=== PATIENT | female | born 1980 | race Hispanic/Latino ===

== ENCOUNTER 2017-03-06 17:26 | Outpatient (RCR) | payer OTHER ==
[~2017-03-06 17:26] MED LIST: ADDERALL 15 MG15 MG PO; AUGMENTIN875 MG MT; CELEXA20 MG PO; DITROPAN XL5 MG PO; KETOROLAC TROME10 MG PO; LEVAQUIN500 MG PO; LORAZEPAM1 MG PO; MACROBID 100 M100 MG PO; TYLENOL # 31 EA PO; TYLENOL WITH C1 EACH PO; ULTRAM 50MG50 MG PO; WELLBUTRIN100 MG PO; Z.0.MACROBID 100 M10 MT; Z.0.TAMIFLU75 MG MT; ZOFRAN ODT4 MG PO
== END 2017-03-31 ==
LOC: PT 17:26
PROVIDERS: ATTEND Neurological Surgery
DX: M51.17 Intervertebral disc disorders with radiculopathy, lumbosacral region (principal); M53.86 Other specified dorsopathies, lumbar region; M62.81 Muscle weakness (generalized)
CPT/HCPCS: 97139

== ENCOUNTER 2017-03-22 06:02 | Emergency (ER) | payer OTHER ==
[~2017-03-22] VITALS: Ht 160 cm; Wt 87.1 kg
[2017-03-22] MEDS ORDERED: PANTOPRAZOLE 40 MG 10ML VIAL IV STA (06:15)
[2017-03-22] MEDS ORDERED: ONDANSETRON HCL INJ 2 MG/ML VIAL IV STA (06:15)
[2017-03-22] MEDS ORDERED: SODIUM CHLORIDE 0.9% 1000ML 1,000 ML IV STA (06:15)
[2017-03-22] MEDS ORDERED: KETOROLAC TROMETHAMINE 30 MG/ML VIAL IV STA (06:15)
[2017-03-22 06:36] LABS: BASOPHILS % 0.2 % (0.0-1.0); EOSINOPHILS # (AUTO) 0.1 (0.0-0.4); EOSINOPHILS % 1.2 % (0.0-6.0); HEMATOCRIT 43.5 % (34.2-44.1); HEMOGLOBIN 14.7 g/dL (12.0-16.0); LYMPHOCYTES # (AUTO) 3.2 (1.0-3.2); LYMPHOCYTES % 34.3 % (18.0-39.1); MEAN CORPUSCULAR HEMOGLOBIN 29.9 pg (28-32); MEAN CORPUSCULAR HGB CONC 33.8 g/dL (31-35); MEAN CORPUSCULAR VOLUME 88.6 fL (81-99); MONOCYTES # (AUTO) 0.7 (0.2-0.8); NEUTROPHILS # (AUTO) 5.3 (2.1-6.9); NEUTROPHILS % 57.1 % (38.7-80.0); PLATELET COUNT 265 x10e3/uL (140-360); RED BLOOD COUNT 4.91 x10e6/uL (3.6-5.1); RED CELL DISTRIBUTION WIDTH 12.8 % (11.7-14.4)
[2017-03-22 06:40] LABS: BILIRUBIN,URINE NEGATIVE (NEGATIVE); CLARITY,URINE HAZY (CLEAR); COLOR,URINE YELLOW (YELLOW); KETONES,URINE NEGATIVE (NEGATIVE); LEUKOCYTE ESTERASE ,URINE NEGATIVE (NEGATIVE); NITRITE,URINE NEGATIVE (NEGATIVE); PROTEIN,URINE DIPSTICK NEGATIVE (NEGATIVE); URINE UROBILINOGEN 0.2 mg/dL (0.2 - 1)
[2017-03-22 06:50] LABS: ALANINE AMINOTRANSFERASE 19 IU/L (0-55); ALBUMIN 3.6 g/dL (3.5-5.0); ALBUMIN/GLOBULIN RATIO 0.9 (0.8-2.0); ALKALINE PHOSPHATASE 58 IU/L (40-150); ANION GAP 12.6 mmol/L (8-16); BLOOD UREA NITROGEN 11 mg/dL (7-26); BUN/CREATININE RATIO 14 (6-25); CALCIUM 9.1 mg/dL (8.4-10.2); CARBON DIOXIDE 26 mmol/L (22-29); CHLORIDE 105 mmol/L (98-107); CREATININE, SERUM 0.77 mg/dL (0.57-1.11); EST GLOMERULAR FILTRATION RATE > 60 ML/MIN (60-); GLUCOSE 98 mg/dL (74-118); POTASSIUM 3.6 mmol/L (3.5-5.1); SODIUM 140 mmol/L (136-145)
[2017-03-22 07:13] LABS: BACTERIA,URINE RARE /HPF; EPITHELIAL CELLS,URINE MODERATE /LPF; WBC,URINE (MAN) 0-5 /HPF (0-5)
[2017-03-22 08:04] VITALS: BP 137/97
== END 2017-03-22 08:28 | disposition home or self-care (01) ==
LOC: ER 06:02
DX: R10.32 Left lower quadrant pain (principal); R11.0 Nausea; N20.1 Calculus of ureter; F17.210 Nicotine dependence, cigarettes, uncomplicated
CPT/HCPCS: 36415; 80053; 81001; 85025; 87086; 96360; 96374; 99284; J1885; J2405; J7030

== ENCOUNTER 2017-10-20 14:05 | Emergency (ER) | payer OTHER ==
[~2017-10-20] VITALS: Ht 160 cm; Wt 83.9 kg
[2017-10-20] MEDS ORDERED: SODIUM CHLORIDE 0.9% 1000ML 1,000 ML IV STA (14:29)
[2017-10-20] MEDS ORDERED: MORPHINE SULFATE INJ 4 MG/ML INJ IV STA (14:29)
[2017-10-20] MEDS ORDERED: ONDANSETRON HCL INJ 2 MG/ML VIAL IV ONE (14:30)
[2017-10-20] MEDS ORDERED: CEFTRIAXONE SOD 1 GM VIAL IV ONE (14:30)
[2017-10-20] MEDS ORDERED: KETOROLAC TROMETHAMINE 30 MG/ML VIAL IV ONE (14:30)
[2017-10-20 14:59] LABS: BASOPHILS % 0.3 % (0.0-1.0); EOSINOPHILS # (AUTO) 0.1 (0.0-0.4); EOSINOPHILS % 1.1 % (0.0-6.0); HEMATOCRIT 47.4 % (34.2-44.1); HEMOGLOBIN 15.3 g/dL (12.0-16.0); LYMPHOCYTES # (AUTO) 1.8 (1.0-3.2); LYMPHOCYTES % 23.7 % (18.0-39.1); MEAN CORPUSCULAR HEMOGLOBIN 30.4 pg (28-32); MEAN CORPUSCULAR HGB CONC 32.3 g/dL (31-35); MEAN CORPUSCULAR VOLUME 94.2 fL (81-99); MONOCYTES # (AUTO) 0.4 (0.2-0.8); MONOCYTES % 5.7 % (4.4-11.3); NEUTROPHILS # (AUTO) 5.3 (2.1-6.9); NEUTROPHILS % 69.1 % (38.7-80.0); PLATELET COUNT 302 x10e3/uL (140-360); RED BLOOD COUNT 5.03 x10e6/uL (3.6-5.1); RED CELL DISTRIBUTION WIDTH 13.2 % (11.7-14.4)
[2017-10-20] MEDS ORDERED: FAMOTIDINE 20 MG/2 ML VIAL IV ONE (15:00)
[2017-10-20 15:14] LABS: CLARITY,URINE CLEAR (CLEAR); COLOR,URINE YELLOW (YELLOW); LEUKOCYTE ESTERASE ,URINE NEGATIVE (NEGATIVE); NITRITE,URINE NEGATIVE (NEGATIVE); PROTEIN,URINE DIPSTICK NEGATIVE (NEGATIVE)
[2017-10-20 15:15] LABS: ALANINE AMINOTRANSFERASE 18 IU/L (0-55); ALBUMIN 3.7 g/dL (3.5-5.0); ALKALINE PHOSPHATASE 65 IU/L (40-150); ANION GAP 10.5 mmol/L (8-16); BLOOD UREA NITROGEN 12 mg/dL (7-26); BUN/CREATININE RATIO 15 (6-25); CALCIUM 9.4 mg/dL (8.4-10.2); CARBON DIOXIDE 29 mmol/L (22-29); CHLORIDE 105 mmol/L (98-107); CREATININE, SERUM 0.78 mg/dL (0.57-1.11); EST GLOMERULAR FILTRATION RATE > 60 ML/MIN (60-); GLUCOSE 100 mg/dL (74-118); POTASSIUM 3.5 mmol/L (3.5-5.1); SODIUM 141 mmol/L (136-145)
[2017-10-20 15:15] LABS: BILIRUBIN,URINE NEGATIVE (NEGATIVE); KETONES,URINE NEGATIVE (NEGATIVE); URINE UROBILINOGEN 0.2 mg/dL (0.2 - 1)
[2017-10-20 15:23] LABS: BACTERIA,URINE FEW /HPF; CALCIUM OXALATE CRYSTALS,UR FEW (FEW); EPITHELIAL CELLS,URINE FEW /LPF; WBC,URINE (MAN) 0-5 /HPF (0-5)
--- NOTE | 2017-10-20 16:27 | Diagnostic Imaging Report ---
EXAM: CT Abdomen and Pelvis WITHOUT contrast INDICATION: Right-sided flank pain. Kidney stones. COMPARISON: 06/13/2016. TECHNIQUE: Abdomen and pelvis were scanned utilizing a multidetector helical scanner from the lung base to the pubic symphysis without administration of IV contrast. Absence of intravenous contrast decreases sensitivity for detection of focal lesions and vascular pathology. Coronal and sagittal reformations were obtained. Routine protocol was performed. IV CONTRAST: None. ORAL CONTRAST: Water RADIATION DOSE: Total DLP: 580.64 mGy*cm Estimated effective dose: (DLP x 0.015 x size factor) mSv COMPLICATIONS: None FINDINGS: LINES and TUBES: None. LOWER THORAX: Unremarkable HEPATOBILIARY: No focal hepatic lesions. No biliary ductal dilation. GALLBLADDER: No radio-opaque stones or sludge. No wall thickening. SPLEEN: No splenomegaly. PANCREAS: No focal masses or ductal dilatation. ADRENALS: No adrenal nodules. KIDNEYS/URETERS: No hydronephrosis. No cystic or solid mass lesions. Bilateral nonobstructing renal calculi, left more numerous than right, the largest in the upper pole of the left knee measures 5 mm and coronal image 69. GI TRACT: No abnormal distention, wall thickening, or evidence of bowel obstruction. Appendix is normal. PELVIC ORGANS/BLADDER: The uterus is not visualized consistent with hysterectomy. Unchanged pelvic phleboliths. LYMPH NODES: No lymphadenopathy. VESSELS: Unremarkable. PERITONEUM / RETROPERITONEUM: No free air or fluid. BONES: Sclerotic lesions pelvic bones unchanged. No acute osseous abnormality. Degenerative disc disease at L5-S1. Status post left laminectomy at L5. SOFT TISSUES: Unremarkable. IMPRESSION: 1. Bilateral nonobstructing nephrolithiasis, left greater than right. No evidence of obstructive uropathy. Signed by: Dr. Keeley Cooper M.D. on 10/20/2017 4:24 PM
[2017-10-20 17:40] VITALS: BP 128/76
== END 2017-10-20 17:45 | disposition home or self-care (01) ==
LOC: ER 14:05
DX: R10.31 Right lower quadrant pain (principal); F41.9 Anxiety disorder, unspecified; F32.9 Major depressive disorder, single episode, unspecified
CPT/HCPCS: 36415; 74176; 80053; 81001; 84702; 85025; 87086; 87186; 99284; J0696; J1885; J2270; J2405; J7030

== ENCOUNTER 2017-12-17 03:18 | Observation (INO) | payer OTHER ==
[~2017-12-17] VITALS: Ht 160 cm; Wt 83.9 kg
[2017-12-17] VITALS (7 sets, daily range): BP systolic 107–138; BP diastolic 68–82
[2017-12-17] MEDS ORDERED: HYDROMORPHONE 1MG/1ML INJ IV STA (03:42)
[2017-12-17] MEDS ORDERED: ONDANSETRON HCL INJ 2 MG/ML VIAL IV STA (03:42)
[2017-12-17] MEDS ORDERED: SODIUM CHLORIDE 0.9% 1000ML 1,000 ML IV STA (03:42)
[2017-12-17] MEDS ORDERED: KETOROLAC TROMETHAMINE 30 MG/ML VIAL IV STA (03:42)
[2017-12-17 04:03] LABS: BASOPHILS % 0.4 % (0.0-1.0); EOSINOPHILS # (AUTO) 0.1 (0.0-0.4); EOSINOPHILS % 0.6 % (0.0-6.0); HEMATOCRIT 44.3 % (34.2-44.1); HEMOGLOBIN 14.6 g/dL (12.0-16.0); LYMPHOCYTES # (AUTO) 3.9 (1.0-3.2); LYMPHOCYTES % 34.7 % (18.0-39.1); MEAN CORPUSCULAR VOLUME 94.1 fL (81-99); MONOCYTES # (AUTO) 0.6 (0.2-0.8); NEUTROPHILS # (AUTO) 6.6 (2.1-6.9); PLATELET COUNT 284 x10e3/uL (140-360); RED BLOOD COUNT 4.71 x10e6/uL (3.6-5.1); RED CELL DISTRIBUTION WIDTH 12.3 % (11.7-14.4)
[2017-12-17 04:07] LABS: BILIRUBIN,URINE NEGATIVE (NEGATIVE); CLARITY,URINE TURBID (CLEAR); COLOR,URINE AMBER (YELLOW); KETONES,URINE NEGATIVE (NEGATIVE); LEUKOCYTE ESTERASE ,URINE TRACE (NEGATIVE); NITRITE,URINE NEGATIVE (NEGATIVE); PROTEIN,URINE DIPSTICK 2+ (NEGATIVE); URINE UROBILINOGEN 0.2 mg/dL (0.2 - 1)
[2017-12-17 04:08] LABS: BACTERIA,URINE FEW /HPF; EPITHELIAL CELLS,URINE FEW /LPF; MUCUS,URINE FEW (RARE); RBC,URINE >50 /HPF (0-5)
[2017-12-17 04:12] LABS: INR 1.09; PROTHROMBIN TIME 13.3 seconds (11.9-14.5)
[2017-12-17 04:13] LABS: PARTIAL THROMBOPLASTIN TIME 30.1 seconds (23.8-35.5)
[2017-12-17 04:23] LABS: ALANINE AMINOTRANSFERASE 20 IU/L (0-55); ALBUMIN 3.7 g/dL (3.5-5.0); ALKALINE PHOSPHATASE 62 IU/L (40-150); ANION GAP 14.4 mmol/L (8-16); BLOOD UREA NITROGEN 9 mg/dL (7-26); BUN/CREATININE RATIO 12 (6-25); CALCIUM 9.3 mg/dL (8.4-10.2); CARBON DIOXIDE 27 mmol/L (22-29); CHLORIDE 104 mmol/L (98-107); CREATINE KINASE 198 IU/L (29-168); CREATININE, SERUM 0.76 mg/dL (0.57-1.11); EST GLOMERULAR FILTRATION RATE > 60 ML/MIN (60-); GLUCOSE 115 mg/dL (74-118); MAGNESIUM 1.7 MG/DL (1.3-2.1); POTASSIUM 3.4 mmol/L (3.5-5.1); SODIUM 142 mmol/L (136-145)
--- NOTE | 2017-12-17 04:58 | Diagnostic Imaging Report ---
EXAM: CT ABDOMEN AND PELVIS without IV CONTRAST INDICATION: Left flank pain, hematuria COMPARISON: CT of the abdomen and pelvis October 20, 2017 TECHNIQUE: The abdomen and pelvis were scanned using a multidetector helical scanner. Coronal and sagittal reformations were obtained. Dose modulation, iterative reconstruction, and/or weight based adjustment of the mA/kV was utilized to reduce the radiation dose to as low as reasonably achievable. Renal stone protocol performed. IV Contrast: None Oral Contrast: None CTDIvol has been reviewed. It is below the limits set by the Radiation Protocol Committee (RPC). FINDINGS: LOWER THORAX: No consolidations LIVER: No masses BILIARY: Normal gallbladder. No ductal dilation. SPLEEN: No masses PANCREAS: No masses ADRENALS: No nodules RIGHT KIDNEY: Stable punctate stones in the inferior pole calyx. No hydronephrosis. No ureteral stones. LEFT KIDNEY: There is a new 3 x 4 mm stone in the proximal left ureter at the L3 level resulting in mild hydroureteronephrosis. There are multiple stones throughout the left kidney measuring up to 3 mm. GI TRACT: No wall thickening or obstruction. Normal appendix. VESSELS: Incidental duplicated IVC. PERITONEUM/RETROPERITONEUM: No free air or fluid LYMPH NODES: No lymphadenopathy REPRODUCTIVE ORGANS: The uterus and right ovary are not visualized. BLADDER: Decompressed. SOFT TISSUES: Normal BONES: Stable bone island right iliac wing. IMPRESSION: There is a new 3 x 4 mm stone in the proximal left ureter at the L3 level resulting in mild hydroureteronephrosis. Bilateral nephrolithiasis. Signed by: Dr. Le Oconnor M.D. on 12/17/2017 4:54 AM
[2017-12-17] MEDS ORDERED: CEFTRIAXONE SOD 1 GM VIAL IV STA (05:07)
[2017-12-17] MEDS ORDERED: CEFTRIAXONE SOD 1 GM VIAL ONE (05:09)
[2017-12-17] MEDS ORDERED: HYDROMORPHONE 1MG/1ML INJ IV PRN (05:30)
--- NOTE | 2017-12-17 05:46 | Diagnostic Imaging Report ---
EXAM: CHEST SINGLE (PORTABLE), AP 1 view INDICATION: Left flank pain, hematuria COMPARISON: None FINDINGS: LINES/TUBES: None LUNGS: No consolidations or edema. PLEURA: No effusions or pneumothorax. HEART AND MEDIASTINUM: Normal size and contour. BONES AND SOFT TISSUES: No acute findings. IMPRESSION: No acute thoracic abnormality. Signed by: Dr. Le Oconnor M.D. on 12/17/2017 5:41 AM
[2017-12-17] MEDS: SODIUM CHLORIDE 0.9% 1000ML 1,000 ML IV SCH ×2 (06:07→23:20)
[2017-12-17] MEDS: HYDROMORPHONE 2MG/ML 2 MG/ML ML IV PRN ×2 (09:15→20:51)
[2017-12-17] MEDS: ONDANSETRON HCL INJ 2 MG/ML VIAL IV PRN ×2 (09:15→20:50)
[2017-12-17] MEDS ORDERED: POTASSIUM CHLORIDE 20 MEQ TAB CR PO STA (09:38)
[2017-12-17] MEDS ORDERED: HYDRALAZINE HCL 20 MG/ML VIAL IV PRN (10:00)
[2017-12-17] MEDS ORDERED: POTASSIUM CHLORIDE 20MEQ/100ML 100 ML IV ONE (10:00)
[2017-12-17] MEDS ORDERED: ACETAMINOPHEN 325 MG TAB PO PRN (10:00)
[2017-12-17 12:22] LABS: CREATINE KINASE 161 IU/L (29-168)
--- NOTE | 2017-12-17 13:03 | Diagnostic Imaging Report ---
EXAMINATION: ABDOMEN-1VIEW (KUB) INDICATION: Renal stone COMPARISON: CT abdomen/pelvis 12/17/17. FINDINGS: A 4 mm left ureteral stone projects at the L3 level, similar to position on same day CT scan. Punctate bilateral renal stones as noted on CT. Non-obstructive bowel gas pattern. IMPRESSION: Similar position of 4 mm left ureteral stone compared to same day CT. Punctate bilateral renal stones, as noted on prior CT. Signed by: Dr. Wade Brown MD on 12/17/2017 12:59 PM
[2017-12-17] MEDS ORDERED: IOPAMIDOL 300MG/ML 50ML INFUS..BTL IV ONE (14:28)
[2017-12-17] MEDS ORDERED: MIDAZOLAM HCL 2 MG/2 ML VIAL ONE (14:46)
[2017-12-17] MEDS ORDERED: FENTANYL CITRATE/PF 100MCG/2 ML INJ ONE ×2 (14:46→15:48)
[2017-12-17] MEDS ORDERED: ACETAMINOPHEN/CODEINE 300MG - 30MG TAB PO PRN (15:45)
--- NOTE | 2017-12-17 16:58 | Operative Report ---
DATE OF PROCEDURE: December 17, 2017 PREOPERATIVE DIAGNOSES 1. Left hydronephrosis due to stone. 2. Hematuria. 3. Pyuria. OPERATION PERFORMED: 1. Cystourethroscopy with bilateral ureteral catheterization and retrograde ureteropyelography (separate procedure performed for the hematuria and pyuria. 2. Interpretation of retrograde ureteropyelography. 3. Supervision of fluoroscopy. No radiologist present. 4. Cystourethroscopy with insertion of left indwelling ureteral stent (separate procedure performed to relieve the hydronephrosis. 5. Pelvic examination under anesthesia. ANESTHESIA: General. COMPLICATIONS: None. CLINICAL SUMMARY: Please refer to consultation dictation on the same date. OPERATIVE PROCEDURE IN DETAIL: Informed consent was verified. Kena Worthy was properly identified, taken to the operating room, placed on the cystoscopy table in supine position. Anesthesia was uneventfully begun. The patient was then carefully and gently repositioned in dorsal lithotomy position with all pressure points well padded. Her genitalia were prepared and draped, usual sterile fashion. The 22.5-Vietnamese cystoscope sheath with the obturator in place was atraumatically inserted into patient's urethra and the bladder was drained. Panendoscopy of the urinary bladder revealed no suspicious mucosal lesions, no tumors, no stones, and no diverticula. Normally positioned and configured ureteral orifices were identified. An open-ended catheter was used to cannulate the right ureter and retrograde ureteropyelograms were performed. It was then inserted in the left ureter and retrograde ureteral pyelograms were performed. Utilizing a wire, we advanced the open-ended catheter by the proximal ureteral stone. The stone did not budge and did not move, and we were unable to dislodge it with the open-ended catheter. A clear but brisk hydronephrotic drip was obtained; indicated the patient was severely obstructed and with significant pressure inside her intrarenal collecting system. With cystoscopic and fluoroscopic guidance, a left-sided indwelling ureteral stent was then placed. It was coiled in patient's kidney as well as patient's bladder. The retaining suture was cut short. Patient's bladder was drained. The cystoscope was withdrawn. Pelvic examination under anesthesia revealed mild urethral hypermobility. No tumors were identified that could be palpable. There no obvious mucosal lesions. Patient was then uneventfully reversed from anesthesia and taken to recovery room in stable condition. Interpretation of retrograde ureteropyelography: Contrast was instilled in retrograde fashion bilaterally. The right side was unremarkable. There were no tumors, no stones. There were no diverticula. Unobstructed drainage was observed. The left side exhibited a stone that was obstructing the proximal left ureter, with hydroureteronephrosis. The stent was in good position, coiled in patient's kidney as well as patient's bladder at the end the case. Plan will be to discharge the patient home on analgesics, antibiotics, and antispasmodics, once the patient's pain is controlled. Following this, we will bring her as an outpatient electively to remove her stent, perform ureteroscopy with laser lithotripsy. Job#: [id number] [place]
[2017-12-17] MEDS ORDERED: D AMPHET PO SCH (17:00)
[2017-12-17] MEDS ORDERED: AMPHET PO SCH (17:00)
[2017-12-17] MEDS ORDERED: AMPHET ASP PO SCH (17:00)
[2017-12-17] MEDS: AMPHET ASP PO SCH (17:00)
[2017-12-17] MEDS: D AMPHET PO SCH (17:00)
[2017-12-17] MEDS: AMPHET PO SCH (17:00)
[2017-12-17] MEDS ORDERED: LIDOCAINE HCL 2% LOCAL INJ 5 ML SDV VIAL INJ ONE (17:59)
[2017-12-17] MEDS ORDERED: DEXAMETHASONE SOD PHOS INJ 4 MG/ML VIAL ONE (17:59)
[2017-12-17] MEDS ORDERED: SEVOFLURANE INHAL SOLN 250 ML PEN BTL ONE (17:59)
[2017-12-17] MEDS ORDERED: PROPOFOL IV EMULSION 10 MG/ML 20 ML VIAL ONE (17:59)
[2017-12-17] MEDS ORDERED: ONDANSETRON HCL INJ 2 MG/ML VIAL ONE (17:59)
[2017-12-17] MEDS: PHENAZOPYRIDINE HCL 100 MG TAB PO SCH (18:21)
[2017-12-17] MEDS: FAMOTIDINE 20 MG/2 ML VIAL IV SCH (18:21)
--- NOTE | 2017-12-17 18:44 | Consultation ---
DATE OF CONSULTATION: December 17, 2017 UROLOGY CONSULTATION REASON FOR CONSULTATION: Renal colic. HISTORY OF PRESENT ILLNESS: Kena Worthy is a 37-year-old patient of mine who was admitted with severe left-sided flank pain and nausea. The patient was found to have left-sided hydronephrosis due to an obstructing left ureteral stone. Patient also has left-sided kidney stones. She did note gross hematuria but did not have any dysuria. Patient's pain is severe, and she desires the pain improved. She has been requiring intravenous analgesics. PAST MEDICAL HISTORY, PAST SURGICAL HISTORY, SOCIAL HISTORY AND FAMILY HISTORY: Please refer to my office chart. REVIEW OF SYSTEMS: As consistent with above history of present illness and past medical history, is otherwise negative for all other systems. CURRENT MEDICATIONS: Please refer to the MAR. ALLERGIES: NONE KNOWN. PHYSICAL EXAMINATION GENERAL: A healthy-appearing 37-year-old woman lying in bed in no apparent distress. VITAL SIGNS: She is currently afebrile. Her vital signs are currently stable. ABDOMEN: Soft, nondistended. It is tender in the left flank with left-sided costovertebral angle tenderness. Kidneys are not palpable, without hepatosplenomegaly. No obvious evidence of hernia. For the remaining physical examination and systems, please refer to the admission history and physical on the chart and the ERT sheet. LABORATORY STUDIES: CT scan of the abdomen and pelvis revealed a 4 mm obstructing stone in the proximal left ureter with multiple stones in the left kidney up to 3 mm in size. There is left-sided hydroureteronephrosis down to the level of the stone. A urine culture is pending. White blood cell count is elevated at 11,120, hemoglobin 14.6, platelets 284,000. The patient's potassium is slightly low at 3.4. Creatinine is normal at 0.76. PT and INR are negative. The patient's urinalysis showed greater than 50 RBCs, 6-10 WBCs and a few bacteria. ASSESSMENT 1. Left renal colic. 2. Nausea. 3. Left-sided ureteronephrosis due to stone. 4. Left ureterolithiasis. 5. Left nephrolithiasis. 6. Gross hematuria. 7. Leukocytosis. 8. Hypokalemia. 9. Pyuria. 10. Obesity. PLAN: The patient desires this management and does not want to hurt anymore. I offered her stone passage trial with analgesics and hydration versus ureteral stenting. The patient chose to proceed with ureteral stenting in order to relieve her pain. She understands she will have a temporary indwelling ureteral stent that requires followup and removal. Once the patient's stent is in place, she may be discharged home on analgesics, antibiotics and antispasmodics with oral Pyridium as needed and to follow up for outpatient ureteroscopy with stone management. Thank you very much for involving us in the care of your patient. We will be happy to follow her along with you as well as an outpatient. Job#: [id number] EV cc:VIANEY SOTO MD
[2017-12-17] MEDS: OXYBUTYNIN CHLORIDE 5 MG TAB PO SCH (20:50)
[2017-12-17 21:27] LABS: CREATINE KINASE 132 IU/L (29-168)
[2017-12-18] VITALS (8 sets, daily range): BP systolic 114–136; BP diastolic 57–76
[2017-12-18] MEDS: HYDROCODONE/APAP 5MG-325MG TAB PO PRN ×3 (00:11→22:00)
[2017-12-18] MEDS: SODIUM CHLORIDE 0.9% 1000ML 1,000 ML IV SCH ×3 (00:11→23:20)
[2017-12-18] MEDS: ONDANSETRON HCL INJ 2 MG/ML VIAL IV PRN ×4 (01:54→23:20)
[2017-12-18] MEDS: HYDROMORPHONE 2MG/ML 2 MG/ML ML IV PRN ×6 (01:54→23:20)
[2017-12-18 03:53] LABS: BASOPHILS % 0.1 % (0.0-1.0); HEMATOCRIT 41.9 % (34.2-44.1); HEMOGLOBIN 13.6 g/dL (12.0-16.0); LYMPHOCYTES # (AUTO) 1.1 (1.0-3.2); LYMPHOCYTES % 8.4 % (18.0-39.1); MEAN CORPUSCULAR HEMOGLOBIN 31.2 pg (28-32); MEAN CORPUSCULAR HGB CONC 32.5 g/dL (31-35); MEAN CORPUSCULAR VOLUME 96.1 fL (81-99); MONOCYTES # (AUTO) 0.2 (0.2-0.8); MONOCYTES % 1.9 % (4.4-11.3); NEUTROPHILS # (AUTO) 11.5 (2.1-6.9); NEUTROPHILS % 89.3 % (38.7-80.0); PLATELET COUNT 271 x10e3/uL (140-360); RED BLOOD COUNT 4.36 x10e6/uL (3.6-5.1); RED CELL DISTRIBUTION WIDTH 12.5 % (11.7-14.4)
[2017-12-18 04:14] LABS: ANION GAP 11.7 mmol/L (8-16); BLOOD UREA NITROGEN 8 mg/dL (7-26); BUN/CREATININE RATIO 11 (6-25); CALCIUM 8.7 mg/dL (8.4-10.2); CARBON DIOXIDE 24 mmol/L (22-29); CHLORIDE 108 mmol/L (98-107); CREATINE KINASE 90 IU/L (29-168); CREATININE, SERUM 0.73 mg/dL (0.57-1.11); EST GLOMERULAR FILTRATION RATE > 60 ML/MIN (60-); GLUCOSE 134 mg/dL (74-118); MAGNESIUM 1.6 MG/DL (1.3-2.1); POTASSIUM 4.7 mmol/L (3.5-5.1); SODIUM 139 mmol/L (136-145)
[2017-12-18] MEDS: CEFTRIAXONE SOD 1 GM VIAL IV SCH (04:25)
[2017-12-18] MEDS: FAMOTIDINE 20 MG/2 ML VIAL IV SCH ×2 (09:00→17:00)
[2017-12-18] MEDS: OXYBUTYNIN CHLORIDE 5 MG TAB PO SCH ×3 (09:00→21:00)
[2017-12-18] MEDS: PHENAZOPYRIDINE HCL 100 MG TAB PO SCH ×3 (09:00→18:00)
[2017-12-18] MEDS: AMPHET PO SCH ×2 (09:00→17:00)
[2017-12-18] MEDS: AMPHET ASP PO SCH ×2 (09:00→17:00)
[2017-12-18] MEDS: D AMPHET PO SCH ×2 (09:00→17:00)
[2017-12-19] VITALS: BP 129/69
[2017-12-19] MEDS: HYDROMORPHONE 2MG/ML 2 MG/ML ML IV PRN ×2 (00:35→04:40)
[2017-12-19 04:00] VITALS: BP 141/68
[2017-12-19] MEDS: ONDANSETRON HCL INJ 2 MG/ML VIAL IV PRN (04:40)
[2017-12-19] MEDS ORDERED: SODIUM CHLORIDE 0.9% 50ML 50 ML ONE (04:42)
[2017-12-19] MEDS: CEFTRIAXONE SOD 1 GM VIAL IV SCH (04:59)
[2017-12-19 05:19] LABS: BASOPHILS % 0.3 % (0.0-1.0); EOSINOPHILS # (AUTO) 0.1 (0.0-0.4); EOSINOPHILS % 0.6 % (0.0-6.0); HEMATOCRIT 37.8 % (34.2-44.1); HEMOGLOBIN 12.3 g/dL (12.0-16.0); LYMPHOCYTES # (AUTO) 3.4 (1.0-3.2); LYMPHOCYTES % 31.9 % (18.0-39.1); MEAN CORPUSCULAR HEMOGLOBIN 31.4 pg (28-32); MEAN CORPUSCULAR HGB CONC 32.5 g/dL (31-35); MEAN CORPUSCULAR VOLUME 96.4 fL (81-99); MONOCYTES # (AUTO) 0.6 (0.2-0.8); NEUTROPHILS # (AUTO) 6.5 (2.1-6.9); NEUTROPHILS % 60.9 % (38.7-80.0); PLATELET COUNT 233 x10e3/uL (140-360); RED BLOOD COUNT 3.92 x10e6/uL (3.6-5.1); RED CELL DISTRIBUTION WIDTH 12.9 % (11.7-14.4)
[2017-12-19 05:50] LABS: BLOOD UREA NITROGEN 13 mg/dL (7-26); BUN/CREATININE RATIO 18 (6-25); CALCIUM 8.6 mg/dL (8.4-10.2); CARBON DIOXIDE 26 mmol/L (22-29); CHLORIDE 108 mmol/L (98-107); CREATININE, SERUM 0.72 mg/dL (0.57-1.11); EST GLOMERULAR FILTRATION RATE > 60 ML/MIN (60-); GLUCOSE 98 mg/dL (74-118); MAGNESIUM 1.5 MG/DL (1.3-2.1); SODIUM 142 mmol/L (136-145)
[2017-12-19 07:35] VITALS: BP 148/79
[2017-12-19 08:00] VITALS: BP 148/79
[2017-12-19] MEDS: OXYBUTYNIN CHLORIDE 5 MG TAB PO SCH (09:00)
[2017-12-19] MEDS: AMPHET PO SCH (09:00)
[2017-12-19] MEDS ORDERED: TRIMETHOPRIM/SULFAMETHOXAZOLE 160-800 MG TAB PO SCH (09:00)
[2017-12-19] MEDS: PHENAZOPYRIDINE HCL 100 MG TAB PO SCH (09:00)
[2017-12-19] MEDS: FAMOTIDINE 20 MG/2 ML VIAL IV SCH (09:00)
[2017-12-19] MEDS: AMPHET ASP PO SCH (09:00)
[2017-12-19] MEDS: D AMPHET PO SCH (09:00)
[2017-12-19] MEDS ORDERED: OXYBUTYNIN CHLOR5 MG PO (09:25)
[2017-12-19] MEDS ORDERED: BACTRIM DS TAB1 EACH PO (09:25)
[2017-12-19] MEDS ORDERED: ONDANSETRON ODT8 MG PO (09:25)
[2017-12-19] MEDS ORDERED: TYLENOL # 31 EA PO (09:25)
[2017-12-19] MEDS ORDERED: MORPHINE SULFATE 2 MG/ML SYR IV PRN (09:45)
[2017-12-19] MEDS ORDERED: MORPHINE SULFATE INJ 4 MG/ML INJ IV PRN (09:45)
--- NOTE | 2017-12-19 10:43 | Discharge Summary ---
ADMISSION DIAGNOSES 1. Left ureteral stone with mild hydroureteronephrosis. 2. Hypokalemia. 3. Urinary tract infection. 4. Elevated CK and CK-MB. 5. Attention deficit disorder. DISCHARGE DIAGNOSES 1. Left ureteral stone with mild hydroureteronephrosis. 2. Hypokalemia. 3. Urinary tract infection. 4. Elevated CK and CK-MB. 5. Attention deficit disorder. HISTORY: The patient has a history of ADD and nephrolithiasis. Surgical history of L5-S1 laminotomy, facetectomy and diskectomy, , tubal ligation, hemorrhoidectomy. Family history of diabetes with her grandmother and cancer in her grandfather. The patient drinks alcohol occasionally, and denies illicit drugs and tobacco. HOSPITAL COURSE: A 37-year-old female complains of dull abdominal pain that began yesterday evening. At 3 a.m., the pain became sharp and associated with nausea. She denies vomiting, diarrhea, fever, dysuria. She does admit to hematuria. Pain is worse with movement and improved with medicines. On admission, the patient was started on IV fluids, pain control and urology was consulted. Due to the UTI, the patient was started on Rocephin pending a urine culture. Chest x-ray on admission was negative. CT of the abdomen showed 3 x 4 mm stone in the proximal left ureter at the L3 level resulting in mild hydroureteronephrosis, bilateral nephrolithiasis. KUB showed a similar position of a 4 mm left ureter stone. Urine came back positive for Staph epidermidis. The patient was started on Bactrim and Rocephin stopped. On December 17, 2017, the patient had a cystourethroscopy with bilateral ureteral catheterization and retrograde and left indwelling ureteral stent placement. On the day of discharge, vital signs are stable. The patient is afebrile. The patient is feeling better, but still having mild pain to her abdomen. The patient will follow up with Dr. Alexandra in about 3 weeks and primary care in 1-2 weeks. She will be sent home with Bactrim, Ditropan, Zofran, and Tylenol 3 per urology. She will continue her home ADD medications. The patient understands discharge instructions and agrees to plan. DICTATED BY JENNIE CLEMONS NP AMRIT DUNN MD Job#: [id number] [place]
== END 2017-12-19 11:41 | disposition home or self-care (01) ==
LOC: ER 03:18 → ERHOLD 05:51 → MED/SURG3 07:06
PROVIDERS: ADMIT Internal Medicine; ATTEND Internal Medicine
DX: N13.2 Hydronephrosis with renal and ureteral calculous obstruction (principal); N30.01 Acute cystitis with hematuria; R00.1 Bradycardia, unspecified; F98.8 Other specified behavioral and emotional disorders with onset usually occurring in childhood and adolescence; Z83.3 Family history of diabetes mellitus; Z80.9 Family history of malignant neoplasm, unspecified; E87.6 Hypokalemia; E66.9 Obesity, unspecified; D72.829 Elevated white blood cell count, unspecified; R79.89 Other specified abnormal findings of blood chemistry; B95.7 Other staphylococcus as the cause of diseases classified elsewhere; Z68.32 Body mass index [BMI] 32.0-32.9, adult
CPT/HCPCS: 36415 ×3; 52332; 71045; 74018; 74176; 74420; 80048 ×2; 80053; 81001; 82550 ×2; 82553 ×2; 83735 ×3; 83880; 84484 ×2; 85025 ×3; 85610; 85730; 87086; 87186; 93005; 96374; 99284; C1758; C2617; G0378 ×3; J0696 ×3; J1100; J1170 ×4; J1885; J2001; J2250; J2270; J2405 ×3; J3480; J7030 ×2; Q9967

== ENCOUNTER → 2018-01-30 | Outpatient (CLI) | payer OTHER ==
[~2018-01-30] MED LIST changes: +BACTRIM DS TAB1 EACH PO; +ONDANSETRON ODT8 MG PO; +OXYBUTYNIN CHLOR5 MG PO; +ULTRAM50 MG PO
--- NOTE | 2018-01-30 16:04 | Diagnostic Imaging Report ---
Exam: KUB. Clinical History: Calculus of ureter Comparison: 12/17/2017 Findings: Frontal view of the abdomen demonstrates a nonobstructive bowel gas pattern with moderate retained stool. Small stones over the lower left and right kidney.Left ureteral catheter in place. Impression: Small stones over the lower left and right kidney.Left ureteral catheter in place. Signed by: Dr. Art Reyna M.D. on 01/30/2018 4:01 PM
== END ==
LOC: RAD 14:55
PROVIDERS: ATTEND Urology
DX: N20.1 Calculus of ureter (principal)
CPT/HCPCS: 74018

== ENCOUNTER 2018-02-04 13:25 | Inpatient (IN) | payer OTHER ==
[~2018-02-04] VITALS: Ht 160 cm; Wt 81.3 kg
[~2018-02-04 13:25] MED LIST changes: -ULTRAM50 MG PO
--- OUTSIDE RECORDS SUMMARY | 2018-02-04 13:30 | XMS REPORT | Clinical Summary ---
Author Author [facility] Address Unknown Phone Unavailable Care Team Providers Care Ticker Wirer Name Role Phone J Carlos Boland MD PCP Allergies No Known Allergies Current Medications Prescription Sig. Disp. Refills Start End Date Status Date dextroamphetamine-ampheta Take 15 mg by mouth Active mine (ADDERALL) 10 mg daily. tablet traMADol (ULTRAM) 50 mg Take 50 mg by mouth every Active tablet 6 (six) hours as needed for moderate pain. acetaminophen-codeine Take 1-2 tablets by mouth 15 tablet 0 20 03/19/20 Discontin (TYLENOL WITH CODEINE #3) every 6 (six) hours as 17 17 ued 300-30 mg per tablet needed for moderate pain for up to 3 days. ondansetron ODT (ZOFRAN Take 1 tablet (4 mg 15 tablet 0 03/16/20 03/26/20 ODT) 4 MG disintegrating total) by mouth every 8 17 17 tablet (eight) hours as needed for nausea or vomiting for up to 10 days. ciprofloxacin (CIPRO) 500 Take 1 tablet (500 mg 14 tablet 0 03/16/20 03/23/20 MG tablet total) by mouth 2 (two) 17 17 times a day for 7 days. tamsulosin (FLOMAX) 0.4 Take 1 capsule (0.4 mg 7 capsule 0 03/16/20 03/23/20 mg capsule,extended total) by mouth daily for 17 17 release 24hr 7 days. acetaminophen-codeine Take 1-2 tablets by mouth 15 tablet 0 20 03/22/20 (TYLENOL WITH CODEINE #3) every 6 (six) hours as 17 17 300-30 mg per tablet needed for moderate pain for up to 3 days. Active Problems Not on file Encounters Date Type Specialty Care Team Description 03/18/2017 Emergency Emergency Medicine David Brownlee Flank pain (Primary Dx); - MD Basil Renal colic on left side 03/19/2017 03/16/2017 Emergency Emergency Medicine Jimmie Aguilar MD Nephrolithiasis (Primary Dx) after 02/03/2017 Social History Tobacco Use Types Packs/Day Years Used Date Current Every Day Smoker Cigarettes 0.2 1 Smokeless Tobacco: Never Used Tobacco Cessation: Ready to Quit: No; Counseling Given: Yes Alcohol Use Drinks/Week oz/Week Comments Yes Socially Sex Assigned at Date Recorded Not on file Last Filed Vital Signs Vital Sign Reading Time Taken Blood Pressure 152/65 03/19/2017 1:54 AM [facility] Pulse 59 03/19/2017 1:54 AM [facility] Temperature 36.7 C (98.1 F) 03/18/2017 6:22 PM [facility] Respiratory Rate 20 03/18/2017 6:22 PM [facility] Oxygen Saturation 100% 03/19/2017 1:54 AM [facility] Inhaled Oxygen - - Concentration Weight - - Height 160 cm (5' 3") 03/16/2017 11:49 AM [facility] Body Mass Index - - Plan of Treatment Health Maintenance Due Date Last Done Comments CERVICAL CANCER SCREENING 06/29/2000 INFLUENZA VACCINE 10/30/2017 Procedures Procedure Name Priority Date/Time Associated Diagnosis Comments HCG QUALITATIVE, URINE Routine 03/19/2017 Results for this SCREEN 12:27 AM [facility] procedure are in the results section. URINALYSIS SCREEN AND Routine 03/19/2017 Results for this MICROSCOPY, WITH REFLEX 12:27 AM [facility] procedure are in the TO CULTURE results section. URINE CULTURE Routine 03/19/2017 Results for this 12:27 AM [facility] procedure are in the results section. GRAM STAIN Routine 03/19/2017 Results for this 12:27 AM [facility] procedure are in the results section. ZZESTIMATED GFR STAT 03/18/2017 Results for this 10:50 PM [facility] procedure are in the results section. COMPREHENSIVE METABOLIC STAT 03/18/2017 Results for this PANEL 10:50 PM [facility] procedure are in the results section. HC COMPLETE BLD COUNT STAT 03/18/2017 Results for this W/AUTO DIFF 10:50 PM [facility] procedure are in the results section. CT RENAL STONE PROTOCOL STAT 03/16/2017 Results for this 1:21 PM [facility] procedure are in the results section. ZZESTIMATED GFR STAT 03/16/2017 Results for this 12:25 PM [facility] procedure are in the results section. COMPREHENSIVE METABOLIC STAT 03/16/2017 Results for this PANEL 12:25 PM [facility] procedure are in the results section. HC COMPLETE BLD COUNT STAT 03/16/2017 Results for this W/AUTO DIFF 12:25 PM [facility] procedure are in the results section. HCG QUALITATIVE, URINE Routine 03/16/2017 Results for this SCREEN 12:25 PM [facility] procedure are in the results section. URINALYSIS SCREEN AND Routine 03/16/2017 Results for this MICROSCOPY, WITH REFLEX 12:25 PM [facility] procedure are in the TO CULTURE results section. GRAM STAIN Routine 03/16/2017 Results for this 12:25 PM [facility] procedure are in the results section. URINE CULTURE Routine 03/16/2017 Results for this 12:25 PM [facility] procedure are in the results section. after 02/03/2017 Results * Urinalysis screen and microscopy, with reflex to culture (03/19/2017 12:27 AM) Only the most recent of 2 results within the time period is included. Specimen site Clean catch [facility] DEPARTMENT OF PATHOLOGY AND GENOMIC MEDICINE Color, UA Yellow [facility] DEPARTMENT OF PATHOLOGY AND GENOMIC MEDICINE Appearance, UA Slightly-Cloudy [facility] DEPARTMENT OF PATHOLOGY AND GENOMIC MEDICINE Specific gravity, UA 1.016 1.001 - 1.035 [facility] DEPARTMENT OF PATHOLOGY AND GENOMIC MEDICINE pH, UA 5.0 5.0 - 8.5 [facility] DEPARTMENT OF PATHOLOGY AND GENOMIC MEDICINE Protein, UA Negative Negative [facility] DEPARTMENT OF PATHOLOGY AND GENOMIC MEDICINE Glucose, UA Negative Negative [facility] DEPARTMENT OF PATHOLOGY AND GENOMIC MEDICINE Ketones, UA Negative Negative [facility] DEPARTMENT OF PATHOLOGY AND GENOMIC MEDICINE Bilirubin, UA Negative Negative [facility] DEPARTMENT OF PATHOLOGY AND GENOMIC MEDICINE Blood, UA Large (A) Negative [facility] DEPARTMENT OF PATHOLOGY AND GENOMIC MEDICINE Nitrite, UA Negative Negative [facility] DEPARTMENT OF PATHOLOGY AND GENOMIC MEDICINE Urobilinogen, UA Negative <2.0 [facility] DEPARTMENT OF PATHOLOGY AND GENOMIC MEDICINE Leukocyte esterase, UA Negative Negative [facility] DEPARTMENT OF PATHOLOGY AND GENOMIC MEDICINE Epithelial cells, UA Moderate /HPF [facility] DEPARTMENT OF PATHOLOGY AND GENOMIC MEDICINE WBC, UA 21-40 (H) 0 - 4 /HPF [facility] DEPARTMENT OF PATHOLOGY AND GENOMIC MEDICINE RBC, UA 61-80 (H) 0 - 2 /HPF [facility] DEPARTMENT OF PATHOLOGY AND GENOMIC MEDICINE Bacteria, UA None seen None seen [facility] DEPARTMENT OF PATHOLOGY AND GENOMIC MEDICINE Yeast, UA None seen [facility] DEPARTMENT OF PATHOLOGY AND GENOMIC MEDICINE Yeast with pseudohyphae, None seen [facility] DEPARTMENT OF UA PATHOLOGY AND GENOMIC MEDICINE Specimen Urine Performing Organization Address City/[facility]/Zipcode Phone Number [address] [place] [address] PATHOLOGY AND GENOMIC MEDICINE * hCG qualitative, urine screen (03/19/2017 12:27 AM) Only the most recent of 2 results within the time period is included. hCG qualitative, urine Negative Negative [facility] DEPARTMENT OF Comment: PATHOLOGY AND The manufacturers stated GENOMIC MEDICINE sensitivity of HcG test for serum is >/=10 mIU/ml and urine is >/=20mIU/ml. Specimen Urine Performing Organization Address City/[facility]/Zipcode Phone Number [address] [place] [address] PATHOLOGY AND GENOMIC MEDICINE * Gram stain (03/19/2017 12:27 AM) Only the most recent of 2 results within the time period is included. Gram stain result No WBC's or organisms seen. [facility] DEPARTMENT OF Comment: PATHOLOGY AND Specimen Information GENOMIC MEDICINE Specimen Source: Urine Specimen Site: See UA Specimen Urine Performing Organization Address City/[facility]/Zipcode Phone Number [facility] DEPARTMENT OF [address] [place] [phone] PATHOLOGY AND GENOMIC MEDICINE * Urine culture (03/19/2017 12:27 AM) Only the most recent of 2 results within the time period is included. Urine culture isolate Gram negative rods [facility] DEPARTMENT OF 10-1 cfu/ml PATHOLOGY AND (A) GENOMIC MEDICINE Comment: Specimen Information Specimen Source: Urine Specimen Site: See UA Urine culture isolate Gram positive villa [facility] DEPARTMENT OF <10-1 cfu/ml PATHOLOGY AND (A) GENOMIC MEDICINE Specimen Urine Performing Organization Address City/State/Zipcode Phone Number [facility] DEPARTMENT OF [address] [place] [phone] PATHOLOGY AND GENOMIC MEDICINE * Estimated GFR (03/18/2017 10:50 PM) Only the most recent of 2 results within the time period is included. GFR Non Af Amer 80 mL/min/1.73 m2 [facility] DEPARTMENT OF PATHOLOGY AND GENOMIC MEDICINE GFR Af Amer >90 mL/min/1.73 m2 [facility] DEPARTMENT OF Comment: PATHOLOGY AND Chronic kidney disease: <60 GENOMIC MEDICINE mL/min/1.73m2 Kidney failure: <15 mL/min/1.73m2 The estimated GFR is calculated from the IDMS-traceable Modification of Diet in Renal Disease Equation. The accuracy of the calculation is poor when the creatinine is normal. Calculated values >90 mL/min/1.73m2 are not reported. This equation has not been validated in children (<18 years), women, the elderly (>70 years), or ethnic groups other than Caucasians and Americans. Specimen Plasma specimen Performing Organization Address City/State/Zipcode Phone Number [facility] [place] [address] [place] [address] PATHOLOGY AND [employer] MEDICINE * CBC with platelet and differential (03/18/2017 10:50 PM) Only the most recent of 2 results within the time period is included. WBC 7.59 4.50 - 11.00 k/uL [facility] DEPARTMENT OF PATHOLOGY AND GENOMIC MEDICINE RBC 4.73 4.20 - 5.50 m/uL [facility] PATHOLOGY AND GENOMIC MEDICINE HGB 13.9 12.0 - 16.0 g/dL [facility] DEPARTMENT PATHOLOGY AND GENOMIC MEDICINE HCT 42.5 37.0 - 47.0 % [facility] DEPARTMENT OF PATHOLOGY AND GENOMIC MEDICINE MCV 89.9 82.0 - 100.0 fL [facility] DEPARTMENT OF PATHOLOGY AND GENOMIC MEDICINE MCH 29.4 27.0 - 34.0 pg [facility] DEPARTMENT OF PATHOLOGY AND GENOMIC MEDICINE MCHC 32.7 31.0 - 37.0 g/dL [facility] DEPARTMENT OF PATHOLOGY AND GENOMIC MEDICINE RDW - SD 41.1 37.0 - 55.0 fL [facility] DEPARTMENT OF PATHOLOGY AND GENOMIC MEDICINE MPV 10.2 8.8 - 13.2 fL [facility] DEPARTMENT OF PATHOLOGY AND GENOMIC MEDICINE Platelet count 249 150 - 400 k/uL [facility] DEPARTMENT OF PATHOLOGY AND GENOMIC MEDICINE Nucleated RBC 0.00 /100 WBC [facility] DEPARTMENT OF PATHOLOGY AND GENOMIC MEDICINE Neutrophils 54.3 39.0 - 69.0 % [facility] DEPARTMENT OF PATHOLOGY AND GENOMIC MEDICINE Lymphocytes 37.0 25.0 - 45.0 % [facility] DEPARTMENT OF PATHOLOGY AND GENOMIC MEDICINE Monocytes 5.8 0.0 - 10.0 % [facility] DEPARTMENT OF PATHOLOGY AND GENOMIC MEDICINE Eosinophils 2.4 0.0 - 5.0 % [facility] DEPARTMENT OF PATHOLOGY AND GENOMIC MEDICINE Basophils 0.4 0.0 - 1.0 % [facility] DEPARTMENT OF PATHOLOGY AND GENOMIC MEDICINE Immature granulocytes 0.1Comment: "Immature 0.0 - 1.0 % [facility] DEPARTMENT OF granulocytes" (promyelocytes, PATHOLOGY AND myelocytes, metamyelocytes) [facility] Specimen Blood Performing Organization Address City/State/Zipcode Phone Number [facility] [place] [address] [place] [address] PATHOLOGY AND GENOMIC MEDICINE * Comprehensive metabolic panel (03/18/2017 10:50 PM) Only the most recent of 2 results within the time period is included. Sodium 140 135 - 148 mEq/L [facility] DEPARTMENT OF PATHOLOGY AND GENOMIC MEDICINE Potassium 4.3 3.5 - 5.0 mEq/L [facility] DEPARTMENT OF PATHOLOGY AND GENOMIC MEDICINE Chloride 99 98 - 112 mEq/L [facility] DEPARTMENT OF PATHOLOGY AND GENOMIC MEDICINE CO2 31 24 - 31 mEq/L [facility] DEPARTMENT OF PATHOLOGY AND GENOMIC MEDICINE Anion gap 10 7 - 15 mEq/L [facility] DEPARTMENT OF Comment: PATHOLOGY AND Starting from June [facility] , anion gap calculation no longer incorporates potassium. Please note the change. BUN 13 6 - 20 mg/dL [facility] DEPARTMENT OF PATHOLOGY AND GENOMIC MEDICINE Creatinine 0.8 0.5 - 0.9 mg/dL [facility] DEPARTMENT OF PATHOLOGY AND GENOMIC MEDICINE Glucose 116 (H) 65 - 99 mg/dL [facility] DEPARTMENT OF PATHOLOGY AND GENOMIC MEDICINE Calcium 9.3 8.3 - 10.2 mg/dL [facility] DEPARTMENT OF PATHOLOGY AND GENOMIC MEDICINE Protein 7.2 6.3 - 8.3 g/dL [facility] DEPARTMENT OF Comment: PATHOLOGY AND [facility] MEDICINE 4.6-7.0 g/dL 1 week 4.4-7.6 g/dL 7 months-1year 5.1-7.3 g/dL 1-2 years5.6-7 .5 g/dL >3 years6.0-8 .0 g/dL 18-150 6.3-8.3 g/dL Albumin 4.0 3.5 - 5.0 g/dL [facility] DEPARTMENT OF PATHOLOGY AND GENOMIC MEDICINE A/G ratio 1.2 0.7 - 3.8 [facility] DEPARTMENT OF PATHOLOGY AND GENOMIC MEDICINE Alkaline phosphatase 59 35 - 104 U/L [facility] DEPARTMENT OF PATHOLOGY AND GENOMIC MEDICINE AST 19 10 - 35 U/L [facility] DEPARTMENT OF PATHOLOGY AND GENOMIC MEDICINE ALT 15 5 - 50 U/L [facility] DEPARTMENT OF PATHOLOGY AND GENOMIC MEDICINE Total bilirubin 0.2 0.0 - 1.2 mg/dL [facility] OF PATHOLOGY AND GENOMIC MEDICINE Specimen Plasma specimen Performing Organization Address City/State/Zipcode Phone Number [facility] [address] [place] [address] PATHOLOGY AND GENOMIC MEDICINE * CT Renal Stone Protocol (03/16/2017 1:21 PM) Narrative Performed At EXAMINATION:CT RENAL STONE PROTOCOL RADIANT CLINICAL HISTORY:Flank Pain TECHNIQUE: Multiple axial images of the abdomen and pelvis were obtained without intravenous administration of iodinated contrast. Sagittal and coronal computerized reformatted images were also obtained. The lack of intravenous contrast reduces the sensitivity of detecting solid organ disease. CT scans are performed using radiation dose reduction techniques. Technical factors are evaluated and adjusted to ensure appropriate moderation of exposure. Automated dose management technology is applied to adjust radiation exposure while achieving a diagnostic quality image. COMPARISON:02/28/2010 FINDINGS: There is a 3-4 mm calculus in the distal left ureter just above the ureterovesicular junction. There is no significant hydroureter or hydronephrosis. Multiple calculi are present throughout the left kidney, the largest in the lower pole measuring 3-4 mm. In the right kidney, there is a single punctate calculus in the mid to lower pole. The unenhanced spleen, adrenal glands, pancreas, gallbladder, and liver are normal. Abdominal aorta is normal in caliber. 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 The appendix is normal. There are no inflammatory changes around the large or small bowel. There is no pelvic mass or pelvic lymphadenopathy. The patient has undergone hysterectomy. There is some volume loss in the lung bases. Osseous structures are intact. Bone islands are present in the right ilium. IMPRESSION: A 3-4 mm calculus in the distal left ureter, just proximal to the ureterovesicular junction is present. No significant hydroureter or hydronephrosis is seen. [id number] Procedure Note Interface, Radiology Results Incoming - 03/16/2017 1:32 PM [employer] EXAMINATION: CT RENAL STONE PROTOCOL CLINICAL HISTORY: Flank Pain TECHNIQUE: Multiple axial images of the abdomen and pelvis were obtained without intravenous administration of iodinated contrast. Sagittal and coronal computerized reformatted images were also obtained. The lack of intravenous contrast reduces the sensitivity of detecting solid organ disease. CT scans are performed using radiation dose reduction techniques. Technical factors are evaluated and adjusted to ensure appropriate moderation of exposure. Automated dose management technology is applied to adjust radiation exposure while achieving a diagnostic quality image. COMPARISON: 02/28/2010 FINDINGS: There is a 3-4 mm calculus in the distal left ureter just above the ureterovesicular junction. There is no significant hydroureter or hydronephrosis. Multiple calculi are present throughout the left kidney, the largest in the lower pole measuring 3-4 mm. In the right kidney, there is a single punctate calculus in the mid to lower pole. The unenhanced spleen, adrenal glands, pancreas, gallbladder, and liver are normal. Abdominal aorta is normal in caliber. 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 The appendix is normal. There are no inflammatory changes around the large or small bowel. There is no pelvic mass or pelvic lymphadenopathy. The patient has undergone hysterectomy. There is some volume loss in the lung bases. Osseous structures are intact. Bone islands are present in the right ilium. IMPRESSION: A 3-4 mm calculus in the distal left ureter, just proximal to the ureterovesicular junction is present. No significant hydroureter or hydronephrosis is seen. [id number] Performing Organization Address City/State/Zipcode Phone Number [facility] [address] [place] [address] after 02/03/2017 Insurance Payer Benefit Subscriber ID Type Phone Address Plan / Group [employer] C[employer] OPEN xxxxxxxxx O ACCESS/NET WORK Home:
[2018-02-04] MEDS ORDERED: KETOROLAC TROMETHAMINE 30 MG/ML VIAL IV STA (13:48)
[2018-02-04] MEDS ORDERED: MORPHINE SULFATE 5 MG/ML VIAL IV ONE (14:00)
[2018-02-04] MEDS ORDERED: SODIUM CHLORIDE 0.9% 1000ML 1,000 ML IV ONE (14:00)
[2018-02-04] MEDS ORDERED: HYOSCYAMINE SULFATE 0.5 MG/ML INJ IV ONE (14:00)
[2018-02-04 14:10] LABS: CLARITY,URINE SL CLOUDY (CLEAR); COLOR,URINE YELLOW (YELLOW)
[2018-02-04 14:11] LABS: BILIRUBIN,URINE NEGATIVE (NEGATIVE); KETONES,URINE NEGATIVE (NEGATIVE); LEUKOCYTE ESTERASE ,URINE NEGATIVE (NEGATIVE); NITRITE,URINE NEGATIVE (NEGATIVE); PROTEIN,URINE DIPSTICK NEGATIVE (NEGATIVE); URINE UROBILINOGEN 0.2 mg/dL (0.2 - 1)
[2018-02-04] MEDS ORDERED: MORPHINE SULFATE INJ 4 MG/ML INJ IV NR (14:15)
[2018-02-04 14:24] LABS: EPITHELIAL CELLS,URINE FEW /LPF
[2018-02-04] MEDS ORDERED: KETOROLAC TROMETHAMINE 30 MG/ML VIAL IV PRN (14:45)
[2018-02-04] MEDS ORDERED: HYDROMORPHONE 1MG/1ML INJ SC PRN (14:45)
[2018-02-04] MEDS ORDERED: SODIUM CHLORIDE FLUSH 10 ML SYR INJ PRN (14:45)
[2018-02-04] MEDS ORDERED: MORPHINE SULFATE 5 MG/ML VIAL IV PRN (14:45)
[2018-02-04] MEDS ORDERED: HYOSCYAMINE SULFATE 0.5 MG/ML INJ IV PRN (14:45)
[2018-02-04] MEDS ORDERED: HYDROMORPHONE 2MG/ML 2 MG/ML ML IV PRN (15:15)
[2018-02-04 15:30] LABS: BASOPHILS % 0.1 % (0.0-1.0); HEMATOCRIT 41.9 % (34.2-44.1); LYMPHOCYTES # (AUTO) 0.4 (1.0-3.2); LYMPHOCYTES % 2.2 % (18.0-39.1); MEAN CORPUSCULAR HEMOGLOBIN 31.2 pg (28-32); MEAN CORPUSCULAR HGB CONC 33.4 g/dL (31-35); MEAN CORPUSCULAR VOLUME 93.3 fL (81-99); MONOCYTES # (AUTO) 0.6 (0.2-0.8); MONOCYTES % 3.5 % (4.4-11.3); NEUTROPHILS # (AUTO) 16.3 (2.1-6.9); NEUTROPHILS % 93.7 % (38.7-80.0); PLATELET COUNT 269 x10e3/uL (140-360); RED BLOOD COUNT 4.49 x10e6/uL (3.6-5.1); RED CELL DISTRIBUTION WIDTH 12.6 % (11.7-14.4)
[2018-02-04 15:48] LABS: ALANINE AMINOTRANSFERASE 21 IU/L (0-55); ALBUMIN 3.6 g/dL (3.5-5.0); ALKALINE PHOSPHATASE 57 IU/L (40-150); ANION GAP 13.9 mmol/L (8-16); BLOOD UREA NITROGEN 12 mg/dL (7-26); BUN/CREATININE RATIO 14 (6-25); CALCIUM 9.5 mg/dL (8.4-10.2); CARBON DIOXIDE 25 mmol/L (22-29); CHLORIDE 101 mmol/L (98-107); CREATININE, SERUM 0.86 mg/dL (0.57-1.11); EST GLOMERULAR FILTRATION RATE > 60 ML/MIN (60-); GLUCOSE 158 mg/dL (74-118); POTASSIUM 3.9 mmol/L (3.5-5.1); SODIUM 136 mmol/L (136-145)
--- OUTSIDE RECORDS SUMMARY | 2018-02-04 16:22 | XMS REPORT | Clinical Summary ---
Author Author [facility] Organization [facility] Address Unknown Phone Unavailable Care Team Providers Care Hoist Operator Name Role Phone J Carlos Boland MD [...] Taken Blood Pressure 152/65 03/19/2017 1:54 AM ASSISTANT LIBRARIAN Pulse 59 03/19/2017 1:54 AM ASSISTANT LIBRARIAN Temperature 36.7 C (98.1 F) 03/18/2017 6:22 PM ASSISTANT LIBRARIAN Respiratory Rate 20 03/18/2017 6:22 PM ASSISTANT LIBRARIAN Oxygen Saturation 100% 03/19/2017 1:54 AM ASSISTANT LIBRARIAN Inhaled Oxygen - - Concentration Weight - - Height 160 cm (5' 3") 03/16/2017 11:49 AM ASSISTANT LIBRARIAN Body Mass Index - - Plan of Treatment Health Maintenance Due Date Last Done Comments CERVICAL CANCER SCREENING 06/29/2000 INFLUENZA VACCINE 10/30/2017 Procedures Procedure Name Priority Date/Time Associated Diagnosis Comments HCG QUALITATIVE, URINE Routine 03/19/2017 Results for this SCREEN 12:27 AM ASSISTANT LIBRARIAN procedure are in the results section. URINALYSIS SCREEN AND Routine 03/19/2017 Results for this MICROSCOPY, WITH REFLEX 12:27 AM ASSISTANT LIBRARIAN procedure are in the TO CULTURE results section. URINE CULTURE Routine 03/19/2017 Results for this 12:27 AM ASSISTANT LIBRARIAN procedure are in the results section. GRAM STAIN Routine 03/19/2017 Results for this 12:27 AM ASSISTANT LIBRARIAN procedure are in the results section. ZZESTIMATED GFR STAT 03/18/2017 Results for this 10:50 PM ASSISTANT LIBRARIAN procedure are in the results section. COMPREHENSIVE METABOLIC STAT 03/18/2017 Results for this PANEL 10:50 PM ASSISTANT LIBRARIAN procedure are in the results section. HC COMPLETE BLD COUNT STAT 03/18/2017 Results for this W/AUTO DIFF 10:50 PM ASSISTANT LIBRARIAN procedure are in the results section. CT RENAL STONE PROTOCOL STAT 03/16/2017 Results for this 1:21 PM ASSISTANT LIBRARIAN procedure are in the results section. ZZESTIMATED GFR STAT 03/16/2017 Results for this 12:25 PM ASSISTANT LIBRARIAN procedure are in the results section. COMPREHENSIVE METABOLIC STAT 03/16/2017 Results for this PANEL 12:25 PM ASSISTANT LIBRARIAN procedure are in the results section. HC COMPLETE BLD COUNT STAT 03/16/2017 Results for this W/AUTO DIFF 12:25 PM ASSISTANT LIBRARIAN procedure are in the results section. HCG QUALITATIVE, URINE Routine 03/16/2017 Results for this SCREEN 12:25 PM ASSISTANT LIBRARIAN procedure are in the results section. URINALYSIS SCREEN AND Routine 03/16/2017 Results for this MICROSCOPY, WITH REFLEX 12:25 PM ASSISTANT LIBRARIAN procedure are in the TO CULTURE results section. GRAM STAIN Routine 03/16/2017 Results for this 12:25 PM ASSISTANT LIBRARIAN procedure are in the results section. URINE CULTURE Routine 03/16/2017 Results for this 12:25 PM ASSISTANT LIBRARIAN procedure are in the results section. after 02/03/2017 Results * Urinalysis screen and microscopy, with reflex to culture (03/19/2017 12:27 AM) Only the most recent of 2 results within the time period is included. Specimen site Clean catch [facility] DEPARTMENT OF PATHOLOGY AND GENOMIC MEDICINE Color, UA Yellow [facility] DEPARTMENT OF PATHOLOGY AND GENOMIC MEDICINE Appearance, UA Slightly-Cloudy [facility] DEPARTMENT OF PATHOLOGY AND GENOMIC MEDICINE Specific gravity, UA 1.016 1.001 - 1.035 [facility] DEPARTMENT OF PATHOLOGY AND GENOMIC MEDICINE pH, UA 5.0 5.0 - 8.5 [facility] DEPARTMENT OF PATHOLOGY AND GENOMIC MEDICINE Protein, UA Negative Negative [facility] DEPARTMENT OF PATHOLOGY AND GENOMIC MEDICINE Glucose, UA Negative Negative [facility] DEPARTMENT OF PATHOLOGY AND GENOMIC MEDICINE Ketones, UA Negative Negative [facility] DEPARTMENT OF PATHOLOGY AND GENOMIC MEDICINE Bilirubin, UA Negative Negative [facility] DEPARTMENT OF PATHOLOGY AND GENOMIC MEDICINE Blood, UA Large (A) Negative [facility] DEPARTMENT OF PATHOLOGY AND GENOMIC MEDICINE Nitrite, UA Negative Negative [facility] DEPARTMENT OF PATHOLOGY AND GENOMIC MEDICINE Urobilinogen, UA Negative <2.0 [facility] DEPARTMENT OF PATHOLOGY AND GENOMIC MEDICINE Leukocyte esterase, UA Negative Negative [facility] DEPARTMENT OF PATHOLOGY AND GENOMIC MEDICINE Epithelial cells, UA Moderate /HPF [facility] DEPARTMENT OF PATHOLOGY AND GENOMIC MEDICINE WBC, UA 21-40 (H) 0 - 4 /HPF [facility] DEPARTMENT OF PATHOLOGY AND GENOMIC MEDICINE RBC, UA 61-80 (H) 0 - 2 /HPF [facility] DEPARTMENT OF PATHOLOGY AND GENOMIC MEDICINE Bacteria, UA None seen None seen [facility] DEPARTMENT OF PATHOLOGY AND GENOMIC MEDICINE Yeast, UA None seen [facility] DEPARTMENT OF PATHOLOGY AND GENOMIC MEDICINE Yeast with pseudohyphae, None seen [facility] DEPARTMENT OF UA PATHOLOGY AND GENOMIC MEDICINE Specimen Urine Performing Organization Address City/[facility]/Zipcode Phone Number [address] [place] [address] PATHOLOGY AND GENOMIC MEDICINE * hCG qualitative, urine screen (03/19/2017 12:27 AM) Only the most recent of 2 results within the time period is included. hCG qualitative, urine Negative Negative [facility] DEPARTMENT OF Comment: PATHOLOGY AND The manufacturers stated GENOMIC MEDICINE sensitivity of HcG test for serum is >/=10 mIU/ml and urine is >/=20mIU/ml. Specimen Urine Performing Organization Address City/[facility]/Zipcode Phone Number [address] [place] [address] PATHOLOGY AND GENOMIC MEDICINE * Gram stain (03/19/2017 12:27 AM) Only the most recent of 2 results within the time period is included. Gram stain result No WBC's or organisms seen. [facility] DEPARTMENT OF Comment: PATHOLOGY AND Specimen Information GENOMIC MEDICINE Specimen Source: Urine Specimen Site: See UA Specimen Urine Performing Organization Address City/[facility]/Zipcode Phone Number [facility] DEPARTMENT OF [address] [place] [phone] PATHOLOGY AND GENOMIC MEDICINE * Urine culture (03/19/2017 12:27 AM) Only the most recent of 2 results within the time period is included. Urine culture isolate Gram negative rods [facility] DEPARTMENT OF 10-1 cfu/ml PATHOLOGY AND (A) GENOMIC MEDICINE Comment: Specimen Information Specimen Source: Urine Specimen Site: See UA Urine culture isolate Gram positive villa [facility] DEPARTMENT OF <10-1 cfu/ml PATHOLOGY AND (A) GENOMIC MEDICINE Specimen Urine Performing Organization Address City/State/Zipcode Phone Number [facility] DEPARTMENT OF [address] [place] [id number] PATHOLOGY AND GENOMIC MEDICINE * Estimated GFR (03/18/2017 10:50 PM) Only the most recent of 2 results within the time period is included. GFR Non Af Amer 80 mL/min/1.73 m2 [facility] DEPARTMENT OF PATHOLOGY AND GENOMIC MEDICINE GFR Af Amer >90 mL/min/1.73 m2 [facility] DEPARTMENT OF Comment: PATHOLOGY AND [...] specimen Performing Organization Address City/State/Zipcode Phone Number [facility] [place] [address] [place] [address] PATHOLOGY AND [facility] MEDICINE * CBC with platelet and differential (03/18/2017 10:50 PM) Only the most recent of 2 results within the time period is included. WBC 7.59 4.50 - 11.00 k/uL [facility] DEPARTMENT OF PATHOLOGY AND GENOMIC MEDICINE RBC 4.73 4.20 - 5.50 m/uL [facility] PATHOLOGY AND GENOMIC MEDICINE HGB 13.9 12.0 - 16.0 g/dL [facility] DEPARTMENT PATHOLOGY AND GENOMIC MEDICINE HCT 42.5 37.0 - 47.0 % [facility] DEPARTMENT OF PATHOLOGY AND GENOMIC MEDICINE MCV 89.9 82.0 - 100.0 fL [facility] DEPARTMENT OF PATHOLOGY AND GENOMIC MEDICINE MCH 29.4 27.0 - 34.0 pg [facility] DEPARTMENT OF PATHOLOGY AND GENOMIC MEDICINE MCHC 32.7 31.0 - 37.0 g/dL [facility] DEPARTMENT OF PATHOLOGY AND GENOMIC MEDICINE RDW - SD 41.1 37.0 - 55.0 fL [facility] DEPARTMENT OF PATHOLOGY AND GENOMIC MEDICINE MPV 10.2 8.8 - 13.2 fL [facility] DEPARTMENT OF PATHOLOGY AND GENOMIC MEDICINE Platelet count 249 150 - 400 k/uL [facility] DEPARTMENT OF PATHOLOGY AND GENOMIC MEDICINE Nucleated RBC 0.00 /100 WBC [facility] DEPARTMENT OF PATHOLOGY AND GENOMIC MEDICINE Neutrophils 54.3 39.0 - 69.0 % [facility] DEPARTMENT OF PATHOLOGY AND GENOMIC MEDICINE Lymphocytes 37.0 25.0 - 45.0 % [facility] DEPARTMENT OF PATHOLOGY AND GENOMIC MEDICINE Monocytes 5.8 0.0 - 10.0 % [facility] DEPARTMENT OF PATHOLOGY AND GENOMIC MEDICINE Eosinophils 2.4 0.0 - 5.0 % [facility] DEPARTMENT OF PATHOLOGY AND GENOMIC MEDICINE Basophils 0.4 0.0 - 1.0 % [facility] DEPARTMENT OF PATHOLOGY AND GENOMIC MEDICINE Immature granulocytes 0.1Comment: "Immature 0.0 - 1.0 % [facility] DEPARTMENT OF granulocytes" (promyelocytes, PATHOLOGY AND myelocytes, metamyelocytes) [facility] Specimen Blood Performing Organization Address City/State/Zipcode Phone Number [facility] [place] [address] [place] [address] PATHOLOGY AND GENOMIC MEDICINE * Comprehensive metabolic panel (03/18/2017 10:50 PM) Only the most recent of 2 results within the time period is included. Sodium 140 135 - 148 mEq/L [facility] DEPARTMENT OF PATHOLOGY AND GENOMIC MEDICINE Potassium 4.3 3.5 - 5.0 mEq/L [facility] DEPARTMENT OF PATHOLOGY AND GENOMIC MEDICINE Chloride 99 98 - 112 mEq/L [facility] DEPARTMENT OF PATHOLOGY AND GENOMIC MEDICINE CO2 31 24 - 31 mEq/L [facility] DEPARTMENT OF PATHOLOGY AND GENOMIC MEDICINE Anion gap 10 7 - 15 mEq/L [facility] DEPARTMENT OF Comment: PATHOLOGY AND Starting from June [facility] , anion gap calculation no longer incorporates potassium. Please note the change. BUN 13 6 - 20 mg/dL [facility] DEPARTMENT OF PATHOLOGY AND GENOMIC MEDICINE Creatinine 0.8 0.5 - 0.9 mg/dL [facility] DEPARTMENT OF PATHOLOGY AND GENOMIC MEDICINE Glucose 116 (H) 65 - 99 mg/dL [facility] DEPARTMENT OF PATHOLOGY AND GENOMIC MEDICINE Calcium 9.3 8.3 - 10.2 mg/dL [facility] DEPARTMENT OF PATHOLOGY AND GENOMIC MEDICINE Protein 7.2 6.3 - 8.3 g/dL [facility] DEPARTMENT OF Comment: PATHOLOGY AND [place] [facility] MEDICINE 4.6-7.0 g/dL 1 week 4.4-7.6 g/dL 7 months-1year 5.1-7.3 g/dL 1-2 years5.6-7 .5 g/dL >3 years6.0-8 .0 g/dL 18-150 6.3-8.3 g/dL Albumin 4.0 3.5 - 5.0 g/dL [facility] DEPARTMENT OF PATHOLOGY AND GENOMIC MEDICINE A/G ratio 1.2 0.7 - 3.8 [facility] DEPARTMENT OF PATHOLOGY AND GENOMIC MEDICINE Alkaline phosphatase 59 35 - 104 U/L [facility] DEPARTMENT OF PATHOLOGY AND GENOMIC MEDICINE AST 19 10 - 35 U/L [facility] DEPARTMENT OF PATHOLOGY AND GENOMIC MEDICINE ALT 15 5 - 50 U/L [facility] DEPARTMENT OF PATHOLOGY AND GENOMIC MEDICINE Total bilirubin 0.2 0.0 - 1.2 mg/dL [facility] OF PATHOLOGY AND GENOMIC MEDICINE Specimen Plasma specimen Performing Organization Address City/State/Zipcode Phone Number [facility] [address] [place] [address] PATHOLOGY AND GENOMIC MEDICINE * CT Renal [...] No significant hydroureter or hydronephrosis is seen. [id number] Procedure Note Interface, Radiology Results Incoming - 03/16/2017 1:32 PM ASSISTANT LIBRARIAN EXAMINATION: CT RENAL STONE PROTOCOL CLINICAL HISTORY: [...] No significant hydroureter or hydronephrosis is seen. [id number] Performing Organization Address City/State/Zipcode Phone Number [facility] [address] [place] [address] after 02/03/2017 Insurance Payer Benefit Subscriber ID Type Phone Address Plan / Group [employer] CIGNA OPEN xxxxxxxxx O ACCESS/NET WORK Home:
[2018-02-04 16:44] VITALS: BP 144/67
[2018-02-04] MEDS: SODIUM CHLORIDE 0.9% 1000ML 1,000 ML IV SCH (17:12)
[2018-02-04] MEDS ORDERED: ULTRAM50 MG PO (17:15)
[2018-02-04 18:19] VITALS: BP 144/67
[2018-02-04 18:24] VITALS: BP 144/67
[2018-02-04 20:00] VITALS: BP 115/62
[2018-02-04] MEDS: HYDROMORPHONE 2MG/ML 2 MG/ML ML IV PRN (23:00)
[2018-02-05] VITALS (9 sets, daily range): BP systolic 109–125; BP diastolic 55–76
[2018-02-05] MEDS: SODIUM CHLORIDE 0.9% 1000ML 1,000 ML IV SCH ×2 (03:08→13:24)
[2018-02-05 05:42] LABS: BASOPHILS % 0.1 % (0.0-1.0); HEMATOCRIT 36.8 % (34.2-44.1); LYMPHOCYTES # (AUTO) 0.6 (1.0-3.2); LYMPHOCYTES % 4.2 % (18.0-39.1); MEAN CORPUSCULAR HEMOGLOBIN 30.1 pg (28-32); MEAN CORPUSCULAR HGB CONC 32.1 g/dL (31-35); MEAN CORPUSCULAR VOLUME 93.9 fL (81-99); MONOCYTES # (AUTO) 0.5 (0.2-0.8); MONOCYTES % 3.3 % (4.4-11.3); NEUTROPHILS # (AUTO) 12.9 (2.1-6.9); PLATELET COUNT 219 x10e3/uL (140-360); RED BLOOD COUNT 3.92 x10e6/uL (3.6-5.1); RED CELL DISTRIBUTION WIDTH 12.7 % (11.7-14.4)
[2018-02-05 05:49] LABS: HEMOGLOBIN 11.8 g/dL (12.0-16.0)
[2018-02-05] MEDS: HYDROMORPHONE 2MG/ML 2 MG/ML ML IV PRN ×3 (05:53→19:12)
[2018-02-05 06:18] LABS: ANION GAP 10.8 mmol/L (8-16); BLOOD UREA NITROGEN 13 mg/dL (7-26); BUN/CREATININE RATIO 16 (6-25); CALCIUM 8.7 mg/dL (8.4-10.2); CARBON DIOXIDE 24 mmol/L (22-29); CHLORIDE 103 mmol/L (98-107); EST GLOMERULAR FILTRATION RATE > 60 ML/MIN (60-); GLUCOSE 128 mg/dL (74-118); POTASSIUM 3.8 mmol/L (3.5-5.1); SODIUM 134 mmol/L (136-145)
[2018-02-05] MEDS ORDERED: ACETAMINOPHEN/CODEINE 300MG - 30MG TAB PO PRN (09:45)
[2018-02-05] MEDS ORDERED: OXYBUTYNIN CHLORIDE 5 MG TAB PO PRN (09:45)
[2018-02-05] MEDS ORDERED: CEFTRIAXONE SOD 1 GM/NS 50 ML 50 ML IV SCH (09:45)
[2018-02-05] MEDS: CEFTRIAXONE SOD 1 GM VIAL IV SCH (11:35)
[2018-02-05] MEDS: TRAMADOL HCL 50 MG TAB PO SCH ×2 (13:23→18:09)
[2018-02-05] MEDS: AMPHET ASP PO SCH (17:00)
[2018-02-05] MEDS: D AMPHET PO SCH (17:00)
[2018-02-05] MEDS: AMPHET PO SCH (17:00)
[2018-02-06] VITALS (7 sets, daily range): BP systolic 111–146; BP diastolic 62–81
[2018-02-06] MEDS: TRAMADOL HCL 50 MG TAB PO SCH ×5 (00:02→23:20)
[2018-02-06] MEDS: HYDROMORPHONE 2MG/ML 2 MG/ML ML IV PRN ×3 (03:58→18:15)
[2018-02-06] MEDS: SODIUM CHLORIDE 0.9% 1000ML 1,000 ML IV SCH ×3 (04:28→20:37)
[2018-02-06] MEDS: AMPHET PO SCH ×2 (08:45→17:00)
[2018-02-06] MEDS: AMPHET ASP PO SCH ×2 (08:45→17:00)
[2018-02-06] MEDS: D AMPHET PO SCH ×2 (08:45→17:00)
[2018-02-06] MEDS: CEFTRIAXONE SOD 1 GM VIAL IV SCH (10:06)
[2018-02-07] VITALS (8 sets, daily range): BP systolic 120–140; BP diastolic 59–83
[2018-02-07] MEDS: HYDROMORPHONE 2MG/ML 2 MG/ML ML IV PRN ×3 (04:12→22:30)
[2018-02-07 05:23] LABS: BASOPHILS % 0.2 % (0.0-1.0); EOSINOPHILS # (AUTO) 0.2 (0.0-0.4); HEMOGLOBIN 10.9 g/dL (12.0-16.0); LYMPHOCYTES # (AUTO) 2.1 (1.0-3.2); LYMPHOCYTES % 32.7 % (18.0-39.1); MEAN CORPUSCULAR HEMOGLOBIN 30.6 pg (28-32); MEAN CORPUSCULAR HGB CONC 32.1 g/dL (31-35); MEAN CORPUSCULAR VOLUME 95.5 fL (81-99); MONOCYTES # (AUTO) 0.5 (0.2-0.8); MONOCYTES % 7.8 % (4.4-11.3); NEUTROPHILS # (AUTO) 3.5 (2.1-6.9); NEUTROPHILS % 56.3 % (38.7-80.0); PLATELET COUNT 201 x10e3/uL (140-360); RED BLOOD COUNT 3.56 x10e6/uL (3.6-5.1); RED CELL DISTRIBUTION WIDTH 12.6 % (11.7-14.4)
[2018-02-07 05:47] LABS: ANION GAP 14.9 mmol/L (8-16); BLOOD UREA NITROGEN 7 mg/dL (7-26); BUN/CREATININE RATIO 12 (6-25); CALCIUM 8.7 mg/dL (8.4-10.2); CARBON DIOXIDE 26 mmol/L (22-29); CHLORIDE 104 mmol/L (98-107); EST GLOMERULAR FILTRATION RATE > 60 ML/MIN (60-); GLUCOSE 101 mg/dL (74-118); POTASSIUM 3.9 mmol/L (3.5-5.1); SODIUM 141 mmol/L (136-145)
[2018-02-07] MEDS: TRAMADOL HCL 50 MG TAB PO SCH ×3 (06:29→18:00)
[2018-02-07] MEDS: AMPHET ASP PO SCH ×2 (09:00→17:00)
[2018-02-07] MEDS: D AMPHET PO SCH ×2 (09:00→17:00)
[2018-02-07] MEDS: AMPHET PO SCH ×2 (09:00→17:00)
[2018-02-07] MEDS ORDERED: BISACODYL 5 MG TAB EC PO NR (11:00)
[2018-02-07] MEDS ORDERED: BISACODYL 10 MG SUPP PR NR (11:00)
[2018-02-07] MEDS ORDERED: CITRATE OF MAGNESIA 300ML BOTTLE PO NR (11:00)
[2018-02-07] MEDS: SODIUM CHLORIDE 0.9% 1000ML 1,000 ML IV SCH (11:24)
[2018-02-07] MEDS: CEFTRIAXONE SOD 1 GM VIAL IV SCH (11:25)
[2018-02-07] MEDS: ONDANSETRON HCL 4 MG ORAL DISINTEGRATING TAB PO PRN ×2 (12:05→20:08)
[2018-02-07] MEDS ORDERED: IOPAMIDOL 300MG/ML 100 ML INFUS..BTL IV ONE (17:32)
--- NOTE | 2018-02-07 19:51 | Diagnostic Imaging Report ---
EXAM: INTRAVENOUS PYELOGRAM (IVP) INDICATION: Renal stone/pain on the left COMPARISON: CT of the abdomen and pelvis without IV contrast December 17, 2017 TECHNIQUE: A dermatology procedural physician radiograph of the abdomen was obtained. 100cc of Isovue 300 were administered intravenously and multiple sequential images of the abdomen were obtained. FINDINGS: Residential Door Unit Installer abdominal radiograph: Nonobstructive bowel gas pattern. There is a cluster of small stones measuring up to 6 mm projected over the left renal shadow. Sclerotic densities in the right hip and left femur are most likely bone islands. KIDNEYS: Prompt symmetric enhancement of the renal parenchyma. Mild delayed excretion of contrast from the left kidney compared to the right. The left kidney is enlarged compared to the right. There is mild left hydroureteronephrosis. The left ureter is opacified through its entire course. There is a cluster of small stones measuring up to 6 mm projected over the left renal shadow. Normal appearance of the right kidney. URETERS: Mild left hydroureter. No filling defects identified. Normal right ureter. BLADDER: Normal bladder contour. Mild post void residual. IMPRESSION: There is mild left hydroureteronephrosis. A ureteral stone is not identified. There is a small cluster of stones projected over the left kidney on dermatology procedural physician view. The left renal shadow is enlarged compared to the right and after the administration of contrast there is mild delayed excretion of contrast and a thin curvilinear contrast collection along the medial aspect of the kidney, which could represent subcapsular urine/contrast. These findings could be better evaluated by CT. Signed by: Dr. Le Oconnor M.D. on 02/07/2018 7:48 PM
[2018-02-08] VITALS (7 sets, daily range): BP systolic 95–147; BP diastolic 56–79
[2018-02-08] MEDS: TRAMADOL HCL 50 MG TAB PO SCH ×4 (00:21→17:59)
[2018-02-08] MEDS: SODIUM CHLORIDE 0.9% 1000ML 1,000 ML IV SCH (03:38)
[2018-02-08] MEDS: HYDROMORPHONE 2MG/ML 2 MG/ML ML IV PRN ×3 (05:34→22:49)
[2018-02-08] MEDS: D AMPHET PO SCH ×2 (09:00→17:00)
[2018-02-08] MEDS: AMPHET PO SCH ×2 (09:00→17:00)
[2018-02-08] MEDS: AMPHET ASP PO SCH ×2 (09:00→17:00)
[2018-02-08] MEDS: CEFTRIAXONE SOD 1 GM VIAL IV SCH (11:43)
[2018-02-09] VITALS (8 sets, daily range): BP systolic 115–141; BP diastolic 61–94
[2018-02-09] MEDS: TRAMADOL HCL 50 MG TAB PO SCH ×5 (00:29→23:40)
[2018-02-09] MEDS: SODIUM CHLORIDE 0.9% 1000ML 1,000 ML IV SCH ×2 (05:15→18:25)
[2018-02-09] MEDS: AMPHET PO SCH ×2 (09:00→16:39)
[2018-02-09] MEDS: AMPHET ASP PO SCH ×2 (09:00→16:39)
[2018-02-09] MEDS: D AMPHET PO SCH ×2 (09:00→16:39)
[2018-02-09] MEDS: HYDROMORPHONE 2MG/ML 2 MG/ML ML IV PRN ×3 (10:43→20:58)
[2018-02-09] MEDS: CEFTRIAXONE SOD 1 GM VIAL IV SCH (12:05)
[2018-02-09] MEDS ORDERED: MAGNESIUM HYDROXIDE 30 ML UDC PO PRN (13:00)
[2018-02-09] MEDS ORDERED: KETOROLAC TROMETHAMINE 30 MG/ML VIAL IV PRN (13:00)
[2018-02-09] MEDS ORDERED: HYDROMORPHONE 2MG/ML 2 MG/ML ML IV PRN (13:00)
[2018-02-09] MEDS: SENNOSIDES 8.6 MG TAB PO SCH ×2 (13:00→17:40)
[2018-02-10] VITALS: BP 119/62
[2018-02-10] MEDS: HYDROMORPHONE 2MG/ML 2 MG/ML ML IV PRN ×5 (01:30→22:25)
[2018-02-10 04:00] VITALS: BP 129/74
[2018-02-10 05:15] LABS: BASOPHILS % 0.4 % (0.0-1.0); EOSINOPHILS # (AUTO) 0.3 (0.0-0.4); EOSINOPHILS % 4.2 % (0.0-6.0); HEMOGLOBIN 12.7 g/dL (12.0-16.0); LYMPHOCYTES # (AUTO) 2.8 (1.0-3.2); LYMPHOCYTES % 35.6 % (18.0-39.1); MEAN CORPUSCULAR HEMOGLOBIN 30.2 pg (28-32); MEAN CORPUSCULAR HGB CONC 32.6 g/dL (31-35); MEAN CORPUSCULAR VOLUME 92.6 fL (81-99); MONOCYTES # (AUTO) 0.5 (0.2-0.8); MONOCYTES % 6.5 % (4.4-11.3); NEUTROPHILS # (AUTO) 4.2 (2.1-6.9); PLATELET COUNT 293 x10e3/uL (140-360); RED BLOOD COUNT 4.21 x10e6/uL (3.6-5.1)
[2018-02-10] MEDS: SODIUM CHLORIDE 0.9% 1000ML 1,000 ML IV SCH ×2 (05:17→17:53)
[2018-02-10] MEDS: TRAMADOL HCL 50 MG TAB PO SCH ×3 (05:18→17:53)
[2018-02-10 05:40] LABS: ANION GAP 11.3 mmol/L (8-16); BLOOD UREA NITROGEN 9 mg/dL (7-26); BUN/CREATININE RATIO 13 (6-25); CALCIUM 9.3 mg/dL (8.4-10.2); CARBON DIOXIDE 30 mmol/L (22-29); CHLORIDE 100 mmol/L (98-107); CREATININE, SERUM 0.71 mg/dL (0.57-1.11); EST GLOMERULAR FILTRATION RATE > 60 ML/MIN (60-); GLUCOSE 97 mg/dL (74-118); POTASSIUM 4.3 mmol/L (3.5-5.1); SODIUM 137 mmol/L (136-145)
[2018-02-10 07:45] VITALS: BP 123/64
[2018-02-10] MEDS: AMPHET PO SCH ×2 (09:00→16:37)
[2018-02-10] MEDS: D AMPHET PO SCH ×2 (09:00→16:37)
[2018-02-10] MEDS: AMPHET ASP PO SCH ×2 (09:00→16:37)
[2018-02-10 09:18] VITALS: BP 123/64
[2018-02-10] MEDS: SENNOSIDES 8.6 MG TAB PO SCH ×2 (09:34→17:53)
[2018-02-10] MEDS ORDERED: FENTANYL 25 MCG/HR PATCH TOP SCH (10:00)
[2018-02-10] MEDS: CEFTRIAXONE SOD 1 GM VIAL IV SCH (10:06)
[2018-02-10 13:17] VITALS: BP 119/61
[2018-02-10] MEDS: HYDROCODONE/APAP 10MG-325MG TAB PO PRN (19:50)
[2018-02-10 20:31] VITALS: BP 138/65
[2018-02-11] MEDS: TRAMADOL HCL 50 MG TAB PO SCH ×5 (00:27→23:51)
[2018-02-11 00:51] VITALS: BP 118/57
[2018-02-11] MEDS: HYDROCODONE/APAP 10MG-325MG TAB PO PRN (04:56)
[2018-02-11 06:40] VITALS: BP 142/71
[2018-02-11] MEDS: HYDROMORPHONE 2MG/ML 2 MG/ML ML IV PRN ×2 (07:13→17:07)
[2018-02-11] MEDS: D AMPHET PO SCH ×2 (08:18→17:00)
[2018-02-11] MEDS: SENNOSIDES 8.6 MG TAB PO SCH ×2 (08:18→17:07)
[2018-02-11] MEDS: SODIUM CHLORIDE 0.9% 1000ML 1,000 ML IV SCH (08:18)
[2018-02-11] MEDS: AMPHET ASP PO SCH ×2 (08:18→17:00)
[2018-02-11] MEDS: AMPHET PO SCH ×2 (08:18→17:00)
[2018-02-11] MEDS: ONDANSETRON HCL 4 MG ORAL DISINTEGRATING TAB PO PRN ×2 (09:21→14:20)
[2018-02-11 11:49] VITALS: BP 121/73
[2018-02-11] MEDS: CEFTRIAXONE SOD 1 GM VIAL IV SCH (12:26)
[2018-02-11 16:39] VITALS: BP 152/73
[2018-02-11 20:17] VITALS: BP 139/74
[2018-02-12 00:34] VITALS: BP 109/56
[2018-02-12] MEDS: TRAMADOL HCL 50 MG TAB PO SCH (05:30)
[2018-02-12 05:58] VITALS: BP 129/66
[2018-02-12 08:00] VITALS: BP 114/65
[2018-02-12] MEDS: AMPHET PO SCH (08:10)
[2018-02-12] MEDS: AMPHET ASP PO SCH (08:10)
[2018-02-12] MEDS: D AMPHET PO SCH (08:10)
[2018-02-12 08:49] VITALS: BP 114/65
[2018-02-12] MEDS: SENNOSIDES 8.6 MG TAB PO SCH (08:49)
[2018-02-12 11:40] VITALS: BP 132/71
[2018-02-12 12:00] VITALS: BP 132/71
--- NOTE | 2018-02-12 15:48 | Discharge Summary ---
PRIMARY CARE PHYSICIAN: Dr. J Carlos III. CONSULTANTS: Dr. Daniels and Dr. Pablo Alexandra. FINAL DIAGNOSES: 1. Status post left ureteral stent removal associated with intractable pain. Postoperative care. 2. Left ureter narrowing, inflammation but no gross obstruction. 3. Hematuria and urinary tract infection, resolved. SUMMARY: A 37-year-old female who came in complaining of pain, nausea vomiting post left ureteral stent removal. Patient with intractable pain apparent with her blood pressure elevation and heart rate and nausea and vomiting. Patient did have increasing WBC as well on admission. Her WBC was 14,000. The patient was placed on antibiotics. Urine culture is reliable because the patient was started on antibiotics prior to her procedures. Patient was admitted to the hospital for treatment. She continued with Rocephin IV along with IV pain medication, Dilaudid, and oral medication along with nausea vomiting. The IVP showed mild left hydroureteronephrosis with a post left ureteral stent removal. Multiple options were given to the patient regarding the left hydroureteronephrosis by her urologist, Dr. Pablo Alexandra who removed the left urethral stent. Patient would like to wait. At this time, she is stable. Pain control with Dr. Daniels on the case to help manage her pain. Instructions for the patient to follow with Dr. Daniels as an outpatient. She will follow with Dr. Pablo Alexandra per his instructions within 1 week. Patient is stable for discharge home today. Resume home medications and pain control as an outpatient. Job#: [id number]
--- NOTE | 2018-03-31 13:11 | Consultation ---
DATE OF CONSULTATION: February 05, 2018 PAIN MANAGEMENT CONSULTATION REASON FOR CONSULTATION: Pain management. HISTORY OF PRESENT ILLNESS: This patient with multiple issues, ongoing pain, abdominal pain, cramps, back pain, and left flank pain. Started having pain after she underwent a procedure by Dr. Alexandra, and having pain getting worse, which has been constant pain. Pain is moderate, colicky, constant abdominal pain, ongoing pain not responding to pain medication. Pain mostly on the left side of the abdomen and the lower quadrant. She also has low back pain in the past. She has left-sided lower back pain as well. No pelvic problem. No abdominal pain. No urinary frequency. No urgency. She has some hematuria. Not sexually active, and does not have any control. Does not have any . Received care in the past. Pain is 2-10/10 on the scale with 10 being worse. Pain is constant, dull, sharp, and burning pain. REVIEW OF SYSTEMS: The patient has some nausea, vomiting and diarrhea. No black stool, headache or fever. No fever or chills. No nausea. HEART: S1 and S2. HEENT: No sore throat, cough. No difficulty breathing, chest pain. ABDOMEN: No abdominal pain. No joint pains. All systems reviewed are negative. PAST MEDICAL HISTORY: Kidney stones, ureteral stones, ureteral infection, morbid obesity, non-treatable left flank pain. MEDICATIONS: See MAR. Reviewed. ALLERGIES: THERE ARE NO KNOWN DRUG ALLERGIES. SOCIAL HISTORY: Nothing contributory. PHYSICAL EXAMINATION GENERAL: Pain but not in acute distress. VITAL SIGNS: Within normal limits. HEENT: Normocephalic. NECK: Supple. LUNGS: Air entry bilaterally. HEART: Regular rate and rhythm. ABDOMEN: Obese, soft. Some tenderness in the left flank area. EXTREMITIES: No edema. LABORATORY DATA: Noted. ASSESSMENT AND PLAN: The patient with multiple issues, ongoing pain, chronic pain syndrome, chronic back pain, colicky pain. Will continue supportive care while she is inpatient. Job#: [id number] MD
== END 2018-02-12 12:00 | disposition home or self-care (01) | DRG 948 ==
LOC: ER 13:25 → ERHOLD 14:36 → IMCU 16:26 → OBSVTOIN 02-05 12:49 → MED/SURG2 02-05 18:37
PROVIDERS: ADMIT Internal Medicine; ATTEND Internal Medicine
DX: G89.18 Other acute postprocedural pain (principal); N39.0 Urinary tract infection, site not specified; N13.30 Unspecified hydronephrosis; E87.1 Hypo-osmolality and hyponatremia; N23 Unspecified renal colic; D64.9 Anemia, unspecified; R31.29 Other microscopic hematuria
CPT/HCPCS: 36415; 74400; 80048; 80053; 81001; 85025; 87086; 99284; G0378; J0696; J1885; J1980; J2270; J7030; Q9967

== ENCOUNTER → 2018-02-24 | Outpatient (CLI) | payer OTHER ==
[~2018-02-24] MED LIST changes: +FUROSEMIDE INJ 10 MG/ML 4 ML VIAL ONE; +ULTRAM50 MG PO
--- NOTE | 2018-02-24 21:21 | Diagnostic Imaging Report ---
Renal Scan with Lasix [place] Clinical information: 37 F with renal calculi bilaterally. Stent placed 11/2017-01/2018 but removed because caused ureteral swelling Technique: Following intravenous administration of 11 mCi of Tc-99m MAG3, dynamic images of the kidneys in the posterior projection were obtained through 32 minutes. Lasix 40 mg was administered intravenously at 12 minutes post injection of the tracer. Report: Left kidney: Perfusion of the left kidney is prompt. The kidney has a normal reniform shape. Extraction of tracer from the blood pool is normal. Clearance of tracer from the renal parenchyma is prompt. The pelvicalyceal system is very mildly dilated. Increased pooling of tracer within the pelvicalyceal system is seen. Drainage of tracer from the pelvicalyceal system is prompt and adequate prior to administration of Lasix. No significant stasis of tracer is seen within the left ureter. Right kidney: Perfusion of the right kidney is prompt. The kidney has a normal reniform shape. Extraction of tracer from the blood pool is normal. Clearance of tracer from the renal parenchyma is prompt. The pelvicalyceal system is very mildly dilated. Increased pooling of tracer within the pelvicalyceal system is seen. Drainage of tracer from the pelvicalyceal system is prompt and adequate prior to administration of Lasix. No significant stasis of tracer is seen within the right ureter. Differential renal function: The left kidney contributes 53% of total renal function and the right kidney contributes 47% (normal 43-57%). Impression: 1. The function of the left kidney is generally normal. No hydronephrosis is present. No physiologically significant obstruction of the renal collecting system is present. 2. The function of the right kidney is generally normal. No hydronephrosis is present. No physiologically significant obstruction of the renal collecting system is present. 3. The differential renal function is preserved. Signed by: Dr. Eva Mann M.D. on 02/24/2018 9:18 PM
== END ==
LOC: NM 08:08
PROVIDERS: ATTEND Urology
DX: N20.1 Calculus of ureter (principal); T19.1XXA Foreign body in bladder, initial encounter
CPT/HCPCS: 78708; A9562; J1940

== ENCOUNTER 2020-01-30 17:37 | Inpatient (IN) | payer OTHER ==
--- NOTE | 2019-01-29 20:10 | NUR ---
CALLED DR COHEN TO GET THE ORDERS .PT HAS COME [facility] WITH OUT ORDER .DR COHEN HAS GIVEN THE ORDERS .PT C/O PAIN AND GIVEN ORDERED DILAUDID.PT RESTING CONTINUE TO MONITOR
[~2020-01-30] VITALS: Ht 160 cm; Wt 86.2 kg
[~2020-01-30 17:37] MED LIST changes: -FUROSEMIDE INJ 10 MG/ML 4 ML VIAL ONE
[2020-01-30 18:38] VITALS: BP 140/76
--- NOTE | 2020-01-30 19:24 | NUR ---
RECEIVED PT IN BED AOX3 ,BEDSIDE REPORT IS GIVEN BY ON GOING NURSE RESPIRATIONS ARE EVEN AND UNLABORED ,SKIN WARM AND DARBY TO TOUCH ,FAMILY AT THE BEDSIDE ,ASSESSMENT DONE .ORIENTED THE PT TO THE ENVIRONMENT.CALL LIGHT WITH IN REACH AND CONTINUE TO MONITOR
[2020-01-30 20:00] VITALS: BP 125/79
[2020-01-30] MEDS: SODIUM CHLORIDE 0.9% 1000ML 1,000 ML IV SCH (20:15)
[2020-01-30] MEDS ORDERED: DOCUSATE SODIUM 100 MG CAP PO PRN (20:15)
[2020-01-30] MEDS ORDERED: ADDERALL 15 MG15 MG PO (20:32)
[2020-01-30] MEDS: HYDROMORPHONE 1MG/1ML INJ IV PRN (22:00)
[2020-01-31] VITALS (10 sets, daily range): BP systolic 111–125; BP diastolic 66–80
[2020-01-31] MEDS: HYDROMORPHONE 1MG/1ML INJ IV PRN ×6 (02:52→22:18)
--- NOTE | 2020-01-31 06:29 | NUR ---
PT C/O PAIN AND GIVEN ORDERED PAIN MEDICATION .CALL LIGHT WITH IN REACH .CONTINUE TO MONITOR
[2020-01-31 06:41] LABS: BASOPHILS % 0.2 % (0.0-1.0); EOSINOPHILS # (AUTO) 0.1 (0.0-0.4); EOSINOPHILS % 1.7 % (0.0-6.0); HEMATOCRIT 37.3 % (34.2-44.1); HEMOGLOBIN 12.2 g/dL (12.0-16.0); LYMPHOCYTES # (AUTO) 2.7 (1.0-3.2); MEAN CORPUSCULAR HEMOGLOBIN 30.4 pg (28-32); MEAN CORPUSCULAR HGB CONC 32.7 g/dL (31-35); MONOCYTES # (AUTO) 0.6 (0.2-0.8); MONOCYTES % 7.5 % (4.4-11.3); NEUTROPHILS # (AUTO) 4.5 (2.1-6.9); NEUTROPHILS % 56.1 % (38.7-80.0); PLATELET COUNT 270 x10e3/uL (140-360); RED BLOOD COUNT 4.01 x10e6/uL (3.6-5.1); RED CELL DISTRIBUTION WIDTH 12.9 % (11.7-14.4)
[2020-01-31 06:54] LABS: ANION GAP 9.5 mmol/L (8-16); BLOOD UREA NITROGEN 19 mg/dL (7-26); BUN/CREATININE RATIO 27 (6-25); CALCIUM 8.4 mg/dL (8.4-10.2); CARBON DIOXIDE 30 mmol/L (22-29); CHLORIDE 104 mmol/L (98-107); EST GLOMERULAR FILTRATION RATE > 60 ML/MIN (60-); GLUCOSE 96 mg/dL (74-118); POTASSIUM 4.5 mmol/L (3.5-5.1); SODIUM 139 mmol/L (136-145)
--- NOTE | 2020-01-31 06:58 | NUR ---
H&P cc: flank pain HPI: 39yoF, PCP , Urologist , developed left abd pain with nausea, went to [facility] ER, found to have left hydroureteronephrosis and 4x8mm ureteral stone, transferred to hospital for mgmt. PAST MEDICAL HISTORY: 1. Right-sided urolithiasis status post stent placement. 2. Intractable pain secondary to urolithiasis. 3. Asymptomatic bradycardia. 4. Right hydronephrosis secondary to right-sided urolithiasis. 5. Mild normocytic anemia. 6. Obesity with a body mass index of 38.1. 7. DM2 8. 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 9. Mild normocytic anemia. 10.Nephrolithiasis 11.Left ureteral stent 12.Left Hydronephrosis 13.UTI 14.Hematuria PAST SURGICAL HISTORY: Kidney stone surgery, lithotripsy, , tubal ligation, left ureteral stent ALLERGIES: NO KNOWN DRUG ALLERGIES. FAMILY HISTORY: Diabetes mellitus in her grandparent. SOCIAL HISTORY: Patient is single. She has 3 children. Denies any illicits or cigarettes. She drinks alcohol occasionally. She works in [employer]. MEDICATIONS: Per the electronic medical records. ROS:no f/c/s/V/D/[place]/cp/sob/skin rash/confusion/dizziness/leg pain/ v/s revd PHYSICAL EXAMINATION tired appearing anicteric ns1s2 mod bs soft nd; LEFT ABDOMEN TENDER; no flank tenderness no leg edema skin dry n. affect a&ox3; gamez labs/meds revd A/P: 39yoF Left Ureterolithiasis 4x8mm; IVF; - IVF; flomax; urology consult; UA still not obtained; check STAT. Start empiric abx. Left hydroureteronephrosis- monitor; DM2- check hab1c/lipids Obesity- 1/2 portion sizes; BMI 33- as above HLD- check lipids Prop: scd Dispo; MINDY COHEN MD, PHD.
--- NOTE | 2020-01-31 07:00 | NUR ---
ASSUMED CARE. AAOX3. ACYANOTIC. RESTING IN BED. NO DISTRESS NOTED. CALL LIGHT IN REACH. SIDE RAILS UP X2. BED LOW AND LOCKED.
--- NOTE | 2020-01-31 07:39 | NUR ---
BEDSIDE REPORT GIVEN TO THE ONCOMING NURSE
[2020-01-31] MEDS: CEFTRIAXONE SOD 1 GM/NS 50 ML 50 ML IV SCH (07:51)
[2020-01-31 08:28] LABS: CHOL/HDL RATIO 3.7 (3.0-3.6)
[2020-01-31 08:52] LABS: CLARITY,URINE CLEAR (CLEAR); COLOR,URINE YELLOW (YELLOW)
[2020-01-31 08:53] LABS: BILIRUBIN,URINE NEGATIVE (NEGATIVE); KETONES,URINE NEGATIVE (NEGATIVE); LEUKOCYTE ESTERASE ,URINE NEGATIVE (NEGATIVE); NITRITE,URINE NEGATIVE (NEGATIVE); PROTEIN,URINE DIPSTICK NEGATIVE (NEGATIVE); URINE UROBILINOGEN 0.2 mg/dL (0.2 - 1)
[2020-01-31 08:57] LABS: BACTERIA,URINE RARE /HPF
[2020-01-31 08:58] LABS: EPITHELIAL CELLS,URINE FEW /LPF
[2020-01-31] MEDS: AMPHET PO SCH (09:00)
[2020-01-31] MEDS: D AMPHET PO SCH (09:00)
[2020-01-31] MEDS: AMPHET ASP PO SCH (09:00)
[2020-01-31] MEDS: FAMOTIDINE 20 MG/2 ML VIAL IV SCH ×2 (09:29→16:39)
[2020-01-31] MEDS: DOCUSATE SODIUM 100 MG CAP PO SCH ×2 (09:29→16:39)
[2020-01-31] MEDS: TAMSULOSIN HCL 0.4 MG CAP PO SCH (09:29)
[2020-01-31] MEDS: SENNOSIDES 8.6 MG TAB PO SCH ×2 (09:30→20:04)
--- NOTE | 2020-01-31 10:15 | Consultation ---
DATE OF CONSULTATION: 01/31/2020 Urology Consultation. Consultation is called by neighbors in the emergency room. CHIEF COMPLAINT/REASON FOR CONSULTATION: Kidney stones. HISTORY OF PRESENT ILLNESS: Ms. Worthy is a very pleasant 39-year-old female, patient of Dr. Pablo Alexandra. She presents with acute onset of flank pain, found to have a 4 x 8 mm left distal ureteral calculus, proximal hydronephrosis, also noted to have two up to 10 mm right lower pole kidney stones. Denied dysuria. Denied gross hematuria. Denied fevers. No chills. PAST MEDICAL/SURGICAL HISTORY: As above with tonsillectomy, adenoidectomy, back surgery, , hemorrhoidectomy, hysterectomy, multiple lithotripsies, stent placements, and hypertension. MEDICATIONS: Please see MAR. ALLERGIES: NKDA. SOCIAL HISTORY: No smoking or drinking. FAMILY HISTORY: Denied urologic stones or malignancies. REVIEW OF SYSTEMS: Noncontributory other than problems mentioned above for 12-organ systems. PHYSICAL EXAMINATION: GENERAL: Middle-aged female, in no distress. VITAL SIGNS: Currently, temperature 97.7, pulse 49, respirations 16, blood pressure of 123/76, BMI 33.65. HEENT: Sclerae anicteric. NECK: Supple. BACK: Without costovertebral angle tenderness. ABDOMEN: Soft, nontender, nondistended. No palpable mass. No palpable hernias. No palpable adenopathy. : Normal female external genitalia. EXTREMITIES: No edema. NEURO: Moves all 4 extremities. PSYCH: Alert, mood appropriate. SKIN: Intact. Normal color. PERTINENT LABORATORY DATA: CT scan revealing a right lower pole stone x2, up to 10 mm. Left hydronephrosis secondary to a 4 x 8 mm distal ureteral calculus. Urinalysis 5-10 reds, 5-10 whites. Sodium 139, potassium 4.5, chloride 104, bicarb 30, BUN 19, creatinine 0.7, glucose 96. Hemoglobin 12, hematocrit 37, platelet count 270,000. White cell count 8000. IMPRESSION: 1. Ureteral calculus. 2. Renal calculus. 3. Hydronephrosis. 4. Question urinary tract infection. 5. Microscopic hematuria. PLAN: We will employ a brief trial of passage. Should this fail, the patient will likely need stenting. For now, she has been placed on broad-spectrum antibiotics, we will agree with this. Thank you for allowing me to participate in the care of your patient. We will be happy to follow along with you. MD MATTI Nieto/MIGUELL /[id number]
--- NOTE | 2020-01-31 10:20 | NUR ---
PATIENT CURRENTLY OFF UNIT FOR SCHEDULED KUB. PATIENT'S DAUGHTER PRESENT AT THE BEDSIDE.
--- NOTE | 2020-01-31 11:47 | Diagnostic Imaging Report ---
EXAM: Abdomen Radiograph 1 View(s) INDICATION: Abdominal pain suspicious for kidney stone. COMPARISON: Abdominal radiograph on . Abdomen and pelvic CT on 12/17/2017. FINDINGS: Nonobstructive bowel gas pattern. Moderate stool burden in the colon. Punctate calcifications projecting over the left kidney represents known nephrolithiasis. Obstructive left ureteral stone seen on comparison CT is not well appreciated by plain radiograph. The bones are normal. Soft tissues are normal. IMPRESSION: Left nonobstructive nephrolithiasis. No ureteral stone identified. Signed by: Marquez Norton MD on 01/31/2020 11:43 AM
[2020-01-31] MEDS: SODIUM CHLORIDE 0.9% 1000ML 1,000 ML IV SCH ×2 (12:42→22:22)
[2020-01-31] MEDS: ACETAMINOPHEN 325 MG TAB PO PRN (19:45)
[2020-01-31] MEDS: ONDANSETRON HCL INJ 2MG/ML 2ML 2 MG/ML VIAL IV PRN (22:18)
[2020-02-01] VITALS (7 sets, daily range): BP systolic 115–146; BP diastolic 69–76
[2020-02-01] MEDS: CEFTRIAXONE SOD 1 GM/NS 50 ML 50 ML IV SCH (06:21)
[2020-02-01] MEDS: SODIUM CHLORIDE 0.9% 1000ML 1,000 ML IV SCH ×3 (06:21→20:23)
--- NOTE | 2020-02-01 06:53 | NUR ---
IM- progress note O/N see below ROS:no f/c/s/V/D/STANTON/cp/sob/skin rash/confusion/dizziness/leg pain/ v/s revd PHYSICAL EXAMINATION tired appearing anicteric ns1s2 mod bs soft nd; LEFT ABDOMEN TENDER; no flank tenderness no leg edema skin dry n. affect a&ox3; gamez labs/meds revd A/P: 39yoF Left Ureterolithiasis 4x8mm; IVF; - IVF; flomax; urology consult; UA still not obtained; check STAT. Start empiric abx. Left hydroureteronephrosis- monitor; DM2- check hab1c/lipids Obesity- 1/2 portion sizes; BMI 33- as above HLD- check lipids Prop: scd Dispo; 11-2 possible stent; cont fluids; check hab1c/lipids MINDY COHEN MD, PHD.
--- NOTE | 2020-02-01 07:11 | NUR ---
Bedside report and walking rounds completed with oncoming nurse. Patient in bed with call light within reach. No issues or concerns noted
[2020-02-01] MEDS: FAMOTIDINE 20 MG/2 ML VIAL IV SCH ×2 (08:52→17:56)
[2020-02-01] MEDS: TAMSULOSIN HCL 0.4 MG CAP PO SCH (08:52)
[2020-02-01] MEDS: DOCUSATE SODIUM 100 MG CAP PO SCH ×2 (08:52→17:56)
[2020-02-01] MEDS: SENNOSIDES 8.6 MG TAB PO SCH ×2 (08:52→20:22)
[2020-02-01] MEDS: ACETAMINOPHEN 325 MG TAB PO PRN (08:56)
[2020-02-01] MEDS: AMPHET PO SCH (09:00)
[2020-02-01] MEDS: D AMPHET PO SCH (09:00)
[2020-02-01] MEDS: AMPHET ASP PO SCH (09:00)
[2020-02-01] MEDS: HYDROMORPHONE 1MG/1ML INJ IV PRN ×5 (09:20→22:09)
--- NOTE | 2020-02-01 09:27 | Diagnostic Imaging Report ---
EXAM: Abdomen Radiograph 1 View(s) INDICATION: Follow-up of left distal ureteral stone. Kidney stones. Abdominal pain suspicious for kidney stone. COMPARISON: January 31, 2020. Abdominal radiograph on . Abdomen and pelvic CT on 12/17/2017. FINDINGS: Nonobstructive bowel gas pattern. Moderate stool burden in the colon. Punctate calcifications projecting over the left kidney represents known nephrolithiasis. Obstructive left ureteral stone seen on comparison CT is not well appreciated by plain radiograph. The bones are normal. Soft tissues are normal. IMPRESSION: Left nonobstructive nephrolithiasis. No ureteral stone identified. Signed by: Dr. Art Reyna M.D. on 02/01/2020 9:23 AM
[2020-02-01] MEDS: ONDANSETRON HCL INJ 2MG/ML 2ML 2 MG/ML VIAL IV PRN ×2 (13:13→22:09)
[2020-02-01] MEDS: ZOLPIDEM TARTRATE 5 MG TAB PO PRN (20:22)
[2020-02-02] VITALS (8 sets, daily range): BP systolic 123–137; BP diastolic 71–83
[2020-02-02] MEDS: HYDROMORPHONE 1MG/1ML INJ IV PRN ×6 (01:04→20:00)
[2020-02-02] MEDS: SODIUM CHLORIDE 0.9% 1000ML 1,000 ML IV SCH ×2 (01:46→13:13)
[2020-02-02] MEDS: CEFTRIAXONE SOD 1 GM/NS 50 ML 50 ML IV SCH (06:01)
--- NOTE | 2020-02-02 06:17 | NUR ---
IM- progress note O/N see below ROS:no f/c/s/V/D/STANTON/cp/sob/skin rash/confusion/dizziness/leg pain/ v/s revd PHYSICAL EXAMINATION tired appearing anicteric ns1s2 mod bs soft nd; LEFT ABDOMEN TENDER; no flank tenderness no leg edema skin dry n. affect a&ox3; gamez labs/meds revd A/P: 39yoF Left Ureterolithiasis 4x8mm; IVF; - IVF; flomax; urology consult; UA still not obtained; check STAT. Start empiric abx. Left hydroureteronephrosis- monitor; DM2- check hab1c/lipids Obesity- 1/2 portion sizes; BMI 33- as above HLD- check lipids Prop: scd Dispo; 11-2 possible stent; cont fluids; check hab1c/lipids 11-3 check labs; no surgery today. Stone no longer obstructive? continue protocol for stone. f/u urology MINDY COHEN MD, PHD.
--- NOTE | 2020-02-02 07:00 | NUR ---
BEDSIDE SHIFT REPORT RECEIVED FROM THE MERCHANDISE DISPLAYER RN. EDUCATED PT ABOUT FALL PRECAUTIONS. PT VERBALIZED UNDERSTANDING. CALL LIGHT WITH IN EASY REACH. INSTRUCTED PT TO USE CALL LIGHT FOR ALL THE NEEDS. BED IS LOW AND LOCKED. SIDE RAILS X2. BED ALARM IS ON. PT DENIES NEEDS AT THIS TIME.
[2020-02-02 07:22] LABS: ANION GAP 10.1 mmol/L (8-16); BLOOD UREA NITROGEN 11 mg/dL (7-26); BUN/CREATININE RATIO 15 (6-25); CALCIUM 8.2 mg/dL (8.4-10.2); CARBON DIOXIDE 28 mmol/L (22-29); CHLORIDE 106 mmol/L (98-107); CREATININE, SERUM 0.71 mg/dL (0.57-1.11); EST GLOMERULAR FILTRATION RATE > 60 ML/MIN (60-); GLUCOSE 97 mg/dL (74-118); POTASSIUM 4.1 mmol/L (3.5-5.1); SODIUM 140 mmol/L (136-145)
[2020-02-02] MEDS: FAMOTIDINE 20 MG/2 ML VIAL IV SCH ×2 (08:12→16:12)
[2020-02-02] MEDS: SENNOSIDES 8.6 MG TAB PO SCH ×2 (08:17→20:49)
[2020-02-02] MEDS: TAMSULOSIN HCL 0.4 MG CAP PO SCH (08:17)
[2020-02-02] MEDS: DOCUSATE SODIUM 100 MG CAP PO SCH ×2 (08:17→16:12)
[2020-02-02] MEDS: ONDANSETRON HCL INJ 2MG/ML 2ML 2 MG/ML VIAL IV PRN ×3 (08:22→20:00)
[2020-02-02] MEDS: AMPHET PO SCH (09:00)
[2020-02-02] MEDS: D AMPHET PO SCH (09:00)
[2020-02-02] MEDS: AMPHET ASP PO SCH (09:00)
--- NOTE | 2020-02-02 16:00 | NUR ---
PT INFORMED PT WILL KEEP HER HOME MED ADDERALL WITH HER. PER PT, SHE IS NOT TAKING ANY HOME MEDS. EDUCATED PT ABOUT HOSPITAL POLICY ON MEDS AND PT VERBALIZED UNDERSTANDING.
[2020-02-02] MEDS ORDERED: CITRATE OF MAGNESIA 300ML BOTTLE PO ONE (18:00)
--- NOTE | 2020-02-02 19:15 | NUR ---
BEDSIDE SHIFT REPORT GIVEN TO THE COAL SAMPLE TESTER RN. PT DENIED FURTHER NEEDS.
[2020-02-02] MEDS ORDERED: BISACODYL 5 MG TAB EC PO ONE (20:00)
[2020-02-03] VITALS (9 sets, daily range): BP systolic 115–139; BP diastolic 65–83
[2020-02-03] MEDS: ONDANSETRON HCL INJ 2MG/ML 2ML 2 MG/ML VIAL IV PRN ×5 (00:17→21:05)
[2020-02-03] MEDS: HYDROMORPHONE 1MG/1ML INJ IV PRN ×6 (00:17→21:05)
[2020-02-03] MEDS: ZOLPIDEM TARTRATE 5 MG TAB PO PRN ×2 (00:19→21:05)
[2020-02-03] MEDS ORDERED: BISACODYL 10 MG SUPP PR ONE (06:00)
[2020-02-03] MEDS: CEFTRIAXONE SOD 1 GM/NS 50 ML 50 ML IV SCH (06:20)
--- NOTE | 2020-02-03 07:00 | NUR ---
BEDSIDE SHIFT REPORT RECEIVED FROM THE MOLD SPRAYER RN. EDUCATED PT ABOUT FALL PRECAUTIONS. PT VERBALIZED UNDERSTANDING. BED IS LOW AND LOCKED. SIDE RAILS X2. CALL LIGHT WITH IN EASY REACH. ALL SAFETY MEASURES IN PLACE. PT DENIES NEEDS AT THIS TIME.
[2020-02-03] MEDS ORDERED: IOPAMIDOL 300MG/ML 100 ML INFUS..BTL IV ONE (08:51)
--- NOTE | 2020-02-03 08:55 | NUR ---
PT OFF TO RADIOLOGY IN SAFE CONDITION.
[2020-02-03] MEDS: DOCUSATE SODIUM 100 MG CAP PO SCH ×2 (09:00→17:00)
[2020-02-03] MEDS: AMPHET PO SCH (09:00)
[2020-02-03] MEDS: D AMPHET PO SCH (09:00)
[2020-02-03] MEDS: SENNOSIDES 8.6 MG TAB PO SCH ×2 (09:00→21:00)
[2020-02-03] MEDS: AMPHET ASP PO SCH (09:00)
--- NOTE | 2020-02-03 09:15 | NUR ---
IM- progress note O/N see below ROS:no f/c/s/V/D/STANTON/cp/sob/skin rash/confusion/dizziness/leg pain/ v/s revd PHYSICAL EXAMINATION tired appearing anicteric ns1s2 mod bs soft nd; LEFT ABDOMEN TENDER; no flank tenderness no leg edema skin dry n. affect a&ox3; gamez labs/meds revd A/P: 39yoF Left Ureterolithiasis 4x8mm; IVF; - IVF; flomax; urology consult; UA still not obtained; check STAT. Start empiric abx. Left hydroureteronephrosis- monitor; DM2- check hab1c/lipids Obesity- 1/2 portion sizes; BMI 33- as above HLD- check lipids Prop: scd Dispo; 11-2 possible stent; cont fluids; check hab1c/lipids 11-3 check labs; no surgery today. Stone no longer obstructive? continue protocol for stone. f/u urology 11-4 IV pyelogram today; plans per urology. pt still c/o pain. MINDY COHEN MD, PHD.
--- NOTE | 2020-02-03 10:05 | NUR ---
Pt unavailable at this time. Will follow up as able. TIMBO ROBLEDO Merchandise Adjustment Clerk Spiritual Care Department O: [phone]
--- NOTE | 2020-02-03 10:15 | NUR ---
PT IS BACK TO THE UNIT AFTER PROCEDURE. PT DENIES NEEDS AT THIS TIME.
--- NOTE | 2020-02-03 10:30 | NUR ---
Received call from SALAS RAYO with insurance - [employer] Britt [phone] ext [phone]. States if pt needs HH or DME [facility].
[2020-02-03] MEDS: FAMOTIDINE 20 MG/2 ML VIAL IV SCH ×2 (10:35→17:23)
[2020-02-03] MEDS: TAMSULOSIN HCL 0.4 MG CAP PO SCH (10:35)
[2020-02-03] MEDS: SODIUM CHLORIDE 0.9% 1000ML 1,000 ML IV SCH ×2 (12:06→21:04)
--- NOTE | 2020-02-03 17:11 | Diagnostic Imaging Report ---
EXAM: Intravenous Pyelogram INDICATION: Ureteral calculus, hydronephrosis COMPARISON: KUB 02/01/2020 FINDINGS: MODELING AGENT: Left lower pole stones measure up to 3mm. Right lower pole stones measure up to 4mm. No ureteral calculi. Pelvic phleboliths Intravenous pyelogram: Contrast fills the collecting system and both ureters with complete opacification. No hydronephrosis or hydroureter. Bladder fills normally with contrast. IMPRESSION: Bilateral lower pole renal calculi as above. Otherwise, normal intravenous pyelogram. Signed by: Cheryl Hearn MD on 02/03/2020 5:07 PM
--- NOTE | 2020-02-03 18:55 | NUR ---
BEDSIDE SHIFT REPORT GIVEN TO THE ENTERPRISE SOLUTIONS ARCHITECT RN. PT DENIED FURTHER NEEDS.
[2020-02-04] VITALS (8 sets, daily range): BP systolic 115–135; BP diastolic 73–85
[2020-02-04] MEDS: ONDANSETRON HCL INJ 2MG/ML 2ML 2 MG/ML VIAL IV PRN ×4 (03:20→20:34)
[2020-02-04] MEDS: HYDROMORPHONE 1MG/1ML INJ IV PRN ×2 (03:20→06:59)
[2020-02-04] MEDS: CEFTRIAXONE SOD 1 GM/NS 50 ML 50 ML IV SCH (06:27)
[2020-02-04] MEDS: SODIUM CHLORIDE 0.9% 1000ML 1,000 ML IV SCH ×2 (06:27→17:27)
--- NOTE | 2020-02-04 06:36 | NUR ---
IM- progress note O/N see below ROS:no f/c/s/V/D/STANTON/cp/sob/skin rash/confusion/dizziness/leg pain/ v/s revd PHYSICAL EXAMINATION tired appearing anicteric ns1s2 mod bs soft nd; LEFT ABDOMEN TENDER; no flank tenderness no leg edema skin dry n. affect a&ox3; gamez labs/meds revd A/P: 39yoF Left Ureterolithiasis 4x8mm; IVF; - IVF; flomax; urology consult; UA still not obtained; check STAT. Start empiric abx. Left hydroureteronephrosis- monitor; DM2- check hab1c/lipids Obesity- 1/2 portion sizes; BMI 33- as above HLD- check lipids Prop: scd Dispo; 11-2 possible stent; cont fluids; check hab1c/lipids 11-3 check labs; no surgery today. Stone no longer obstructive? continue protocol for stone. f/u urology 11-4 IV pyelogram today; plans per urology. pt still c/o pain. 11-5 persistent symptoms; CT planned MINDY COHEN MD, PHD.
--- NOTE | 2020-02-04 07:00 | NUR ---
BEDSIDE SHIFT REPORT RECEIVED FROM THE DIRECTOR DESIGN RN. EDUCATED PT ABOUT FALL PRECAUTIONS. PT VERBALIZED UNDERSTANDING. CALL LIGHT WITH IN EASY REACH. INSTRUCTED PT TO USE CALL LIGHT FOR ALL THE NEEDS. BED IS LOW AND LOCKED. SIDE RAILS X2. PT DENIES NEEDS AT THIS TIME.
[2020-02-04] MEDS: DOCUSATE SODIUM 100 MG CAP PO SCH ×2 (08:27→16:00)
[2020-02-04] MEDS: SENNOSIDES 8.6 MG TAB PO SCH ×2 (08:27→20:34)
[2020-02-04] MEDS: TAMSULOSIN HCL 0.4 MG CAP PO SCH (08:27)
[2020-02-04] MEDS: AMPHET PO SCH (08:28)
[2020-02-04] MEDS: AMPHET ASP PO SCH (08:28)
[2020-02-04] MEDS: FAMOTIDINE 20 MG/2 ML VIAL IV SCH ×2 (08:28→16:00)
[2020-02-04] MEDS: D AMPHET PO SCH (08:28)
--- NOTE | 2020-02-04 09:23 | Diagnostic Imaging Report ---
EXAM: CT Abdomen and Pelvis WITHOUT intravenous contrast INDICATION: ^KIDNEY STONE - STONE PROTOCOL PER DR. RIVAS ^[id number] ^[id number] ^Y. COMPARISON: Intravenous pyelogram dated 02/03/[address] dated 12/17/2017 TECHNIQUE: Abdomen and pelvis were scanned utilizing a multidetector helical scanner from the lung base to the pubic symphysis without administration of IV contrast. Coronal and sagittal reformations were obtained. Routine technique was performed. IV CONTRAST: None ORAL CONTRAST: None COMPLICATIONS: None RADIATION DOSE: Total DLP: 790 mGy*cm Dose modulation, iterative reconstruction, and/or weight based adjustment of the mA/kV was utilized to reduce the radiation dose to as low as reasonably achievable. FINDINGS: LOWER THORAX: Normal. HEPATOBILIARY: No focal hepatic lesions. No biliary ductal dilatation. The gallbladder appears unremarkable. SPLEEN: No splenomegaly. PANCREAS: No focal masses or ductal dilatation. ADRENALS: No adrenal nodules. KIDNEYS/URETERS: There are multiple bilateral lower pole renal calculus. The left interpolar region there is a 2 mm calculus. In the right lower pole there are 2 adjacent calculi measuring 4 and 3 mm. Within the distal left ureter there is a 4 mm calculus with mild proximal dilatation of the ureter and mild left hydronephrosis. Intermittent prominence of the right ureter and right renal pelvis is noted, nonspecific. PELVIC ORGANS/BLADDER: Bladder is unremarkable. Uterus is surgically absent. Left ovarian hypodense cyst is noted. PERITONEUM / RETROPERITONEUM: No free air or fluid. LYMPH NODES: No lymphadenopathy. VESSELS: Unremarkable. GI TRACT: Limited evaluation. Stomach is moderately distended and unremarkable. Moderate colonic stool burden is noted. Normal appendix is noted. Negative for bowel obstruction or surrounding inflammatory changes. BONES AND SOFT TISSUES: No acute osseous abnormality. Moderate focal degenerative changes noted at L5-S1. No suspicious lytic or blastic lesion is identified. IMPRESSION: 1. 4 mm left distal ureteral stone. Mild left hydroureteronephrosis is noted. No surrounding inflammatory changes are noted. Given the intravenous pyelogram demonstrating antegrade passage of contrast distal to the stone there is likely partial or intermittent obstruction of the ureter. 2. Nonobstructing bilateral lower pole renal calculi. Signed by: Jonathan Hughes MD on 02/04/2020 9:19 AM
[2020-02-04] MEDS: MORPHINE SULFATE 2 MG/ML SYR 1ML IV PRN ×3 (11:25→20:34)
--- OUTSIDE RECORDS SUMMARY | 2020-02-04 18:21 | XMS REPORT | Continuity of Care Document ---
Author Author Joaquim Matisharon Barrow JENNA Francis Organization [employer] Address Unknown Phone Unavailable Care Team Providers Care Quill Cleaner Name Role Phone [employer] Information [employer] Unavailable Un available Problems Problem Status Onset Date Classification Date Reported Comments Source Encounter for screening mammogram for ma lignant neoplasm of breast 02/15/2018 09/03/2018 [facility] [place] Z12.31 - ENCNTR SCREEN MAMMOGRAM FOR MA Active 10/13/2015 [facility] Medications No Data Provided for This Section Allergies, Adverse Reactions, Alerts No Known Medication Allergies Immunizations No Data Provided for This Section Results No Data Provided for This Section Pathology Reports No Data Provided for This Section Diagnostic Reports Report Value Date Source Breast Mammo Scrn ADILSON incl CAD MA BILATERAL DIGITAL SCREENING MAMMOGRAM WITH CAD: 02/13/2018 CLINICAL: Routine/Z12.31. Current study was evaluated with a Computer Aided Detection (CAD) system. COMPARISON:Comparison is made to exam dated: 10/21/2015 mammogram - [facility]. TECHNIQUE: Mammographic views were obtained using digital acquisition. Current study was also evaluated with a Computer Aided Detection (CAD) system. FINDINGS: The tissue of both breasts is heterogeneously dense, which could obscure detection of small masses. No significant masses, calcifications, or other findings are seen in either breast. There has been no significant interval change. IMPRESSION: NEGATIVE RECOMMENDATION:There is no mammographic evidence of malignancy. A 2 year screening mammogram is recommended.(02/14/2020) This exam was interpreted at [id number] for [facility]. Professional services are provided by the [facility]. Blayne keane/vidya:02/13/2018 13:49:00 Armature Winder(s): RT Karen(R)(M[facility] [place] [facility] sent: BI-RADS 1/2 Dense Mammogram BI-RADS: 1 Negative 02/13/2018 [facility] Digital Mammo Screening [place] MA - DIGITAL MAMMO SCREENING [place] MA BILATERAL [place] DIGITAL SCREENING MAMMOGRAM WITH CAD: 10/21/2015 CLINICAL: Routine. Family history of breast cancer includes: 2 Maternal great aunts at unknown age. Current study was evaluated with a Computer Aided Detection (CAD) system. No prior exams were available for comparison. The tissue of both breasts is heterogeneously dense, which could obscure detection of small masses. No significant masses, calcifications, or other findings are seen in either breast. IMPRESSION: NEGATIVE There is no mammographic evidence of malignancy. A 4 year screening mammogram is recommended. Eddie madden/penrad:10/24/2015 14:47:36 Armature Winder: [facility] ACKERMAN[facility] This exam was dictated and interpreted by [id number] for [facility]. letter sent: Normal exam Mammogram BI-RADS: 1 Negative 10/21/2015 [facility] Consultation Notes No Data Provided for This Section Discharge Summaries No Data Provided for This Section History and Physicals No Data Provided for This Section Vital Signs No Data Provided for This Section Encounters Location Location Details Encounter Type Encounter Number Reason For Visit Attending Provider ADM Date DC Date Status Source [facility] [id number] 00 Elliot Maciel 10/21/2015 10/22/2015 [facility] [place] [facility] [id number] Elliot Maciel 02/13/2018 02/14/2018 [facility] Procedures No Data Provided for This Section Assessment and Plan No Data Provided for This Section Plan of Care No Data Provided for This Section Social History Social History Date Source No data available for this section 02/14/2018 [facility] No data available for this section 10/22/2015 [facility] Family History No Data Provided for This Section Advance Directives No Data Provided for This Section Functional Status No Data Provided for This Section
--- OUTSIDE RECORDS SUMMARY | 2020-02-04 18:21 | XMS REPORT | Clinical Summary ---
Author Author [facility] Organization [facility] Address Unknown Phone Unavailable Care Team Providers Care Special Agent In Charge Name Role Phone J Carlos Boland MD PCP Allergies No Known Active Allergies Medications End Date Status Medication Sig Dispensed Refills Start Date Active dextroamphetamine-ampheta Take 15 mg by 0 mine (ADDERALL) 10 mg mouth daily. tablet Active traMADol (ULTRAM) 50 mg Take 50 mg by 0 tablet mouth every 6 (six) hours as needed for moderate pain. 02/18/2019 meloxicam (MOBIC) 15 mg Take 1 tablet 20 tablet 0 tablet (15 mg total) 9 by mouth daily as needed for mild pain or moderate pain for up to 30 days. 02/18/2019 ondansetron ODT (ZOFRAN Take 1 tablet 10 tablet 0 ODT) 4 MG disintegrating (4 mg total) 9 tablet by mouth every 8 (eight) hours as needed for nausea or vomiting for up to 30 days. Active Problems Not on file Surgical History Surgery Date Site/Laterality Comments BACK SURGERY LAMINECTOMY SECTION HYSTERECTOMY TUBAL LIGATION Medical History Medical History Date Comments Kidney calculi Social History Date Tobacco Use Types Packs/Day Years Used Current Every Day Smoker Cigarettes 0.2 1 Smokeless Tobacco: Never Used Tobacco Cessation: Ready to Quit: No; Co unseling Given: Yes Drinks/Week oz/Week Comments Alcohol Use Socially Yes Sex Assigned at Date Recorded Not on file Last Filed Vital Signs Not on file Plan of Treatment Health Maintenance Due Date Last Done Comments CERVICAL CANCER SCREENING 06/29/2000 INFLUENZA VACCINE 10/31/2019 Results Not on fileafter 01/29/2019 Insurance Type Payer Benefit Subscriber ID Effective Phone Address Plan / Dates Group HMO CIGPAULA CIGPAULA OPEN [id number] ACCESS/NET resent WORK Advance Directives For more information, please contact: [phone] Patient Order Processing Manager Explanation Type Date Recorded Advance Directives, 03/16/2017 12:00 PM Living Will and Medical Power of Label [employer]
--- OUTSIDE RECORDS SUMMARY | 2020-02-04 18:22 | XMS REPORT | Continuity of Care Document ---
Author Author [facility] t Organization [facility] Address [address] [place] [address] Phone Unavailable Care Team Providers Care Hand Weaver Name Role Phone Promise SOTO III PCP MINDY COHEN Attphys Unavailable HAMPEL, YUMIKO Attphys Unavailable Charanjit Maciel Attphys VICKI MONREAL Attphys Unavailable AMRIT DUNN Attphys Unavailable Aki FIELDS Attphys Unavailable VIKTORIYA ZARATE Attphys Unavailable NAYAN WYATT Attphys Unavailable MINDY COHEN Admphys Unavailable VICKI MONREAL Admphys Unavailable KILLRICHARD RUBIOALD Admphys Unavailable Payers Payer Name Policy Type Policy Number Effective Date Expiration Date Perlita Cleary [facility] [id number] 2017 00:00:00 ZANA nolan [facility] Problems Condition Name Condition Details Condition Category Status Onset Date Resolution Date Last Treatment Date Treating Clinician Comments Source Z12.31 - ENCNTR SCREEN MAMMOGRAM FOR MA Z12.31 - ENCNTR SCREEN MAMMOGRAM FOR MA Active 10/13/2015 Joaquim Thorne Diagnosis Active 2015-10-13 00:01:00 2015-10-21 12:06:00 Shelly Thorne Hydronephrosis with urinary obstruction due to uretera l calculus Ureteral stone with hydronephrosis Problem Active 2015-08-12 00:00:00 ZAAN Suh [facility] Calculus of right ureter Right ureteral calculus Problem Activ e 2014-04-16 00:00:00 [facility] Urinary tract infection UTI (urinary tract infection) Problem Active [facility] Encounter for screening mammogram for malignant neopla sm of breast Encounter for screening mammogram for malignant neoplasm of breast 02/15/2018 09/03/2018 ABBI Ybarra Problem 2018-02-15 06:10:13 2018-09-03 11:23:18 2018-09-03 11:23:18 [facility] Allergies, Adverse Reactions, Alerts Allergy Name Allergy Type Status Severity Reaction(s) Onset Date Inacti ve Date Treating Clinician Comments Source No Known Allergies DA Active U 2013-02-28 00:00:00 [facility] Social History Social Habit Start Date Stop Date Quantity Comments Source History of tobacco use Cigarette Smoker Fermin Tejeda Sex Assigned At Vince Tejeda Cigarettes smoked current (pack per day) - Reported 00:00:00 2017-03-19 00:00:00 Fermin Tejeda Cigarette pack-years 2017-03-19 00:00:00 2017-03-19 00:00:00 Fermin Tejeda Tobacco use and exposure 2017-03-19 00:00:00 2017-03-19 00:00:00 Rubae r used Fermin Tejeda Alcohol intake 2017-03-19 00:00:00 2017-03-19 00:00:00 Current drinker of alcohol (finding) Fermin Tejeda Alcohol Comment 2017-03-16 00:00:00 2017-03-16 00:00:00 Socially Fermin Tejeda Social History 2015-10-22 04:59:00 2015-10-22 04:59:00 [facility] Smoking Status Start Date Stop Date Source Current every day smoker 2017-03-19 00:00:00 Vince Tejeda Medications Ordered Medication Name Filled Medication Name Start Date Stop Da te Current Medication? Ordering Clinician Indication Dosage Frequency Signature (SIG) Comments Components Source meloxicam (MOBIC) 15 mg tablet 2019-01-19 00:00:00 2019-02-18 23 :59:00 No 15mg Q24H Take 1 tablet (15 mg total) by mouth daily as needed for mild pain or moderate pain for up to 30 days. Fermin Tejeda ondansetron ODT (ZOFRAN ODT) 4 MG disintegrating tablet 2019-01-19 00:00:00 2019-02-18 23:59:00 No 4mg Q8H Take 1 tablet (4 mg total) by mouth every 8 (eight) hours as needed for nausea or vomiting for up to 30 days. Fermin Tejeda Acetaminophen/Codeine Phosphate (Tylenol # 3*) 1 Ea Ta b Acetaminophen/Codeine Phosphate (Tylenol # 3*) 1 Ea Tab 2017-12-19 00:00:00 Yes Waleska M [place] [employer] 1 Every 6 Hours as needed for Mild Pain (1-3) [facility] Ondansetron (Ondansetron Odt) 8 Mg Tab.[facility] Ondanset richard (Ondansetron Odt) 8 Mg Tab.rapdis 2017-12-19 00:00:00 Yes Waleska M [place] [employer] 4 Every 6 Hours as needed for Nausea [facility] Oxybutynin Chloride 5 Mg Tablet Oxybutynin Chloride 5 Mg Tab let 2017-12-19 00:00:00 Yes Waleska M [place] [employer] 5 Th ree Times A Day as needed for Overactive Bladder [facility] Sulfamethoxazole/Trimethoprim (Bactrim Ds Tablet) 1 Ea Tablet Sulfamethoxazole/Trimethoprim (Bactrim Ds Tablet) 1 Each Tablet 2017-12-19 00:00:00 Yes Waleska M [place] [employer] 1 Twice A Day [facility] dextroamphetamine-amphetamine (ADDERALL) 10 mg tablet 2017-03-16 12:18:44 Yes 15mg QD Take 15 mg by mouth daily. Fermin Tejeda traMADol (ULTRAM) 50 mg tablet 2017-03-16 12:18:44 Yes 50mg Q6H Take 50 mg by mouth every 6 (six) hours as needed for moderate pain. Fermin Tejeda Amphet Asp/Amphet/D-Amphet (Adderall 15 Mg Tablet) 15 Mg Tablet Amphet Asp/Amphet/D-Amphet (Adderall 15 Mg Tablet) 15 Mg Tablet Yes 20 Twice A Day [facility] Acetaminophen With Codeine (Tylenol With Codeine #3 Tablet) 1 Each Tablet, 300 Mg Oral Acetaminophen With Codeine (Tylenol With Codeine #3 Tablet) 1 Each Tablet, 300 Mg Oral 2016-07-24 00:00:00 No 300 Q4-6 as needed for Pain [facility] Acetaminophen/Codeine Phosphate (Tylenol # 3*) 1 Ea Ta b, 1-2 Tab Oral Acetaminophen/Codeine Phosphate (Tylenol # 3*) 1 Ea Tab, 1-2 Tab Oral 2016-07-24 00:00:00 No 1 Every 6 Hours for Pa in [facility] Bupropion Hcl (Wellbutrin) 100 Mg Tablet, 300 Mg Oral Bupropion Hcl (Wellbutrin) 100 Mg Tablet, 300 Mg Oral 2016-07-24 00:00:00 No 3 00 Daily as needed for Anxiety [facility] Ketorolac Tromethamine (Toradol) 10 Mg Tablet, 10 Mg O ral Ketorolac Tromethamine (Toradol) 10 Mg Tablet, 10 Mg Oral 2016-07-24 00:00:00 No 10 Every 8 Hours as needed for Pain [facility] Levofloxacin (Levaquin) 500 Mg Tablet, 500 Mg Oral Lev ofloxacin (Levaquin) 500 Mg Tablet, 500 Mg Oral 2016-07-24 00:00:00 No 500 D aily [facility] Lorazepam 1 Mg Tablet, 1 Mg Oral Lorazepam 1 Mg Tablet, 1 Mg Ora l 2016-07-24 00:00:00 No 1 Every 6 Hours for Anxiety [facility] Nitrofurantoin Monohyd/M-Cryst (Macrobid 100 Mg Capsule) 100 Mg Capsule, 100 Mg Oral Nitrofurantoin Monohyd/M-Cryst (Macrobid 100 Mg Capsule) 100 Mg Capsule, 100 Mg Oral 2016-07-24 00:00:00 No 100 Daily [facility] Ondansetron (Zofran Odt) 4 Mg Tab.rapdis, 4 Mg Oral On dansetron (Zofran Odt) 4 Mg Tab.rapdis, 4 Mg Oral 2016-07-24 00:00:00 No 4 Every 6 Hours as needed for Nausea [facility] Oxybutynin Chloride (Ditropan Xl) 5 Mg Tab.er.24, 5 Mg Oral Oxybutynin Chloride (Ditropan Xl) 5 Mg Tab.er.24, 5 Mg Oral 2016-07-24 00:00:00 No 5 Three Times A Day as needed for Overactive Bladder [facility] Oxybutynin Chloride (Ditropan Xl) 5 Mg Tab.er.24, 5 Mg Oral Oxybutynin Chloride (Ditropan Xl) 5 Mg Tab.er.24, 5 Mg Oral 2016-07-24 00:00:00 No 5 Three Times A Day for Bladder Spasms [facility] Tramadol Hcl (Ultram 50MG*) 50 Mg Tab, 50 Mg Oral Tram adol Hcl (Ultram 50MG*) 50 Mg Tab, 50 Mg Oral 2016-07-24 00:00:00 No 50 Q4-6 as needed for Pain [facility] Citalopram Hydrobromide (Celexa) 20 Mg Tablet, 20 Mg O ral Citalopram Hydrobromide (Celexa) 20 Mg Tablet, 20 Mg Oral 2014-03-10 00:00:00 No 20 Rt Daily [facility] Amoxicillin/Clavulanate K (Augmentin) 875 Mg Tab, 1 M outh/Throat Amoxicillin/Clavulanate K (Augmentin) 875 Mg Tab, 1 Mouth/Throat 2011-12-04 00:00:00 No 1 Twice A Day [facility] Nitrofurantoin/Nitrofuran Mac (Macrobid 100 Mg Capsule) 100 Mg Capsule, 1 Mouth/Throat Nitrofurantoin/Nitrofuran Mac (Macrobid 100 Mg Capsule) 100 Mg Capsule, 1 Mouth/Throat 2011-12-04 00:00:00 No 1 Twice A Day [facility] Oseltamivir Phosphate (Tamiflu) 75 Mg Capsule, 1 Mout h/Throat Oseltamivir Phosphate (Tamiflu) 75 Mg Capsule, 1 Mouth/Throat 2011-12-04 00:00:0 0 No 1 Twice A Day [facility] Procedures Procedure Date / Time Performed Performing Clinician Sour e Cystoscopy with retrograde pyelography 2017-12-17 00:00:00 YUMIKO JACQUES [facility] CT of abdomen and pelvis without contrast 2017-12-17 00:00:00 RONALDO ENRIQUE [facility] CT of abdomen and pelvis without contrast 2017-10-20 00:00:00 LISSETTE WOODARD [facility] Plan of Care Planned Activity Planned Date Details Comments Source Future Scheduled Test 2019-10-31 00:00:00 INFLUENZA VACCINE [code = INFLUENZA VACCINE] Fermin Tejeda Future Scheduled Test 2000-06-29 00:00:00 Screening for harley gnant neoplasm of cervix (procedure) [code = 309388664] Fermin Torres Encounters Start Date/Time End Date/Time Encounter Type Admission Type Attendi RUST Care Department Encounter ID Source 2018-02-13 11:47:00 2018-02-13 23:59:00 Outpatient Elliot Maciel [id number] 2017-12-17 05:51:00 2017-12-19 11:41:00 Discharged Inpatient (obs) 1 AMRIT DUNN [facility] [id number] [facility] 2017-10-20 14:05:00 2017-10-20 17:45:00 Departed Emergency Room 1 VERONIKA FIELDS [facility] [id number] [facility] 2017-03-06 17:26:00 2017-03-31 23:59:00 Discharged Recurring [facility] [id number] [facility] 2017-03-22 06:02:00 2017-03-22 08:28:00 Departed Emergency Room [facility] [id number] [facility] 2017-01-31 07:23:00 2017-02-28 23:59:00 Discharged Recurring [facility] [id number] [facility] 2017-01-17 15:58:00 2017-01-29 23:59:00 Discharged Recurring [facility] [id number] [facility] 2016-12-27 13:48:00 2016-12-28 13:04:00 Discharged Inpatient (obs) VIKTORIYA AGUILAR [facility] [id number] [facility] 2015-10-21 11:57:00 2015-10-21 23:59:00 Outpatient Elliot Maciel [id number] Results Test Description Test Time Test Comments Results Result Comments Source CT ABDOMEN/PELVIS WO 2020-02-04 09:06:00 [facility] 1980 Sex: F [place] [address] Patient Name: JENNA WORTHY MR #: [id number] : 1980 Age/Sex: 39/F Req #: [id number] [facility] Physician: MINDY COHEN MD Ordered by: ADORE RIVAS MD Report #: [id number] Location: MED/SURG2 Room/Bed: [facility] Procedure: [id number] CT/CT ABDOMEN/PELVIS WO Exam Date: 02/04/20 Exam Time: 1845 REPORT STATUS: Signed EXAM: CT Abdomen and Pelvis WITHOUT intravenous contrast INDICATION: KIDNEY STONE - STONE PROTOCOL PER DR. RIVAS [id number] 1845 Y. COMPARISON: Intravenous pyelogram dated 02/03/[address] dated 12/17/2017 TECHNIQUE: Abdomen and pelvis were scanned utilizing a multidetector helical scanner from the lung base to the pubic symphysis without administration of IV contrast. Coronal and sagittal reformations were obtained. Routine technique was performed. IV CONTRAST: None ORAL CONTRAST: None COMPLICATIONS: None RADIATION DOSE: Total DLP: 790 mGy*cm Dose modulation, iterative recons truction, and/or weight based adjustment of the mA/kV was utilized to reduce the radiation dose to as low as reasonably achievable. FINDINGS: LOWER THORAX: Normal. HEPATOBILIARY: No focal hepatic lesions. No biliary ductal dilatation. The gallbladder appears unremarkable. SPLEEN: No splenomegaly. PANCREAS: No focal masses or ductal dilatation. ADRENALS: No adrenal nodules. KIDNEYS/URETERS: There are multiple bilateral lower pole renal calculus. The left interpolar region there is a 2 mm calculus. In the right lower pole there are 2 adjacent calculi measuring 4 and 3 mm. Within the distal left ureter there is a 4 mm calculus with mild proximal dilatation of the ureter and mild left hydronephrosis. Intermittent prominence of the right ureter and right renal pelvis is noted, nonspecific. PELVIC ORGANS/BLADDER: Bladder is unremarkable. Uterus is surgically absent. Left ovarian hypodense cyst is noted. PERITONEUM / RETROPERITONEUM: No free air or fluid. LYMPH NODES: No lymphadenopathy. VESSELS: Unremarkable. GI TRACT: Limited evaluation. Stomach is moderately distended and unremarkable. Moderate colonic stool burden is noted. Normal appendix is noted. Negative for bowel obstruction or surrounding inflammatory changes. BONES AND SOFT TISSUES: No acute osseous abnormality. Moderate focal degenerative changes noted at L5-S1. No suspicious lytic or blastic lesion is identified. IMPRESSION: 1. 4 mm left distal ureteral stone. Mild left hydroureteronephrosis is noted. No surrounding inflammatory changes are noted. Given the intravenous pyelogram demonstrating antegrade passage of contrast distal to the stone there is likely partial or intermittent obstruction of the ureter. 2. Nonobstructing bilateral lower pole renal calculi. Signed by: Jonathan Hughes MD on 02/04/2020 9:19 AM Dictated By: JONATHAN HUGHES MD 8 Transcribed By: LISA MONREAL on 02/04/20918 COPY TO: ADORE RIVAS MD INTRAVENOUS PYELOGRAM (IVP) 2020-02-03 17:05:00 [facility] : 1980 Sex: F [place] [address] Patient Name: JENNA WORTHY MR #: [id number] : 1980 Age/Sex: 39/F Req #: [id number] [facility] Physician: MINDY COHEN MD Ordered by: YUMIKO RIVAS MD Report #: [id number] Location: [facility] Room/Bed: [facility] Procedure: [id number] DX/INTRAVENOUS PYELOGRAM (IVP) Exam Date: 02/03/20 Exam Time: 0900 REPORT STATUS: Signed EXAM: Intravenous Pyelogram INDICATION: Ureteral calculus, hydronephrosis COMPARISON: KUB 02/01/2020 FINDINGS: PROCESS SAFETY MANAGER: Left lower pole stones measure up to 3mm. Right lower pole stones measure up to 4mm. No ureteral calculi. Pelvic phleboliths Intravenous pyelogram: Contrast fills the collecting system and both ureters with complete opacification. No hydronephrosis or hydroureter. Bladder fills normally with contrast. IMPRESSION: Bilateral lower pole renal calculi as above. Otherwise, normal intravenous pyelogram. Signed by: Joana Mcwilliams MD on 02/03/2020 5:07 PM Dictated By: JOANA MCWILLIAMS MD Electron ically Signed By: JOANA MCWILLIAMS MD on 02/03/201706 Transcribed By: KHUSHBOO on 02/03/201706 COPY TO: YUMIKO RIVAS MD ABDOMEN-1VIEW ([facility]) 2020-02-01 09:20:00 [facility] : 1980 Sex: F [place] [address] Patient Name: JENNA WORTHY MR #: [id number] : 1980 Age/Sex: 39/F Req #: [id number] Adm Physician: MINDY COHEN MD Ordered by: YUMIKO RIVAS MD Report #: [id number] Location: MED/SURG Room/Bed: [facility] Procedure: [id number] DX/ABDOMEN-1VIEW ([facility]) Exam Date: 02/01/20 Exam Time: 0859 REPORT STATUS: Signed EXAM: Abdomen Radiograph 1 View(s) INDICATION: Follow-up of left distal ureteral stone. Kidney stones. Abdominal pain suspicious for kidney stone. COMPARISON: January 31, 2020. Abdominal radiograph on . Abdomen and pelvic CT on 12/17/2017. FINDINGS: Nonobstructive bowel gas pattern. Moderate stool burden in the colon. Punctate calcifications projecting over the left kidney represents known nephrolithiasis. Obstructive left ureteral stone seen on comparison CT is not well appreciated by plain radiograph. The bones are normal. Soft tissues are normal. IMPRESSION: Left nonobstructive nephrolithiasis. No ureteral stone identified. Signed by: Dr. Yuriy Reyna M.D. on 02/01/2020 9:23 AM Dictated By: YURIY REYNA MD, MD 2 Transcribed By: KHUSHBOO on 02/01/20922 COPY TO: YUMIKO RIVAS MD ABDOMEN-1VIEW ([facility]) 2020-01-31 11:22:00 [facility] : 1980 Sex: F [facility] [address] [place] [address] Patient Name: JENNA WORTHY MR #: [id number] : 1980 Age/Sex: 39/F Req #: [id number] Adm Physician: MINDY COHEN MD Ordered by: JAKE RIVERA MD Report #: [id number] Location: MED/SURG Room/Bed: [facility] Procedure: [id number] DX/ABDOMEN-1VIEW ([facility]) Exam Date: 01/31/20 Exam Time: 1020 REPORT STATUS: Signed EXAM: Abdomen Radiograph 1 View(s) INDICATION: Abdominal pain suspicious for kidney stone. COMPARISON: Abdominal radiograph on . Abdomen and pelvic CT on 12/17/2017. FINDINGS: Nonobstructive bowel gas pattern. Moderate stool burden in the colon. Punctate calcifications projecting over the left kidney represents known nephrolithiasis. Obstructive left ureteral stone seen on comparison CT is not well appreciated by plain radiograph. The bones are normal. Soft tissues are normal. IMPRESSION: Left nonobstructive nephrolithiasis. No ureteral stone identified. Signed by: Marquez Espana MD on 01/31/2020 11:43 AM Dictated By: MARQUEZ ESPANA MD 1143 Transcribed By: KHUSHBOO on 01/31/20 1143 COPY TO: JAKE RIVERA MD - CT ABD PELVIS W/O CONT 2019-09-22 22:15:00 N jimmy: JENNA WORTHY [facility] : 1980 Age/S: 39 / F [address] Unit #: [id number] Loc: [place] [address] Phys: Joon Barlow MD Acct: [id number] Dis Date: Status: PRE ER PHONE #: [phone] Exam Date: 09/22/2019 2203 FAX #: [phone] Reason: bilateral flank pain EXAMS: CPT CODE: [id number] CT ABD PELVIS W/O CONT 52157 AFTER HOURS SERVICE ON: 09/22/2019 10:[address] Scan of the Abdomen and Pelvis Without Contrast Location Code M12 History: bilateral flank pain Technique: Axial and reconstructed coronal scans were performed on a helical scanner pre oral and IV contrast. Study is limited secondary to lack of oral and IV contrast. One or more of the following dose reduction techniques were used: Automated exposure control, adjustment of the mA and/or kV according to patient size, and/or utilization of iterative reconstruction technique. Findings: LIVER: No significant findings. GALLBLADDER/BILIARY: No significant findings. PANCREAS: No significant findings. SPLEEN: No significant findings. ADRENALS: No significant findings. KIDNEYS: There is mild bilateral hydronephrosis. On the right, there are two distal ureteral calculi measuring 2 mm each at the level of the sacroiliac joint. Similarly, on the left, there are three distal ureteral calculi at the level of the sacroiliac joint measuring 2 to 4 mm. There are several bilateral nonobstructing renal calculi. Two nonobstructing calculi are seen in the right kidney and five and the left kidney measuring up to 3 mm. BLADDER: No significant findings. GASTROINTESTINAL: No significant findings. The appendix is unremarkable. OTHER: Uterus is absent.. IMPRESSION: Mild bilateral hydronephrosis due to several distal ureteral calculi measuring up to 4 mm. Several bilateral nonobstructing intrarenal calculi. PAGE 1 Signed Report (CONTINUED) Name: JENNA WORTHY [facility] : 1980 Age/S: 39 / F [address] Unit #: [id number] Loc: [place] [address] Phys: Joon Barlow MD Acct: [id number] Dis Date: Status: PRE ER PHONE #: [phone] Exam Date: 09/22/20192202 FAX #: [phone] Reason: bilateral flank pain EXAMS: CPT CODE: [id number] CT ABD PELVIS W/O CONT 25293 <Continued> at 2215 Reported and signed by: Charla Lawson M.D. CC: Joon Barlow MD; J Carlos Soto III, MD Technologist:YOKASTA EUGENE RT(R),CT CTDI: DLP: Trnscb Date/Time: 09/22/2019 (2214) [email or web address] Orig Print D/T: S: 09/22/2019 (8682) PAGE 2 Signed Report COMPREHENSIVE METABOLIC PANEL 2019-09-22 22:10:00 Test Item SODIUM (test code = NA) 141 mmol/L 136-145 N POTASSIUM (test code = K) 3.8 mmol/L 3.5-5.1 N CHLORIDE (test code = CL) 105 mmol/L 101-109 N CARBON DIOXIDE (test code = CO2) 34.7 mmol/L 21-32 H ANION GAP (test code = GAP) 5 mmol/L 10-20 L GLUCOSE (test code = GLU) 100 mg/dL 74-106 N BLOOD UREA NITROGEN (test code = BUN) 13 mg/dL 3-21 N CREATININE (test code = CREAT) 1.08 mg/dL 0.55-1.3 N BUN/CREATININE RATIO (test code = BUN/CREA) 12.0 10-20 N TOTAL PROTEIN (test code = PROT) 6.7 g/dL 6.5-8.4 N ALBUMIN (test code = ALB) 3.2 g/dL 3.4-4.8 L GLOBULIN (test code = GLOB) 3.5 G/DL 1-10 N ALBUMIN/GLOBULIN RATIO (test code = A/G) 0.91 RATIO 0.75-1.50 N CALCIUM (test code = CA) 8.5 mg/dL 8.4-10.2 N BILIRUBIN TOTAL (test code = BILT) 0.30 mg/dL 0.0-1.0 N SGOT/AST (test code = AST) 14 U/L 6-32 N SGPT/ALT (test code = ALT) 21 U/L 12-78 N N ote: Change in REFERENCE RANGE due to new reagent method. ALKALINE PHOSPHATASE TOTAL (test code = ALKP) 60 U/L 38-126 N COMPREHENSIVE METABOLIC [id number] 22:06:00* Test Item Value Reference Range Interpretation Comments SODIUM (test code = NA) 141 mmol/L 136-145 N POTASSIUM (test code = K) 3.8 mmol/L 3.5-5.1 N CHLORIDE (test code = CL) 105 mmol/L 101-109 N CARBON DIOXIDE (test code = CO2) 34.7 mmol/L 21-32 H ANION GAP (test code = GAP) 5 mmol/L 10-20 L GLUCOSE (test code = GLU) 100 mg/dL 74-106 N BLOOD UREA NITROGEN (test code = BUN) 13 mg/dL 3-21 N CREATININE (test code = CREAT) 1.08 mg/dL 0.55-1.3 N BUN/CREATININE RATIO (test code = BUN/CREA) 12.0 10-20 N TOTAL PROTEIN (test code = PROT) gram/dL 6.4-8.2 ALBUMIN (test code = ALB) g/dL 3.4-5.0 GLOBULIN (test code = GLOB) g/dL 2.7-4.2 ALBUMIN/GLOBULIN RATIO (test code = A/G) 0.75-1.50 CALCIUM (test code = CA) 8.5 mg/dL 8.4-10.2 N BILIRUBIN TOTAL (test code = BILT) mg/dL 0.2-1.2 SGOT/AST (test code = AST) IUnit/L 15-37 SGPT/ALT (test code = ALT) U/L 10-69 ALKALINE PHOSPHATASE TOTAL (test code = ALKP) IUnit/L 45-117 CBC W/AUTO [id number] 21:57:00* Test Item Value Reference Range Interpretation Comments WHITE BLOOD CELL (test code = WBC) 6.8 K/mm3 4.5-12.5 N RED BLOOD CELL (test code = RBC) 4.45 mill/mm3 3.7-5.2 N HEMOGLOBIN (test code = HGB) 13.5 gram/dL 11.5-15.5 N HEMATOCRIT (test code = HCT) 40.2 % 36.0-46.0 N MEAN CELL VOLUME (test code = MCV) 90.3 fL 80-98 N MEAN CELL HGB (test code = MCH) 30.3 picogram 27.0-33.0 N MEAN CELL HGB CONCETRATION (test code = MCHC) 33.6 gram/dL 33.0-36. 0 N RED CELL DISTRIBUTION WIDTH (test code = RDW) 12.0 % 11.6-16. 2 N RED CELL DISTRIBUTION WIDTH SD (test code = RDW-SD) 39.9 fL 37 .0-51.0 N PLATELET COUNT (test code = PLT) 229 K/mm3 150-450 N MEAN PLATELET VOLUME (test code = MPV) 10.1 fL 6.7-11.0 N NEUTROPHIL % (test code = NT%) 58.7 % 39.0-69.0 N LYMPHOCYTE % (test code = LY%) 32.4 % 25.0-55.0 N MONOCYTE % (test code = MO%) 7.2 % 0.0-10.0 N EOSINOPHIL % (test code = EO%) 1.6 % 0.0-5.0 N BASOPHIL % (test code = BA%) 0.1 % 0.0-1.0 N NEUTROPHIL # (test code = NT#) 3.96 K/mm3 1.8-7.7 N LYMPHOCYTE # (test code = LY#) 2.19 K/mm3 1.0-5.0 N MONOCYTE # (test code = MO#) 0.49 K/mm3 0-0.8 N EOSINOPHIL # (test code = EO#) 0.11 K/mm3 0.0-0.5 N BASOPHIL # (test code = BA#) 0.01 K/mm3 0.0-0.2 N MANUAL DIFF REQUIRED (test code = MDIFF) NO URINALYSIS [id number] 21:08:00* Test Item Value Reference Range Interpretation Comments UA COLOR (test code = COLU) YELLOW YELLOW UA APPEARANCE (test code = APPU) HAZY CLEAR A UA GLUCOSE DIPSTICK (test code = DGLUU) norm mg/dL NEGATIVE UA BILIRUBIN DIPSTICK (test code = BILU) NEGATIVE mg/dL NEGATIVE UA KETONE DIPSTICK (test code = KETU) neg mg/dL NEGATIVE UA SPECIFIC GRAVITY (test code = SGU) 1.010 1.001-1.035 UA BLOOD DIPSTICK (test code = MARTY) 250 (4+) Vicente/uL NEGATIVE A UA PH DIPSTICK (test code = DONNY) 7.0 5.0-8.0 UA PROTEIN DIPSTICK (test code = PROU) 30 (1+) mg/dL Neg-15 A UA UROBILINIOGEN DIPSTICK (test code = URO) norm mg/dL 0.0-0.2 UA NITRITE DIPSTICK (test code = CARLOS) NEGATIVE NEGATIVE UA LEUKOCYTE ESTERASE DIPSTICK (test code = LEUU) 25 Tato/uL (Tra ce) uL NEGATIVE A UA WBC (test code = WBCU) 0-5 per HPF 0-5 UA RBC (test code = RBCU) >20 per HPF 0-5 UA EPITHELIAL CELLS (test code = EPIU) Few (2-5/hpf) per HPF Few UA BACTERIA (test code = BACU) TRACE per HPF NONE Urine Source? Clean CatchUR HCG [id number] 21:08:00* Test Item Value Reference Range Interpretation Comments UR HCG QUAL (test code = HCGQLU) NEGATIVE This HCGQL test is NOT applicable for MALE patients.Check with nurse about probable order error.If Tumor Marker Test needed, nurse should order test "HCGTU"(Test #[id number]) Urine Source? Clean CatchURINALYSIS [id number] 21:05:00* Test Item Value Reference Range Interpretation Comments UA COLOR (test code = COLU) YELLOW YELLOW UA APPEARANCE (test code = APPU) HAZY CLEAR A UA GLUCOSE DIPSTICK (test code = DGLUU) norm mg/dL NEGATIVE UA BILIRUBIN DIPSTICK (test code = BILU) NEGATIVE mg/dL NEGATIVE UA KETONE DIPSTICK (test code = KETU) neg mg/dL NEGATIVE UA SPECIFIC GRAVITY (test code = SGU) 1.010 1.001-1.035 UA BLOOD DIPSTICK (test code = MARTY) 250 (4+) Vicente/uL NEGATIVE A UA PH DIPSTICK (test code = DONNY) 7.0 5.0-8.0 UA PROTEIN DIPSTICK (test code = PROU) 30 (1+) mg/dL Neg-15 A UA UROBILINIOGEN DIPSTICK (test code = URO) norm mg/dL 0.0-0.2 UA NITRITE DIPSTICK (test code = CARLOS) NEGATIVE NEGATIVE UA LEUKOCYTE ESTERASE DIPSTICK (test code = LEUU) 25 Tato/uL (Tra ce) uL NEGATIVE A UA WBC (test code = WBCU) per HPF 0-5 UA RBC (test code = RBCU) per HPF 0-5 UA EPITHELIAL CELLS (test code = EPIU) per HPF Few UA BACTERIA (test code = BACU) per HPF NONE Urine Source? Clean CatchUR HCG [id number] 21:05:00* Test Item Value Reference Range Interpretation Comments UR HCG QUAL (test code = HCGQLU) Urine Source? Clean CatchRENAL SCAN W/AKMCP4444-14-09 21:12:00 [facility] [address] [address] Patient Name: JENNA WORTHY MR #: [id number] : 1980 Age/Sex: 37/F Req #: [id number] Adm Physician: Ordered by: YUMIKO RIVAS MD Report #: [id number] Location: [place] Room/Bed: Procedure: [id number] NM/RENAL SCAN W/LASIX Exam Date: 02/24/18 Exam Time: 0900 REPORT STATUS: Signed Renal Scan Lasix Washout Clinical information: 37 F with renal calculi bilaterally. Stent placed 11/2017-01/2018 but removed because caused ureteral swelling Technique: Following intravenous administration of 11 mCi of Tc-99m MAG3, dy namic images of the kidneys in the posterior projection were obtained through 32 minutes. Lasix 40 mg was administered intravenously at 12 minutes post inj ection of the tracer. Report: Left kidney: Perfusion of the left kidne y is prompt. The kidney has a normal reniform shape. Extraction of tracer fr om the blood pool is normal. Clearance of tracer from the renal parenchyma is prompt. The pelvicalyceal system is very mildly dilated. Increased pooling of tracer within the pelvicalyceal system is seen. Drainage of tracer from th e pelvicalyceal system is prompt and adequate prior to administration of Lasix . No significant stasis of tracer is seen within the left ureter. Right kidney: Perfusion of the right kidney is prompt. The kidney has a normal kerri form shape. Extraction of tracer from the blood pool is normal. Clearance of tracer from the renal parenchyma is prompt. The pelvicalyceal system is very mildly dilated. Increased pooling of tracer within the pelvicalyceal system is seen. Drainage of tracer from the pelvicalyceal system is prompt and adequ ate prior to administration of Lasix. No significant stasis of tracer is seen within the right ureter. Differential renal function: The left kidney cont ributes 53% of total renal function and the right kidney contributes 47% (norm al 43-57%). Impression: 1. The function of the left kidney is general ly normal. No hydronephrosis is present. No physiologically significant obst ruction of the renal collecting system is present. 2. The function of the right kidney is generally normal. No hydronephrosis is present. No physiolog ically significant obstruction of the renal collecting system is present. 3. The differential renal function is preserved. Signed by: Dr. Eva amezcua M.D. on 02/24/2018 9:18 PM Dictated By: EVA MOREIRA MD 17 Transcribed By: KHUSBHOO on 02/24/182117 COPY TO: YUMIKO RIVAS MD INTRAVENOUS PYELOGRAM (IVP)2018-02-07 19:30:00 [address] [place] [address] Patient Name: JENNA WORTHY MR #: [id number] : 1980 Age/Sex: 37/F Req #: [id number] Adm Physician: VICKI MONREAL MD Ordered by: YUMIKO RIVAS MD Report #: [id number] Location: MED/SURG2 Room/Bed: [facility] Procedure: [id number] DX/INTRAV ENOUS PYELOGRAM (IVP) Exam Date: Exam Time: REPORT STATUS: Signed EXAM: INTRAVENO US PYELOGRAM (IVP) INDICATION: Renal stone/pain on the left COMPARISON: CT of the abdomen and pelvis without IV contrast December 17, 2017 TECHNIQUE: A telephone service adviser radiograph of the abdomen was obtained. 100cc of Isovue 300 were adminis tered intravenously and multiple sequential images of the abdomen were obtaine d. FINDINGS: Health And Safety Advisor abdominal radiograph: Nonobstructive bowel gas pa ttern. There is a cluster of small stones measuring up to 6 mm projected over the left renal shadow. Sclerotic densities in the right hip and left femur a re most likely bone islands. KIDNEYS: Prompt symmetric enhancement of t he renal parenchyma. Mild delayed excretion of contrast from the left kidne y compared to the right. The left kidney is enlarged compared to the right. There is mild left hydroureteronephrosis. The left ureter is opacified through its entire course. There is a cluster of small stones measuring up to 6 mm pr ojected over the left renal shadow. Normal appearance of the right kidney . URETERS: Mild left hydroureter. No filling defects identified. Normal r ight ureter. BLADDER: Normal bladder contour. Mild post void residual. IMPRESSION: There is mild left hydroureteronephrosis. A ureteral stone is n ot identified. There is a small cluster of stones projected over the left kidn ey on telephone service adviser view. The left renal shadow is enlarged compared to the right and after the administration of contrast there is mild delayed excretion of c ontrast and a thin curvilinear contrast collection along the medial aspect of the kidney, which could represent subcapsular urine/contrast. These findings c ould be better evaluated by CT. Signed by: Dr. Laura lora M.D. on 02/07/2018 7:48 PM Dictated By: LAURA OCONNOR MD Electron ically Signed By: LAURA OCONNOR MD on 02/07/181947 Transcribed By: KHUSHBOO on 02/07/181947 COPY TO: YUMIKO RIVAS MD ABDOMEN-1VIEW (KUB) 2018-01-30 15:49:00 [facility] [address] [address] Patient Name: JENNA WORTHY MR #: [id number] : 1980 Age/Sex: 37/F Req #: [id number] Adm Physician: Ordered by: YUMIKO RIVAS MD Report #: [id number] Location: [facility] Room/Bed: Procedure: [id number] DX/ABDOME N-1VIEW (KUB) Exam Date: 01/30/18 Exam Time: 1540 REPORT STATUS: Signed Exam: KUB. Clinical History: Calculus of ureter Comparison: 12/17/2017 Find ings: Frontal view of the abdomen demonstrates a nonobstructive bowel gas singh aj with moderate retained stool. Small stones over the lower left and right k idney.Left ureteral catheter in place. Impression: Small stones over the lower left and right kidney.Left ureteral catheter in place. Signed by : Dr. Yuriy Reyna M.D. on 01/30/2018 4:01 PM Dictated By: YURIY Good MD 160 Transcribe d By: KHUSHBOO on 01/30/18 1601 COPY TO: YUMIKO RIVAS MD Urine Wpolyhz0283-21-74 06:10:00* Test Item Value Reference Range Interpretation Comments Urine Culture (test code = 630-4) Organism: STAPHYLOCOCCUS EPIDERMI DIS [facility]odium Tsvis1625-68-44 05:56:00* Test Item Value Reference Range Interpretation Comments Sodium Level (test code = 2951-2) 142 136-145 [facility]ham[facility]assium Pwlvz5319-26-46 05:56:00* Test Item Value Reference Range Interpretation Comments Potassium Level (test code = 2823-3) 4.0 3.5-5.1 [facility]hamChloride Tdase3279-53-54 05:56:00* Test Item Value Reference Range Interpretation Comments Chloride Level (test code = 2075-0) 108 98-107 H [facility] BrenhamCarbon Dioxide Eidfv8331-44-64 05:56:00* Test Item Value Reference Range Interpretation Comments Carbon Dioxide Level (test code = 2028-9) 26 22-29 [facility] BrenhamAnion Zbs2345-77-64 05:56:00* Test Item Value Reference Range Interpretation Comments Anion Gap (test code = 28048-7) 12.0 8-16 [facility] BrenhamBlood Urea Avtauewu6553-77-37 05:56:00* Test Item Value Reference Range Interpretation Comments Blood Urea Nitrogen (test code = 3094-0) 13 7-26 [facility] BrenhamCreatinine2018-09-20 05:56:00* Test Item Value Reference Range Interpretation Comments Creatinine (test code = 2160-0) 0.72 0.57-1.11 [facility]hamBUN/Creatinine Syyzb9271-78-02 05:56:00* Test Item Value Reference Range Interpretation Comments BUN/Creatinine Ratio (test code = 3097-3) 18 6-25 [facility] BrenhamEstimat Glomerular Filtration Rate 2017-12-19 05:56:00* Test Item Value Reference Range Interpretation Comments Estimat Glomerular Filtration Rate (test code = 297057531) 60- >60 Ranges were taken from the National Kidney Disease Education Program and the [facility] Kid[facility] Foundation literature.Reference ranges:60 or greater: Ysliac97-86 ( for 3 consecutive months): Chronic kidney disease 15 or less: Kidney failureBaylor Scott & [facility] – BrenhamGlucose Fwget8377-96-04 05:56:00* Test Item Value Reference Range Interpretation Comments Glucose Level (test code = GUK8162) 98 74-118 [facility] BrenhamCalcium Kgpzq5276-00-71 05:56:00* Test Item Value Reference Range Interpretation Comments Calcium Level (test code = 90900-9) 8.6 8.4-10.2 [facility] BrenhamMagnesium Bmmgz0470-29-15 05:56:00* Test Item Value Reference Range Interpretation Comments Magnesium Level (test code = 02301-3) 1.5 1.3-2.1 [facility] BrenhamWhite Blood Xfivz3462-47-00 05:22:00* Test Item Value Reference Range Interpretation Comments White Blood Count (test code = 6690-2) 10.72 4.8-10.8 [facility] BrenhamRed Blood Kaynq9444-73-77 05:22:00* Test Item Value Reference Range Interpretation Comments Red Blood Count (test code = 789-8) 3.92 3.6-5.1 [facility] BrenhamHemoglobin2018-09-20 05:22:00* Test Item Value Reference Range Interpretation Comments Hemoglobin (test code = 25082-2) 12.3 12.0-16.0 [facility] BrenhamHematocrit2018-09-20 05:22:00* Test Item Value Reference Range Interpretation Comments Hematocrit (test code = 4544-3) 37.8 34.2-44.1 [facility] BrenhamMean Corpuscular Kydreu6584-84-55 05:22:00* Test Item Value Reference Range Interpretation Comments Mean Corpuscular Volume (test code = 787-2) 96.4 81-99 [facility] BrenhamMean Corpuscular Kexiuolxry9002-03-52 05:22:00* Test Item Value Reference Range Interpretation Comments Mean Corpuscular Hemoglobin (test code = 785-6) 31.4 28-32 [facility] Corp[facility] Hemoglobin Concent 2017-12-19 05:22:00* Test Item Value Reference Range Interpretation Comments Mean Corpuscular Hemoglobin Concent (test code = 786-4) 32.5 31-35 [facility] BrenhamRed Cell Distribution Awqfb8384-01-66 05:22:00* Test Item Value Reference Range Interpretation Comments Red Cell Distribution Width (test code = 95646-6) 12.9 11.7 -14.4 [facility] BrenhamPlatelet Trabq5573-59-67 05:22:00* Test Item Value Reference Range Interpretation Comments Platelet Count (test code = 777-3) 233 140-360 [facility] BrenhamNeutrophils (%) (Auto)2017-12-19 05:22:00 * Test Item Value Reference Range Interpretation Comments Neutrophils (%) (Auto) (test code = 26162-5) 60.9 38.7-80.0 [facility] BrenhamLymphocytes (%) (Auto)2017-12-19 05:22:00 * Test Item Value Reference Range Interpretation Comments Lymphocytes (%) (Auto) (test code = 736-9) 31.9 18.0-39.1 [facility] BrenhamMonocytes (%) (Auto)2017-12-19 05:22:00* Test Item Value Reference Range Interpretation Comments Monocytes (%) (Auto) (test code = 5905-5) 6.0 4.4-11.3 [facility]hamEosinophils (%) (Auto)2017-12-19 05:22:00 * Test Item Value Reference Range Interpretation Comments Eosinophils (%) (Auto) (test code = 713-8) 0.6 0.0-6.0 [facility]hamBasophils (%) (Auto)2017-12-19 05:22:00* Test Item Value Reference Range Interpretation Comments Basophils (%) (Auto) (test code = 706-2) 0.3 0.0-1.0 [facility] BrenhamIM GRANULOCYTES %2017-12-19 05:22:00* Test Item Value Reference Range Interpretation Comments IM GRANULOCYTES % (test code = IM GRANULOCYTES %) 0.3 0.0- 1.0 [facility]hamNeutrophils # (Auto)2017-12-19 05:22:00* Test Item Value Reference Range Interpretation Comments Neutrophils # (Auto) (test code = 751-8) 6.5 2.1-6.9 [facility] BrenhamLymphocytes # (Auto)2017-12-19 05:22:00* Test Item Value Reference Range Interpretation Comments Lymphocytes # (Auto) (test code = 60708-9) 3.4 1.0-3.2 H [facility] BrenhamMonocytes # (Auto)2017-12-19 05:22:00* Test Item Value Reference Range Interpretation Comments Monocytes # (Auto) (test code = 742-7) 0.6 0.2-0.8 [facility] BrenhamEosinophils # (Auto)2017-12-19 05:22:00* Test Item Value Reference Range Interpretation Comments Eosinophils # (Auto) (test code = 711-2) 0.1 0.0-0.4 [facility] BrenhamBasophils # (Auto)2017-12-19 05:22:00* Test Item Value Reference Range Interpretation Comments Basophils # (Auto) (test code = 704-7) 0.0 0.0-0.1 [facility] BrenhamAbsolute Immature Granulocyte (auto 2017-12-19 05:22:00* Test Item Value Reference Range Interpretation Comments Absolute Immature Granulocyte (auto (zeinab t code = Absolute Immature Granulocyte (auto) 0.03 0-0.1 [facility] BrenhamB-Type Natriuretic Sszrxhd2867-20-95 04:23:00* Test Item Value Reference Range Interpretation Comments B-Type Natriuretic Peptide (test code = 26582-7) 134.4 0-100 H [facility] BrenhamCreatine Kinase ZX0463-16-61 04:23:00* Test Item Value Reference Range Interpretation Comments Creatine Kinase MB (test code = 95520-0) 3.00 0-5.0 [facility] BrenhamTroponin P6704-27-26 04:23:00* Test Item Value Reference Range Interpretation Comments Troponin I (test code = VIW1912) -0.001 0-0.300 [facility] BrenhamCreatine Wnhghx6463-03-86 04:15:00* Test Item Value Reference Range Interpretation Comments Creatine Kinase (test code = 2157-6) 90 29-168 [facility] BrenhamABDOMEN-1VIEW (KUB)2017-12-17 12:53:00 [place] [address] Patient Name: JENNA WORTHY MR #: [id number] : Age/Sex: 37/F Req #: [id number] Adm Physician: AMRIT ROSADO MD Ordered by: YUMIKO RIVAS MD Report #: [id number] Location: [place] D/SURG3 Room/Bed: [facility] Procedure: [id number] DX/ABDOM EN-1VIEW (KUB) Exam Date: 12/17/17 Exam Time: 1135 REPORT STATUS: Signed EXAMINATION: ABDOMEN-1VIEW (KUB) INDICAT ION: Renal stone COMPARISON: CT abdomen/pelvis 12/17/17. FINDINGS : A 4 mm left ureteral stone projects at the L3 level, similar to position on same day CT scan. Punctate bilateral renal stones as noted on CT. Non-obs tructive bowel gas pattern. IMPRESSION: Similar position of 4 mm left ur eteral stone compared to same day CT. Punctate bilateral renal stones, as noted on prior CT. Signed by: Dr. Debbie Wheat MD on 12/17/2017 12:59 PM Dictated By: DEBBIE WHEAT MD 1259 COPY TO: YMUIKO RIVAS MD CHEST SINGLE (PORTABLE)2017-12-17 05:41:00 [place] [address] Patient Name: JENNA WORTHY MR #: [id number] : 1980 Age/Sex: 37/F Req #: [id number] Adm Physician: Ordered by: RONALDO GOINS MD Report #: [id number] Location: ER Room/Bed: Procedure: [id number] DX/CHEST SINGLE (PORTABLE) Exam Date: 12/17/17 Exam Time: 424 REPORT STATUS: S igned EXAM: CHEST SINGLE (PORTABLE), AP 1 view INDICATION: Left flank pain, hematuria COMPARISON: None FINDINGS: LINES/TUBES: None LUNGS: No consolidations or edema. PLEURA: No effusions or pneumothorax. HEART AND MEDIASTINUM: Normal size and contour. BONES AND SOFT TISSUES: No acute findings. IMPRESSION: No acute thoracic abnormality. Signed b y: Dr. Laura Oconnor M.D. on 12/17/2017 5:41 AM Dictated By: LAURA IRVIN MD Transcrib ed By: KHUSHBOO on 12/17/1741 COPY TO: RONALDO GOINS MD CT ABDOMEN/PELVIS PJ3269-61-15 04:48:00 [place] [address] Patient Name: JENNA WORTHY MR #: [id number] : 1980 Age/Sex: 37/F Req #: [id number] Adm Physician: Ordered by: RONALDO GOINS MD Report #: [id number] Location: ER Room/Bed: Procedure: [id number] CT/CT ABDOMEN/PELVIS WO Exam Ramírez e: 12/17/17 Exam Time: 0425 REPORT STATUS: Sign ed EXAM: CT ABDOMEN AND PELVIS without IV CONTRAST INDICATION: Left flank pain, hematuria COMPARISON: CT of the abdomen and pelvis October 20, 2017 TECH NIQUE: The abdomen and pelvis were scanned using a multidetector helical scann er. Coronal and sagittal reformations were obtained. Dose modulation, iterativ e reconstruction, and/or weight based adjustment of the mA/kV was utilized to reduce the radiation dose to as low as reasonably achievable. Renal stone prot ocol performed. IV Contrast: None Oral Contrast: None CTDIvol has been rev iewed. It is below the limits set by the Radiation Protocol Committee (RPC). FINDINGS: LOWER THORAX: No consolidations LIVER: No masses BILIARY: Normal gallbladder. No ductal dilation. SPLEEN: No masses PANCREAS: No masses ADRENALS: No nodules RIGHT KIDNEY: Stable punctate stones in th e inferior pole calyx. No hydronephrosis. No ureteral stones. LEFT KIDNE Y: There is a new 3 x 4 mm stone in the proximal left ureter at the L3 level r esulting in mild hydroureteronephrosis. There are multiple stones throughout t he left kidney measuring up to 3 mm. GI TRACT: No wall thickening or obstru ction. Normal appendix. VESSELS: Incidental duplicated IVC. PERITONE UM/RETROPERITONEUM: No free air or fluid LYMPH NODES: No lymphadenopathy REPRODUCTIVE ORGANS: The uterus and right ovary are not visualized. BLADDER: D ecompressed. SOFT TISSUES: Normal BONES: Stable bone island right iliac w ing. IMPRESSION: There is a new 3 x 4 mm stone in the proximal left urete r at the L3 level resulting in mild hydroureteronephrosis. Bilateral neph rolithiasis. Signed by: Dr. Laura Oconnor M.D. on 12/17/2017 4:54 AM Dictated By: LAURA OCONNOR MD Transcribed By: KHUSHBOO on 12/17/17453 COPY TO: RONALDO GOINS MD Total Bhvfcjrhk4155-35-20 04:25:00* Test Item Value Reference Range Interpretation Comments Total Bilirubin (test code = 1975-2) 0.4 0.2-1.2 [facility] BrenhamAspartate Amino Transf (AST/SGOT) 2017-12-17 04:25:00* Test Item Value Reference Range Interpretation Comments Aspartate Amino Transf (AST/SGOT) (test code = Aspartate Amino Transf (AST/SGOT)) 20 5-34 [facility] BrenhamAlanine Aminotransferase (ALT/SGPT) 2017-12-17 04:25:00* Test Item Value Reference Range Interpretation Comments Alanine Aminotransferase (ALT/SGPT) (test code = 1742-6) 20 0-55 [facility] BrenhamTotal Odrdblh2677-19-04 04:25:00* Test Item Value Reference Range Interpretation Comments Total Protein (test code = 2885-2) 7.3 6.5-8.1 [facility] BrenhamAlbumin2018-09-18 04:25:00* Test Item Value Reference Range Interpretation Comments Albumin (test code = 1751-7) 3.7 3.5-5.0 [facility] BrenhamGlobulin2018-09-18 04:25:00* Test Item Value Reference Range Interpretation Comments Globulin (test code = 66499-1) 3.6 2.3-3.5 H [facility] BrenhamAlbumin/Globulin Makni1885-89-11 04:25:00 * Test Item Value Reference Range Interpretation Comments Albumin/Globulin Ratio (test code = 1759-0) 1.0 0.8-2.0 [facility] BrenhamAlkaline Wdvowicyrqz7834-25-49 04:25:00* Test Item Value Reference Range Interpretation Comments Alkaline Phosphatase (test code = 6768-6) 62 40-150 [facility] BrenhamProthrombin Mfnx4476-29-55 04:14:00* Test Item Value Reference Range Interpretation Comments Prothrombin Time (test code = 5902-2) 13.3 11.9-14.5 [facility] BrenhamProthromb Time International Ratio 2017-12-17 04:14:00* Test Item Value Reference Range Interpretation Comments Prothromb Time International Ratio (test code = 6301-6) 1.09 Oral Anticoagulant Therapy INR Values:1. Low Intensity Therapy 1.5 - 2.02 . Moderate Intensity Therapy 2.0 - 3.03. High Intensity Therapy(1) 2.5 - 3. 54. High Intensity Therapy(2) 3.0 - 4.05. Panic Value INR > 5.0 [facility] BrenhamActivated Partial Thromboplast Time 2017-12-17 04:14:00* Test Item Value Reference Range Interpretation Comments Activated Partial Thromboplast Time (test code = 05960-8) 30.1 23.8-35.5 [facility] BrenhamUrine Kxulo1740-40-30 04:08:00* Test Item Value Reference Range Interpretation Comments Urine Color (test code = 5778-6) EVE YELLOW H [facility] BrenhamUrine Jgwsaov4222-84-11 04:08:00* Test Item Value Reference Range Interpretation Comments Urine Clarity (test code = 19985-2) TURBID CLEAR H [facility] BrenhamUrine Specific Cgeihjg2687-48-56 04:08:00 * Test Item Value Reference Range Interpretation Comments Urine Specific [place] (test code = 5811-5) 1.030 1.010-1.02 5 H [facility] BrenhamUrine vF3258-85-31 04:08:00* Test Item Value Reference Range Interpretation Comments Urine pH (test code = 90894-3) 5 5-7 [facility] BrenhamUrine Leukocyte Qnnwhgqc9237-06-00 04:08:00* Test Item Value Reference Range Interpretation Comments Urine Leukocyte Esterase (test code = 5799-2) TRACE NEGATIVE H [facility] BrenhamUrine Dqaohkt0767-69-03 04:08:00* Test Item Value Reference Range Interpretation Comments Urine Nitrite (test code = 50434-7) NEGATIVE NEGATIVE [facility] BrenhamUrine Zisvgmm4163-03-81 04:08:00* Test Item Value Reference Range Interpretation Comments Urine Protein (test code = 5804-0) 2+ NEGATIVE H [facility] BrenhamUrine Glucose (UA)2017-12-17 04:08:00* Test Item Value Reference Range Interpretation Comments Urine Glucose (UA) (test code = 2349-9) NEGATIVE NEGATIVE [facility] BrenhamUrine Nwtssea8288-71-52 04:08:00* Test Item Value Reference Range Interpretation Comments Urine Ketones (test code = 17565-9) NEGATIVE NEGATIVE [facility] BrenhamUrine Hytqblesqnqz8975-32-95 04:08:00* Test Item Value Reference Range Interpretation Comments Urine Urobilinogen (test code = 15207-2) 0.2 0.2-1 [facility] BrenhamUrine Hgpsudkgi5167-24-25 04:08:00* Test Item Value Reference Range Interpretation Comments Urine Bilirubin (test code = 1978-6) NEGATIVE NEGATIVE [facility] BrenhamUrine Kfsdm6721-32-66 04:08:00* Test Item Value Reference Range Interpretation Comments Urine Blood (test code = 16764-7) 4+ NEGATIVE H [facility] BrenhamUrine KGM4441-44-22 04:08:00* Test Item Value Reference Range Interpretation Comments Urine WBC (test code = 5821-4) 6-10 0-5 H [facility] BrenhamUrine UQC0799-69-77 04:08:00* Test Item Value Reference Range Interpretation Comments Urine RBC (test code = 58955-2) 50- 0-5 H [facility] BrenhamUrine Djsljtwe4830-40-69 04:08:00* Test Item Value Reference Range Interpretation Comments Urine Bacteria (test code = 81085-9) FEW NONE [facility] [place]ham[place]rine Epithelial [id number] 04:08:00 * Test Item Value Reference Range Interpretation Comments Urine Epithelial Cells (test code = 25281-0) FEW NONE [facility]ham[facility]rine Qfpok5975-78-32 04:08:00* Test Item Value Reference Range Interpretation Comments Urine Mucus (test code = 8247-9) FEW RARE H [facility] BrenhamCT ABDOMEN/PELVIS [id number] 16:13:00 [place] [address] Patient Name: JENNA WORTHY MR #: [id number] : Age/Sex: 37/F Req #: [id number] Adm Physician: Ordered by: LISSETTE ALBERTS TECHNICAL ILLUSTRATOR Report #: [id number] Location: ER Room/Bed: Procedure: [id number] CT/CT ABDOMEN/PELVIS WO Exam D ate: 10/20/17 Exam Time: 1552 REPORT STATUS: Si gned EXAM: CT Abdomen and Pelvis WITHOUT contrast INDICATION: Right-sided flank pain. Kidney stones. COMPARISON: 06/13/2016. TECHNIQUE: Abdomen and pe lvis were scanned utilizing a multidetector helical scanner from the lung base to the pubic symphysis without administration of IV contrast. Absence of intr avenous contrast decreases sensitivity for detection of focal lesions and vasc ular pathology. Coronal and sagittal reformations were obtained. Routine deisy col was performed. IV CONTRAST: None. ORAL CONTRAST : Water RADIATION DOSE: Total DLP: 580.64 mGy*cm Es timated effective dose: (DLP x 0.015 x size factor) mSv COMPLICATI ONS: None FINDINGS: LINES and TUBES: None. LOWER THORAX: Unremar kable HEPATOBILIARY: No focal hepatic lesions. No biliary ductal dilation. GALLBLADDER: No radio-opaque stones or sludge. No wall thickening. S PLEEN: No splenomegaly. PANCREAS: No focal masses or ductal dilatation. ADRENALS: No adrenal nodules. KIDNEYS/URETERS: No hydronephrosis. No cystic or solid mass lesions. Bilateral nonobstructing renal calculi, left mo re numerous than right, the largest in the upper pole of the left knee measure s 5 mm and coronal image 69. GI TRACT: No abnormal distention, wall thicken ing, or evidence of bowel obstruction. Appendix is normal. PELVIC O RGANS/BLADDER: The uterus is not visualized consistent with hysterectomy. Unch anged pelvic phleboliths. LYMPH NODES: No lymphadenopathy. VESSELS: Un remarkable. PERITONEUM / RETROPERITONEUM: No free air or fluid. BONES: Sclerotic lesions pelvic bones unchanged. No acute osseous abnormality. Degen erative disc disease at L5-S1. Status post left laminectomy at L5. SOFT TIS SUES: Unremarkable. IMPRESSION: 1. Bilateral nonobstructing nephrolithiasis, left greater than right. No evidence of obstructive uropathy. Signed by: Dr. Keeley Hercules M.D. on 10/20/2017 4:24 PM Dic tated By: AISLINN HERCULES MD, MD Electronically Signed By: AISLINN HERCULES MD, MD o n 10/20/171623 Transcribed By: KHUSHBOO on 10/20/17 1624 COPY TO: LISSETTE ALBERTS TECHNICAL ILLUSTRATOR Urine [id number] 15:23:00* Test Item Value Reference Range Interpretation Comments Urine WBC (test code = 5821-4) 0-5 0-5 [facility] BrenhamUrine [id number] 15:23:00* Test Item Value Reference Range Interpretation Comments Urine RBC (test code = 86037-4) 6-10 0-5 H [facility]hamUrine Ttsgvvul2723-37-43 15:23:00* Test Item Value Reference Range Interpretation Comments Urine Bacteria (test code = 72069-0) FEW NONE [facility] BrenhamUrine Epithelial Mpumm5629-81-26 15:23:00 * Test Item Value Reference Range Interpretation Comments Urine Epithelial Cells (test code = 61477-6) FEW NONE [facility] BrenhamUrine Calcium Oxalate Fpwwkajv8721-37-83 15:23:00* Test Item Value Reference Range Interpretation Comments Urine Calcium Oxalate Crystals (test code = 5774-5) FEW FE W [facility] BrenhamUrine Calcium Oxalate Nadzjigf7464-84-33 15:23:00* Test Item Value Reference Range Interpretation Comments Urine Calcium Oxalate Crystals (test code = 5774-5) FEW W [facility]odium Ruvgn6673-44-39 15:17:00* Test Item Value Reference Range Interpretation Comments Sodium Level (test code = 2951-2) 141 136-145 [facility] BrenhamPotassium Yrwpy6433-58-06 15:17:00* Test Item Value Reference Range Interpretation Comments Potassium Level (test code = 2823-3) 3.5 3.5-5.1 [facility] BrenhamChloride Bhwnj1759-51-34 15:17:00* Test Item Value Reference Range Interpretation Comments Chloride Level (test code = 2075-0) 105 98-107 [facility] BrenhamCarbon Dioxide Pdolk2365-82-03 15:17:00* Test Item Value Reference Range Interpretation Comments Carbon Dioxide Level (test code = 2028-9) 29 22-29 [facility] BrenhamAnion Hbd8570-06-25 15:17:00* Test Item Value Reference Range Interpretation Comments Anion Gap (test code = 18378-8) 10.5 8-16 [facility] BrenhamBlood Urea Yanqsczd0345-49-98 15:17:00* Test Item Value Reference Range Interpretation Comments Blood Urea Nitrogen (test code = 3094-0) 12 7-26 [facility] BrenhamCreatinine2018-07-22 15:17:00* Test Item Value Reference Range Interpretation Comments Creatinine (test code = 2160-0) 0.78 0.57-1.11 [facility] BrenhamBUN/Creatinine Fbljz1574-58-46 15:17:00* Test Item Value Reference Range Interpretation Comments BUN/Creatinine Ratio (test code = 3097-3) 15 6-25 [facility] BrenhamEstimat Glomerular Filtration Rate 2017-10-20 15:17:00* Test Item Value Reference Range Interpretation Comments Estimat Glomerular Filtration Rate (test code = 88649-8) 60- >60 Ranges were taken from the National Kidney Disease Education Program and the [facility] Kid[facility] Foundation literature.Reference ranges:60 or greater: Bziblu24-35 ( for 3 consecutive months): Chronic kidney disease 15 or less: Kidney failureBaylor Scott & White Medical Center – BrenhamGlucose Hvmxv8142-10-89 15:17:00* Test Item Value Reference Range Interpretation Comments Glucose Level (test code = BAR3506) 100 74-118 [facility] BrenhamCalcium Kueab4473-30-43 15:17:00* Test Item Value Reference Range Interpretation Comments Calcium Level (test code = 53974-0) 9.4 8.4-10.2 [facility] BrenhamTotal Klgdidxcb7501-64-65 15:17:00* Test Item Value Reference Range Interpretation Comments Total Bilirubin (test code = 1975-2) 0.6 0.2-1.2 [facility] BrenhamAspartate Amino Transf (AST/SGOT) 2017-10-20 15:17:00* Test Item Value Reference Range Interpretation Comments Aspartate Amino Transf (AST/SGOT) (test code = Aspartate Amino Transf (AST/SGOT)) 19 5-34 [facility] BrenhamAlanine Aminotransferase (ALT/SGPT) 2017-10-20 15:17:00* Test Item Value Reference Range Interpretation Comments Alanine Aminotransferase (ALT/SGPT) (test code = 1742-6) 18 0-55 [facility] BrenhamTotal Uvikrsg6956-32-25 15:17:00* Test Item Value Reference Range Interpretation Comments Total Protein (test code = 2885-2) 7.5 6.5-8.1 [facility] BrenhamAlbumin2018-07-22 15:17:00* Test Item Value Reference Range Interpretation Comments Albumin (test code = 1751-7) 3.7 3.5-5.0 [facility] BrenhamGlobulin2018-07-22 15:17:00* Test Item Value Reference Range Interpretation Comments Globulin (test code = 34433-6) 3.8 2.3-3.5 H [facility] BrenhamAlbumin/Globulin Nhxgw5525-60-83 15:17:00 * Test Item Value Reference Range Interpretation Comments Albumin/Globulin Ratio (test code = 1759-0) 1.0 0.8-2.0 [facility] BrenhamAlkaline Bevwblflqhb3902-51-09 15:17:00* Test Item Value Reference Range Interpretation Comments Alkaline Phosphatase (test code = 6768-6) 65 40-150 [facility] BrenhamUrine Tqvqu9381-09-54 15:15:00* Test Item Value Reference Range Interpretation Comments Urine Color (test code = 5778-6) YELLOW YELLOW [facility] BrenhamUrine Trgevni2503-65-28 15:15:00* Test Item Value Reference Range Interpretation Comments Urine Clarity (test code = 54471-1) CLEAR CLEAR [facility] Specific Pgrecbu2341-91-80 15:15:00 * Test Item Value Reference Range Interpretation Comments Urine Specific [place] (test code = 5811-5) 1.025 1.010-1.02 5 [facility] BrenhamUrine [id number] 15:15:00* Test Item Value Reference Range Interpretation Comments Urine pH (test code = 46858-8) 6.5 5-7 [facility] BrenhamUrine Leukocyte Vjmerzbh5429-74-56 15:15:00* Test Item Value Reference Range Interpretation Comments Urine Leukocyte Esterase (test code = 5799-2) NEGATIVE NEGATIVE [facility] Ppzfgmf3998-24-56 15:15:00* Test Item Value Reference Range Interpretation Comments Urine Nitrite (test code = 04227-9) NEGATIVE NEGATIVE [facility] BrenhamUrine Dtqkinw5512-25-89 15:15:00* Test Item Value Reference Range Interpretation Comments Urine Protein (test code = 5804-0) NEGATIVE NEGATIVE [facility] Glucose (UA)2017-10-20 15:15:00* Test Item Value Reference Range Interpretation Comments Urine Glucose (UA) (test code = 2349-9) NEGATIVE NEGATIVE [facility]hamUrine Gkqqfzt4054-95-50 15:15:00* Test Item Value Reference Range Interpretation Comments Urine Ketones (test code = 73404-8) NEGATIVE NEGATIVE [facility]hamUrine Fpsjgqthhhtx6185-13-30 15:15:00* Test Item Value Reference Range Interpretation Comments Urine Urobilinogen (test code = 44921-2) 0.2 0.2-1 [facility] BrenhamUrine Bovtopxaz7149-06-86 15:15:00* Test Item Value Reference Range Interpretation Comments Urine Bilirubin (test code = 1978-6) NEGATIVE NEGATIVE [facility] Kgjmy2703-78-92 15:15:00* Test Item Value Reference Range Interpretation Comments Urine Blood (test code = 88558-9) 1+ NEGATIVE H [facility] Chorionic Gonadotropin, Qual 2017-10-20 15:13:00* Test Item Value Reference Range Interpretation Comments Human Chorionic Gonadotropin, Qual (test code = 2118-8) NEGATIVE NEGATIVE [facility] Chorionic Gonadotropin, Qual 2017-10-20 15:13:00* Test Item Value Reference Range Interpretation Comments Human Chorionic Gonadotropin, Qual (test code = 2118-8) NEGATIVE NEGATIVE [facility] BrenhamWhite Blood Irtbl9674-35-67 15:08:00* Test Item Value Reference Range Interpretation Comments White Blood Count (test code = 6690-2) 7.59 4.8-10.8 [facility] BrenhamRed Blood Kbirv4002-84-90 15:08:00* Test Item Value Reference Range Interpretation Comments Red Blood Count (test code = 789-8) 5.03 3.6-5.1 [facility] BrenhamHemoglobin2018-07-22 15:08:00* Test Item Value Reference Range Interpretation Comments Hemoglobin (test code = 47319-1) 15.3 12.0-16.0 [facility] BrenhamHematocrit2018-07-22 15:08:00* Test Item Value Reference Range Interpretation Comments Hematocrit (test code = 4544-3) 47.4 34.2-44.1 H [facility] BrenhamMean Corpuscular Awvyno9414-18-10 15:08:00* Test Item Value Reference Range Interpretation Comments Mean Corpuscular Volume (test code = 787-2) 94.2 81-99 [facility] BrenhamMean Corpuscular Nagtymctft2622-06-66 15:08:00* Test Item Value Reference Range Interpretation Comments Mean Corpuscular Hemoglobin (test code = 785-6) 30.4 28-32 [facility] Corp[facility] Hemoglobin Concent 2017-10-20 15:08:00* Test Item Value Reference Range Interpretation Comments Mean Corpuscular Hemoglobin Concent (test code = 786-4) 32.3 31-35 [facility] BrenhamRed Cell Distribution Cwszy3609-32-98 15:08:00* Test Item Value Reference Range Interpretation Comments Red Cell Distribution Width (test code = 45359-6) 13.2 11.7 -14.4 [facility] BrenhamPlatelet Zafvt3550-67-32 15:08:00* Test Item Value Reference Range Interpretation Comments Platelet Count (test code = 777-3) 302 140-360 [facility] BrenhamNeutrophils (%) (Auto)2017-10-20 15:08:00 * Test Item Value Reference Range Interpretation Comments Neutrophils (%) (Auto) (test code = 67582-2) 69.1 38.7-80.0 [facility] BrenhamLymphocytes (%) (Auto)2017-10-20 15:08:00 * Test Item Value Reference Range Interpretation Comments Lymphocytes (%) (Auto) (test code = 736-9) 23.7 18.0-39.1 [facility] BrenhamMonocytes (%) (Auto)2017-10-20 15:08:00* Test Item Value Reference Range Interpretation Comments Monocytes (%) (Auto) (test code = 5905-5) 5.7 4.4-11.3 [facility] BrenhamEosinophils (%) (Auto)2017-10-20 15:08:00 * Test Item Value Reference Range Interpretation Comments Eosinophils (%) (Auto) (test code = 713-8) 1.1 0.0-6.0 [facility] BrenhamBasophils (%) (Auto)2017-10-20 15:08:00* Test Item Value Reference Range Interpretation Comments Basophils (%) (Auto) (test code = 706-2) 0.3 0.0-1.0 [facility] BrenhamIM GRANULOCYTES %2017-10-20 15:08:00* Test Item Value Reference Range Interpretation Comments IM GRANULOCYTES % (test code = IM GRANULOCYTES %) 0.1 0.0- 1.0 [facility] BrenhamNeutrophils # (Auto)2017-10-20 15:08:00* Test Item Value Reference Range Interpretation Comments Neutrophils # (Auto) (test code = 751-8) 5.3 2.1-6.9 [facility] BrenhamLymphocytes # (Auto)2017-10-20 15:08:00* Test Item Value Reference Range Interpretation Comments Lymphocytes # (Auto) (test code = 19167-7) 1.8 1.0-3.2 [facility] BrenhamMonocytes # (Auto)2017-10-20 15:08:00* Test Item Value Reference Range Interpretation Comments Monocytes # (Auto) (test code = 742-7) 0.4 0.2-0.8 [facility] BrenhamEosinophils # (Auto)2017-10-20 15:08:00* Test Item Value Reference Range Interpretation Comments Eosinophils # (Auto) (test code = 711-2) 0.1 0.0-0.4 [facility] BrenhamBasophils # (Auto)2017-10-20 15:08:00* Test Item Value Reference Range Interpretation Comments Basophils # (Auto) (test code = 704-7) 0.0 0.0-0.1 [facility] BrenhamAbsolute Immature Granulocyte (auto 2017-10-20 15:08:00* Test Item Value Reference Range Interpretation Comments Absolute Immature Granulocyte (auto (zeinab t code = Absolute Immature Granulocyte (auto) 0.01 0-0.1 [facility] BrenhamProthrombin Shmv4145-81-81 10:31:00* Test Item Value Reference Range Interpretation Comments Prothrombin Time (test code = 5902-2) 12.0 11.9-14.5 [facility] BrenhamProthromb Time International Ratio 2016-12-26 10:31:00* Test Item Value Reference Range Interpretation Comments Prothromb Time International Ratio (test code = 6301-6) 0.85 Oral Anticoagulant Therapy INR Values:1. Low Intensity Therapy 1.5 - 2.02 . Moderate Intensity Therapy 2.0 - 3.03. High Intensity Therapy(1) 2.5 - 3. 54. High Intensity Therapy(2) 3.0 - 4.05. Panic Value INR > 5.0 [facility] BrenhamActivated Partial Thromboplast Time 2016-12-26 10:31:00* Test Item Value Reference Range Interpretation Comments Activated Partial Thromboplast Time (test code = 50132-4) 40.2 23.8-35.5 [facility] [place] [address] Patient Name: JENNA WORTHY MR #: [id number] : 1980 Age/Sex: 36/F Req #: [id number] Adm Physician: Ordered by: VIKTORIYA ZARATE MD Report #: [id number] Location: OR Room/Bed: Procedure: [id number] DX/CHEST 2 VIEWS Exam Date: Exam Time: 0845 REPORT STATUS: Signed PROCEDURE: X-RAY CHEST, TWO VIEWS COMPARISON: 03/10/2014. INDICATIONS: PREO PERATIVE CHEST XRAY FOR LUMBAR SPINE SURGERY FINDINGS: The lungs a re well-inflated. No airspace consolidation, pleural effusion, or pneumothora x. Cardiomediastinal contour and pulmonary vasculature are within normal limi ts. No acute osseous abnormality. CONCLUSION: No acute cardiopu lmonary abnormality. Dictated by: Pierre Meeks M.D. on 12/26/2016 at 9 :20 Electronically approved by: Pierre Meeks M.D. on 12/26/2016 at 9:20 Dictated By: PIERRE MEEKS MD 9 Transcribed By: RUTHANN on 12/26/16919 COPY TO: VIKTORIYA ZARATE MD CT ABDOMEN/PELVIS WO [place] [address] Patient Name: JENNA WORTHY MR #: [id number] : 1980 Age/Sex: 36/F Req #: [id number] Adm Physician: Ordered by: NAYAN WYATT MD Report #: [id number] Location: ER Room/Bed: Procedure: CT/CT ABDOMEN/PELVIS WO Exam Ramírez e: 12/04/16 Exam Time: 0830 REPORT STATUS: Sign ed PROCEDURE: CT ABDOMEN AND PELVIS WITHOUT CONTRAST TECHNIQUE: The abdomen and pelvis were scanned utilizing a multidetector helical scanner fro m the diaphragm to the lesser trochanter without IV or oral contrast material . Coronal and sagittal multiplanar reformations were obtained. DLP: 53 3.98 mGy-cm COMPARISON: [facility], CT, CT ABDOMEN/PELVIS W O, 07/24/2016, 15:57. INDICATIONS: LEFT LOWER ABDOMEN PAIN RADIATING T O BACK AND DOWN LEFT LEG, NAUSEA FINDINGS: ABSENCE OF INTRAVENOUS CONTRAST DECREASES SENSITIVITY FOR DETECTION OF FOCAL LESIONS AND VASCULAR P ATHOLOGY. LOWER THORAX: Normal. HEPATOBILIARY: No focal hepatic lesi ons. No biliary ductal dilatation. SPLEEN: No splenomegaly. PANCREAS: No fo sharyn masses or ductal dilatation. ADRENALS: No adrenal nodules. KIDNEYS/U RETERS: Right kidney is normal. There are least 5 small nonobstructing stones in the left kidney with the largest being in the lower pole measuring 4.5 mm. This lower pole cyst stone previously measured 2.5 mm. No hydronephrosis or solid mass lesions. PELVIC ORGANS/BLADDER: Left tubal ligation clip. Resolut ion of the previously identified left ovarian cyst. Right-sided pelvic phlebo lith. PERITONEUM / RETROPERITONEUM: No free air or fluid. LYMPH NODES: N o lymphadenopathy. VESSELS: Duplicated IVC. GI TRACT: No distention or w all thickening. The appendix is normal. BONES AND SOFT TISSUES: Nonaggress jorge appearing stable bone islands in the right iliac bone. Disc space narrowi ng at L5-S1 with a posterior osteophyte complex. IMPRESSION: 1. M ultiple nonobstructing left renal stones with the largest being in the lower pole. 2. No ureteral stones or hydronephrosis. Juan Miguel Alexis D.O. Dictated by: Juan Miguel Alexis D.O. on 12/04/2016 at 10:22 Electronically approved by: Juan Miguel Alexis D.O. on 12/04/2016 at 10:38 Dict ated By: JUAN MIGUEL ALEXIS DO 1038 COPY TO: NAYAN WYATT MD
--- NOTE | 2020-02-04 19:00 | NUR ---
BEDSIDE SHIFT REPORT GIVEN TO THE CODING COORDINATOR RN. PT DENIED FURTHER NEEDS
[2020-02-04] MEDS: ZOLPIDEM TARTRATE 5 MG TAB PO PRN (20:34)
[2020-02-05] VITALS (8 sets, daily range): BP systolic 117–152; BP diastolic 74–91
[2020-02-05] MEDS: MORPHINE SULFATE 2 MG/ML SYR 1ML IV PRN ×2 (03:44→12:40)
[2020-02-05] MEDS: ONDANSETRON HCL INJ 2MG/ML 2ML 2 MG/ML VIAL IV PRN ×2 (03:44→12:39)
[2020-02-05] MEDS: SODIUM CHLORIDE 0.9% 1000ML 1,000 ML IV SCH ×3 (03:44→22:36)
[2020-02-05] MEDS: CEFTRIAXONE SOD 1 GM/NS 50 ML 50 ML IV SCH (06:32)
--- NOTE | 2020-02-05 06:32 | NUR ---
IM- progress note O/N see below ROS:no f/c/s/V/D/[place]/cp/sob/skin rash/confusion/dizziness/leg pain/ v/s revd PHYSICAL EXAMINATION tired appearing anicteric ns1s2 mod bs soft nd; LEFT ABDOMEN TENDER; no flank tenderness no leg edema skin dry n. affect a&ox3; gamez labs/meds revd A/P: 39yoF Left Ureterolithiasis 4x8mm; IVF; - IVF; flomax; urology consult; UA still not obtained; check STAT. Start empiric abx. Left hydroureteronephrosis- monitor; DM2- check hab1c/lipids Obesity- 1/2 portion sizes; BMI 33- as above HLD- check lipids Prop: scd Dispo; 11-2 possible stent; cont fluids; check hab1c/lipids 11-3 check labs; no surgery today. Stone no longer obstructive? continue protocol for stone. f/u urology 11-4 IV pyelogram today; plans per urology. pt still c/o pain. 11-5 persistent symptoms; CT planned 11-6 Partial vs Intermittent Obx of left ureter; has 4mm stone; check labs; MINDY COHEN MD, PHD.
--- NOTE | 2020-02-05 07:00 | NUR ---
BEDSIDE SHIFT REPORT RECEIVED FROM THE WATER RESOURCES TECHNICAL OFFICER RN. EDUCATED PT ABOUT FALL PRECAUTIONS. PT VERBALIZED UNDERSTANDING. BED IS LOW AND LOCKED. SIDE RAILS X2. CALL LIGHT WITH IN EASY REACH. PT IS ON NPO. ALL SAFETY MEASURES IN PLACE. PT DENIES NEEDS AT THIS TIME.
[2020-02-05] MEDS: AMPHET ASP PO SCH (08:52)
[2020-02-05] MEDS: AMPHET PO SCH (08:52)
[2020-02-05] MEDS: D AMPHET PO SCH (08:52)
[2020-02-05] MEDS: FAMOTIDINE 20 MG/2 ML VIAL IV SCH ×2 (08:53→16:06)
[2020-02-05 09:00] LABS: BASOPHILS % 0.4 % (0.0-1.0); EOSINOPHILS # (AUTO) 0.2 (0.0-0.4); EOSINOPHILS % 2.8 % (0.0-6.0); HEMATOCRIT 33.4 % (34.2-44.1); HEMOGLOBIN 10.5 g/dL (12.0-16.0); LYMPHOCYTES # (AUTO) 2.2 (1.0-3.2); LYMPHOCYTES % 30.3 % (18.0-39.1); MEAN CORPUSCULAR HGB CONC 31.4 g/dL (31-35); MEAN CORPUSCULAR VOLUME 92.3 fL (81-99); MONOCYTES # (AUTO) 0.5 (0.2-0.8); MONOCYTES % 6.8 % (4.4-11.3); NEUTROPHILS # (AUTO) 4.4 (2.1-6.9); NEUTROPHILS % 59.4 % (38.7-80.0); PLATELET COUNT 213 x10e3/uL (140-360); RED BLOOD COUNT 3.62 x10e6/uL (3.6-5.1); RED CELL DISTRIBUTION WIDTH 12.8 % (11.7-14.4)
[2020-02-05] MEDS: DOCUSATE SODIUM 100 MG CAP PO SCH ×2 (09:00→16:06)
[2020-02-05] MEDS: SENNOSIDES 8.6 MG TAB PO SCH ×2 (09:00→20:13)
[2020-02-05 09:20] LABS: ANION GAP 6.2 mmol/L (8-16); BLOOD UREA NITROGEN 9 mg/dL (7-26); BUN/CREATININE RATIO 18 (6-25); CARBON DIOXIDE 22 mmol/L (22-29); CHLORIDE 117 mmol/L (98-107); CREATININE, SERUM 0.51 mg/dL (0.57-1.11); EST GLOMERULAR FILTRATION RATE > 60 ML/MIN (60-); GLUCOSE 71 mg/dL (74-118); POTASSIUM 3.2 mmol/L (3.5-5.1); SODIUM 142 mmol/L (136-145)
[2020-02-05 09:44] LABS: CALCIUM 5.9 mg/dL (8.4-10.2)
--- NOTE | 2020-02-05 09:50 | NUR ---
CALL RECEIVED FROM LAB STATING PT CALCIUM LEVEL 5.9. PAGED DR. COHEN, DR. RIVAS , PHARMACY AND OR REGARDING THE SAME.
[2020-02-05] MEDS ORDERED: SODIUM CHLORIDE 0.9% IV ONE (10:30)
[2020-02-05] MEDS ORDERED: CALCIUM GLUCONATE IV ONE (10:30)
--- NOTE | 2020-02-05 10:30 | NUR ---
CALL RECEIVED FROM LAB STATING PT MAGNESIUM 1.0. REPORTED THE SAME TO DR. COHEN, DR. RIVAS. OR AND PHARMACY.
--- NOTE | 2020-02-05 10:54 | NUR ---
CALL RECEIVED FROM LAB TO REPEAT LABS FOR CALCIUM AND MAGNESIUM. KARL RIDLEY AND REPORTED THE SAME. Addendum: 02/05/20 at 1203 by Sherman Skaggs RN CALL RECEIVED FROM OR TO REPEAT LABS FOR CALCIUM AND MAGNESIUM
[2020-02-05] MEDS ORDERED: MAGNESIUM SULFATE 2GM/50ML 50 ML IV ONE (11:00)
--- NOTE | 2020-02-05 11:00 | NUR ---
STAT ORDER TO RECHECK CALCIUM AND MAGNESIUM. WAITING FOR THE UPDATED LAB RESULTS TO ADMINISTER CALCIUM GLUCONATE AND MAGNESIUM SULPHATE.
[2020-02-05] MEDS ORDERED: SODIUM CHLORIDE 0.9% 50ML 50 ML ONE (11:35)
--- NOTE | 2020-02-05 12:00 | NUR ---
UPDATED LAB VALUES PER LAB FOR CALCIUM 8.8 AND MAGNESIUM 1.6. REPORTED THE SAME TO DR. COHEN, DR. RIVAS, OR AND PHARMACY. DISCONTINUED ORDERS FOR CALCIUM GLUCONATE IV AND MAGNESIUM SULPHATE IV PER DR. COHEN.
[2020-02-05] MEDS ORDERED: IOPAMIDOL 300MG/ML 50ML INFUS..BTL IV ONE (12:49)
[2020-02-05] MEDS ORDERED: B&O 60MG R/S 60 MG SUPP PR ONE (12:49)
--- NOTE | 2020-02-05 12:50 | NUR ---
PT OFF UNIT FOR PROCEDURE IN SAFE CONDITION.
[2020-02-05] MEDS ORDERED: MIDAZOLAM HCL 2 MG/2 ML VIAL ONE (13:21)
[2020-02-05] MEDS ORDERED: FENTANYL CITRATE/PF 100MCG/2 ML INJ ONE ×2 (13:21→14:46)
[2020-02-05] MEDS ORDERED: PROPOFOL IV EMULSION 10 MG/ML 20 ML VIAL ONE (13:46)
[2020-02-05] MEDS ORDERED: DEXAMETHASONE SOD PHOS INJ 4 MG/ML VIAL ONE (13:46)
[2020-02-05] MEDS ORDERED: ONDANSETRON HCL INJ 2MG/ML 2ML 2 MG/ML VIAL ONE (13:46)
[2020-02-05] MEDS ORDERED: SEVOFLURANE INHAL SOLN 250 ML PEN BTL ONE (13:46)
[2020-02-05] MEDS ORDERED: LIDOCAINE HCL 2% LOCAL INJ 5 ML SDV VIAL INJ ONE (13:46)
[2020-02-05] MEDS ORDERED: B&O 60MG R/S 60 MG SUPP PR PRN (14:00)
[2020-02-05] MEDS ORDERED: PHENAZOPYRIDINE HCL 100 MG TAB PO PRN (14:00)
--- NOTE | 2020-02-05 15:25 | NUR ---
PT IS BACK TO THE UNIT FROM PACU AFTER PROCEDURE.PT IS COMPLAINING OF SEVERE PAIN. PT IS AAOX4. BED IS LOW AND LOCKED. SIDE RAILS X2. CALL LIGHT WITH IN EASY REACH. BED ALARM IS ON. ALL SAFETY MEASURES IN PLACE.
[2020-02-05] MEDS: ACETAMINOPHEN/CODEINE 300MG - 30MG TAB PO PRN ×2 (15:37→22:29)
[2020-02-05] MEDS: OXYBUTYNIN CHLORIDE 5 MG TAB PO SCH ×2 (15:52→20:13)
[2020-02-05] MEDS: TAMSULOSIN HCL 0.4 MG CAP PO SCH (15:52)
[2020-02-05] MEDS: MORPHINE SULFATE INJ 4 MG/ML INJ 1ML IV PRN ×2 (16:44→22:19)
[2020-02-05] MEDS ORDERED: MORPHINE SULFATE 2 MG/ML SYR 1ML IV PRN (18:00)
--- NOTE | 2020-02-05 19:00 | NUR ---
BEDSIDE SHIFT REPORT GIVEN TO THE TAR PROCESSING TECHNICIAN RN. AT BEDSIDE. PT DENIED FURTHER NEEDS.
[2020-02-05] MEDS: ZOLPIDEM TARTRATE 5 MG TAB PO PRN (20:34)
[2020-02-06] VITALS: BP 128/95
[2020-02-06] MEDS: MORPHINE SULFATE INJ 4 MG/ML INJ 1ML IV PRN (02:30)
[2020-02-06 04:00] VITALS: BP 130/81
[2020-02-06] MEDS: ONDANSETRON HCL INJ 2MG/ML 2ML 2 MG/ML VIAL IV PRN (04:08)
[2020-02-06] MEDS: ACETAMINOPHEN/CODEINE 300MG - 30MG TAB PO PRN ×3 (04:08→14:15)
[2020-02-06 05:20] LABS: BASOPHILS % 0.2 % (0.0-1.0); HEMATOCRIT 39.6 % (34.2-44.1); HEMOGLOBIN 12.8 g/dL (12.0-16.0); LYMPHOCYTES # (AUTO) 1.4 (1.0-3.2); LYMPHOCYTES % 10.8 % (18.0-39.1); MEAN CORPUSCULAR HGB CONC 32.3 g/dL (31-35); MEAN CORPUSCULAR VOLUME 89.6 fL (81-99); MONOCYTES # (AUTO) 0.4 (0.2-0.8); MONOCYTES % 3.1 % (4.4-11.3); NEUTROPHILS # (AUTO) 11.4 (2.1-6.9); NEUTROPHILS % 85.5 % (38.7-80.0); PLATELET COUNT 271 x10e3/uL (140-360); RED BLOOD COUNT 4.42 x10e6/uL (3.6-5.1); RED CELL DISTRIBUTION WIDTH 12.7 % (11.7-14.4)
[2020-02-06 05:32] LABS: BLOOD UREA NITROGEN 11 mg/dL (7-26); BUN/CREATININE RATIO 14 (6-25); CARBON DIOXIDE 28 mmol/L (22-29); CHLORIDE 103 mmol/L (98-107); CREATININE, SERUM 0.77 mg/dL (0.57-1.11); EST GLOMERULAR FILTRATION RATE > 60 ML/MIN (60-); GLUCOSE 158 mg/dL (74-118); MAGNESIUM 1.6 MG/DL (1.3-2.1); SODIUM 137 mmol/L (136-145)
[2020-02-06] MEDS: CEFTRIAXONE SOD 1 GM/NS 50 ML 50 ML IV SCH (05:32)
[2020-02-06 05:51] LABS: ANION GAP 10.5 mmol/L (8-16)
[2020-02-06 05:53] LABS: POTASSIUM 4.5 mmol/L (3.5-5.1)
[2020-02-06 07:38] VITALS: BP 101/62
--- NOTE | 2020-02-06 07:50 | NUR ---
D/C summary Principal Dx: Left Ureterolithiasis 4x8mm; IVF; - IVF; flomax; urology consult; UA still not obtained; check STAT. Start empiric abx. s/p Lithotripsy to left stone, and B/L urinary stents placed. Left hydroureteronephrosis- monitor; DM2- check hab1c/lipids Obesity- 1/2 portion sizes; BMI 33- as above HLD- check lipids Prop: scd Dispo; -2 possible stent; cont fluids; check hab1c/lipids 11-3 check labs; no surgery today. Stone no longer obstructive? continue protocol for stone. f/u urology - IV pyelogram today; plans per urology. pt still c/o pain. -5 persistent symptoms; CT planned 02-04 Partial vs Intermittent Obx of left ureter; has 4mm stone; check labs; 02-05 lytes replaced; s/p left lithotripsy and B/L urinary stents. d.c home stable f/u pcp 2 days and 2 weeks d/.c>35mns MINDY COHEN MD, PHD.
[2020-02-06] MEDS ORDERED: ZOFRAN4 MG PO (07:52)
[2020-02-06] MEDS ORDERED: KEFLEX500 MG PO ×2 (07:52→07:58)
[2020-02-06] MEDS ORDERED: SENOKOT8.6 MG PO (07:52)
[2020-02-06] MEDS ORDERED: COLACE100 MG PO (07:52)
[2020-02-06] MEDS ORDERED: FLOMAX0.4 MG PO (07:52)
[2020-02-06] MEDS ORDERED: TYLENOL # 31 EA PO (07:52)
[2020-02-06] MEDS: SODIUM CHLORIDE 0.9% 1000ML 1,000 ML IV SCH (08:32)
[2020-02-06] MEDS: FAMOTIDINE 20 MG/2 ML VIAL IV SCH (08:32)
[2020-02-06] MEDS: OXYBUTYNIN CHLORIDE 5 MG TAB PO SCH ×2 (08:34→15:56)
[2020-02-06] MEDS: AMPHET ASP PO SCH (08:34)
[2020-02-06] MEDS: AMPHET PO SCH (08:34)
[2020-02-06] MEDS: D AMPHET PO SCH (08:34)
[2020-02-06] MEDS: TAMSULOSIN HCL 0.4 MG CAP PO SCH (08:35)
[2020-02-06] MEDS: DOCUSATE SODIUM 100 MG CAP PO SCH (08:35)
[2020-02-06] MEDS: SENNOSIDES 8.6 MG TAB PO SCH (08:35)
[2020-02-06 08:59] VITALS: BP 101/62
[2020-02-06 11:19] VITALS: BP 135/82
[2020-02-06] MEDS ORDERED: KETOROLAC TROMETHAMINE 30 MG/ML VIAL IV PRN (11:30)
[2020-02-06] MEDS ORDERED: KETOROLAC TROMETHAMINE 60 MG/2 ML VIAL IM ONE (11:30)
--- NOTE | 2020-02-06 12:38 | NUR ---
Nutrition Screen Note RD Recommendation for Physician: -Continue current diet as ordered Plan of Care: RD following, monitoring for tolerance and adequacy Nutrition reason for involvement: length of stay Primary Diagnose(s): kidney stones PMH: Right-sided urolithiasis status post stent placement, Intractable pain secondary to urolithiasis, Asymptomatic bradycardia, Right hydronephrosis secondary to right-sided urolithiasis, Mild normocytic anemia, Obesity, DM2, Hyperlipidemia, Mild normocytic anemia, Nephrolithiasis, .Left ureteral stent, .Left Hydronephrosis, UTI, Hematuria Ht: 63 in Wt: 190 lb BMI: 33.7 kg/m2 IBW:[address] Assessment: (02/06/20) Chart reviewed. Labs and meds reviewed. Pt is a 39 year old female admitted with kidney stones. Pt reports she is eating all of her meals and usually weighs 190 lbs. Pt reports some nausea. No chewing/swallowing issues. Will continue to monitor. Current Diet: regular Malnutrition Evaluation (02/06/20) The patient does not meet criteria for a specified degree of malnutrition at this time. Will re-evaluate at follow-up as appropriate. > Diet Education Needs Assessment: Diet education not indicated. Pt is on a regular diet Nutrition Care Level: low Signed: Yomaira Jennings, RD, LD
[2020-02-06] MEDS ORDERED: KETOROLAC TROMETHAMINE 30 MG/ML VIAL IM ONE (14:30)
[2020-02-06 15:54] VITALS: BP 132/82
--- NOTE | 2020-02-06 16:35 | NUR ---
pt discharged home prescriptions given, pt educated on her medications an was asked to follow up with her pcp and urologist, iv site removed, no swelling, no redness to site.
--- NOTE | 2020-02-06 18:43 | Operative Report ---
DATE OF PROCEDURE: 02/05/2020 SURGEON: Pablo Alexandra MD PREOPERATIVE DIAGNOSES: 1. Right nephrolithiasis. 2. Left ureterolithiasis. 3. Microhematuria. 4. Urinary tract infections. POSTOPERATIVE DIAGNOSES: 1. Right nephrolithiasis. 2. Left ureterolithiasis. 3. Microhematuria. 4. Urinary tract infections. 5. Cystocele. 6. Urethral hypermobility. OPERATIONS PERFORMED: Note, these were all staged procedures as part of multi-staged and multi-step process in managing patient's urolithiasis. 1. Right extracorporeal shockwave lithotripsy (separate procedure performed for the right nephrolithiasis). 2. Cystourethroscopy with bilateral ureteral catheterization and retrograde ureteropyelography (separate procedure performed for the microhematuria and urinary tract infections). 3. Interpretation of retrograde ureteropyelography. 4. Supervision of fluoroscopy. 5. Left ureteroscopy with holmium laser lithotripsy, extraction of stone fragments and placement of stents (separate procedure performed for the ureterolithiasis). 6. Urological services with supervision and interpretation of ureteroscopy. 7. Pelvic examination under anesthesia. ANESTHESIA: General. COMPLICATIONS: None. CLINICAL SUMMARY: Kena benjamin is a 39-year-old woman, who has failed to pass a distal left ureteral stone. She is still symptomatic. Multiple radiographic studies have been done confirming the diagnosis. The patient wants definitive management. She is aware of the risks of bleeding, infection, injury to adjacent structures, need for additional procedures and elected to proceed. OPERATIVE PROCEDURE IN DETAIL: Informed consent was verified Kena Benjamin was properly identified and taken to the operating room, placed on the lithotripsy table in supine position. Anesthesia was uneventfully begun. The patient's right nephrolithiasis was localized with biplanar fluoroscopy. A total of 3000 shocks were delivered with excellent fragmentation. The patient was carefully gently repositioned in the dorsal lithotomy position with all pressure points well padded. Her genitalia were prepared and draped in usual sterile fashion. The cystoscope sheath with obturator in place was atraumatically inserted in the patient's urethra and bladder was drained. Panendoscopy revealed grade 1 trabeculations, but no tumors, no stones, and no diverticula. There was some trigonitis noted. No tumors were noted. Ureteral catheter was used to cannulate each ureter and retrograde ureteral pyelograms were performed. A guidewire was then placed into the left ureter and guided to the level of the patient's kidney. Semi-rigid ureteroscope was then placed alongside the guidewire and guided into the distal ureter, we identified this two stones. These stones were lodged. Holmium laser lithotripsy was performed utilized to fragment the stones into smaller fragments. These were extracted with a basket. With cystoscopic and fluoroscopic guidance a left-sided indwelling ureteral stent was then placed it was coiled into the patient's kidneys as well as the patient's bladder. The retaining suture was cut short. Interpretation of retrograde ureteropyelography contrast was instilled in retrograde fashion bilaterally. The left side exhibited mild hydroureteronephrosis. The stent was in good position coiled to the patient's kidney as well as the patient's bladder. At the end of the case, the right side exhibited no hydronephrosis. The ureter was unremarkable. The filling defects which corresponded to where we performed lithotripsy consistent with blood clots as well as stone fragments. Unobstructed drainage was observed fluoroscopically on the right-hand side and therefore, stent was not placed. The patient's bladder was drained. Cystoscope was withdrawn. Pelvic examination under anesthesia revealed a cystocele with urethral hypermobility. No abnormal palpable pelvic masses could be appreciated. There were no obvious mucosal lesions. The patient was then uneventfully reversed from anesthesia and taken to recovery room in stable condition. There were no complications to the procedure. She tolerated the procedure well. PLANS: Plans will be to monitor the patient's symptomatology. When her pain is controlled, she may be discharged home. She will be to follow up for the stent removal, left ureteroscopy after several weeks. Pablo Alexandra MD [facility] /[id number]
== END 2020-02-06 16:38 | disposition home or self-care (01) | DRG 661 ==
LOC: MED/SURG 18:29 → OBSVTOIN 02-01 08:19 → MED/SURG2 02-01 11:44
PROVIDERS: ADMIT Internal Medicine; ATTEND Internal Medicine
PROC: BT141ZZ Fluoroscopy of Kidneys, Ureters and Bladder using Low Osmolar Contrast (ICD-10-PCS; 2020-02-05)
PROC: 0TF3XZZ Fragmentation in Right Kidney Pelvis, External Approach (ICD-10-PCS; principal; 2020-02-05 10:30)
PROC: 0T778DZ Dilation of Left Ureter with Intraluminal Device, Via Natural or Artificial Opening Endoscopic (ICD-10-PCS; 2020-02-05 10:30)
PROC: 0TC78ZZ Extirpation of Matter from Left Ureter, Via Natural or Artificial Opening Endoscopic (ICD-10-PCS; 2020-02-05 10:30)
DX: N13.6 Pyonephrosis (principal); E66.9 Obesity, unspecified; Z68.33 Body mass index [BMI] 33.0-33.9, adult; N81.10 Cystocele, unspecified; N36.41 Hypermobility of urethra; Z20.828 Contact with and (suspected) exposure to other viral communicable diseases; E11.9 Type 2 diabetes mellitus without complications; E78.5 Hyperlipidemia, unspecified
CPT/HCPCS: 36415; 50590; 74018; 74176; 74400; 80048; 80061; 81001; 82310; 82948; 83036; 83735; 85025; 87086; 88300; 96361; C1758; C1769; C2617; G0378; J0610; J0696; J1100; J1170; J1885; J2001; J2250; J2270; J2405; J3010; J7030; J7050; Q9967; U0002

== ENCOUNTER → 2020-03-07 | Day surgery (SDC) | payer OTHER ==
[2020-03-03 13:50] LABS: BASOPHILS % 0.4 % (0.0-1.0); EOSINOPHILS # (AUTO) 0.1 (0.0-0.4); EOSINOPHILS % 0.7 % (0.0-6.0); LYMPHOCYTES # (AUTO) 2.2 (1.0-3.2); LYMPHOCYTES % 32.1 % (18.0-39.1); MEAN CORPUSCULAR HEMOGLOBIN 28.3 pg (28-32); MEAN CORPUSCULAR HGB CONC 31.7 g/dL (31-35); MEAN CORPUSCULAR VOLUME 89.1 fL (81-99); MONOCYTES # (AUTO) 0.4 (0.2-0.8); MONOCYTES % 5.9 % (4.4-11.3); NEUTROPHILS # (AUTO) 4.2 (2.1-6.9); NEUTROPHILS % 60.8 % (38.7-80.0); PLATELET COUNT 286 x10e3/uL (140-360); RED CELL DISTRIBUTION WIDTH 12.9 % (11.7-14.4)
[2020-03-03 14:06] LABS: ANION GAP 12.8 mmol/L (8-16); BLOOD UREA NITROGEN 13 mg/dL (7-26); BUN/CREATININE RATIO 16 (6-25); CALCIUM 9.1 mg/dL (8.4-10.2); CARBON DIOXIDE 28 mmol/L (22-29); CHLORIDE 103 mmol/L (98-107); CREATININE, SERUM 0.79 mg/dL (0.57-1.11); EST GLOMERULAR FILTRATION RATE > 60 ML/MIN (60-); GLUCOSE 99 mg/dL (74-118); POTASSIUM 3.8 mmol/L (3.5-5.1); SODIUM 140 mmol/L (136-145)
[~2020-03-07] MED LIST changes: +ACETAMINOPHEN/CODEINE 300MG - 30MG TAB ONE; +B&O 60MG R/S 60 MG SUPP PR ONE; +CEFTRIAXONE SOD 1 GM/NS 50 ML 50 ML IV ONE; +COLACE100 MG PO; +DEXAMETHASONE SOD PHOS INJ 4 MG/ML VIAL ONE; +FENTANYL CITRATE/PF 100MCG/2 ML INJ ONE; +FLOMAX0.4 MG PO; +GENTAMICIN 80MG/NS 100 ML 100 ML IV ONE; +IOPAMIDOL 300MG/ML 50ML INFUS..BTL IV ONE; +KEFLEX500 MG PO; +LIDOCAINE HCL 2% JELLY 5 ML TUBE ONE; +LIDOCAINE HCL 2% LOCAL INJ 5 ML SDV VIAL INJ ONE; +MIDAZOLAM HCL 2 MG/2 ML VIAL ONE; +ONDANSETRON HCL INJ 2MG/ML 2ML 2 MG/ML VIAL ONE; +PROPOFOL IV EMULSION 10 MG/ML 20 ML VIAL ONE; +SENOKOT8.6 MG PO; +SEVOFLURANE INHAL SOLN 250 ML PEN BTL ONE; +ZOFRAN4 MG PO
[2020-03-07 09:25] VITALS: BP 125/76
== END | disposition home or self-care (01) ==
LOC: OR 05:31
PROVIDERS: ATTEND Urology
DX: N20.0 Calculus of kidney (principal); Z46.6 Encounter for fitting and adjustment of urinary device; N28.89 Other specified disorders of kidney and ureter; N81.6 Rectocele; N36.41 Hypermobility of urethra; K21.9 Gastro-esophageal reflux disease without esophagitis; F41.9 Anxiety disorder, unspecified; F32.9 Major depressive disorder, single episode, unspecified; Z01.812 Encounter for preprocedural laboratory examination; Z01.818 Encounter for other preprocedural examination; Z20.828 Contact with and (suspected) exposure to other viral communicable diseases
CPT/HCPCS: 36415; 52351; 74018; 74420; 80048; 85025; 87086; C1769; J0696; J1580; J2250; J3010; Q9967; U0002; J1100; J2001; J2405

== ENCOUNTER 2022-06-19 19:55 | Inpatient (IN) | payer OTHER ==
[~2022-06-19] VITALS: Ht 160 cm; Wt 86.2 kg
[~2022-06-19 19:55] MED LIST changes: -ACETAMINOPHEN/CODEINE 300MG - 30MG TAB ONE; -B&O 60MG R/S 60 MG SUPP PR ONE; -CEFTRIAXONE SOD 1 GM/NS 50 ML 50 ML IV ONE; +DEXAMETHASONE SOD PHOS INJ 4 MG/ML SDV ONE; -DEXAMETHASONE SOD PHOS INJ 4 MG/ML VIAL ONE; -FENTANYL CITRATE/PF 100MCG/2 ML INJ ONE; -GENTAMICIN 80MG/NS 100 ML 100 ML IV ONE; -IOPAMIDOL 300MG/ML 50ML INFUS..BTL IV ONE; +KETOROLAC TROMETHAMINE 30 MG/ML VIAL ONE; -LIDOCAINE HCL 2% JELLY 5 ML TUBE ONE; -MIDAZOLAM HCL 2 MG/2 ML VIAL ONE; +POVIDONE IODINE 0.05% 0.05 % ML PO ONE; +ROCURONIUM BROMIDE 10 MG/ML 5ML VIAL IV ONE; +SUCCINYLCHOLINE CHLORIDE 20 MG/ML 10ML VIAL ONE
[2022-06-19] MEDS ORDERED: ACETAMINOPHEN 325 MG TAB PO STA (20:07)
[2022-06-19] MEDS ORDERED: SODIUM CHLORIDE 0.9% 1000ML 1,000 ML IV STA ×2 (20:07→20:22)
[2022-06-19] MEDS ORDERED: Morphine 4mg INJECTION 4 MG/ML INJ IV PRN (20:15)
[2022-06-19] MEDS ORDERED: ONDANSETRON HCL INJ 2MG/ML 2ML 2 MG/ML VIAL IV STA (20:22)
[2022-06-19] MEDS: KETOROLAC TROMETHAMINE 30 MG/ML VIAL IV PRN (20:28)
[2022-06-19 20:30] LABS: BASOPHILS % 0.4 % (0.0-1.0); EOSINOPHILS % 0.2 % (0.0-6.0); HEMATOCRIT 37.4 % (34.2-44.1); HEMOGLOBIN 11.5 g/dL (12.0-16.0); LYMPHOCYTES # (AUTO) 2.7 (1.0-3.2); LYMPHOCYTES % 25.9 % (18.0-39.1); MEAN CORPUSCULAR HEMOGLOBIN 26.1 pg (28-32); MEAN CORPUSCULAR HGB CONC 30.7 g/dL (31-35); MEAN CORPUSCULAR VOLUME 84.8 fL (81-99); MONOCYTES # (AUTO) 0.9 (0.2-0.8); MONOCYTES % 8.2 % (4.4-11.3); NEUTROPHILS # (AUTO) 6.8 (2.1-6.9); NEUTROPHILS % 65.1 % (38.7-80.0); PLATELET COUNT 365 x10e3/uL (140-360); RED BLOOD COUNT 4.41 x10e6/uL (3.6-5.1)
[2022-06-19 20:32] LABS: CLARITY,URINE TURBID (CLEAR); COLOR,URINE RED (YELLOW); KETONES,URINE 1+ (NEGATIVE); LEUKOCYTE ESTERASE ,URINE LARGE (NEGATIVE); NITRITE,URINE NEGATIVE (NEGATIVE); PROTEIN,URINE DIPSTICK >=300 (NEGATIVE); URINE UROBILINOGEN 1 mg/dL (0.2 - 1)
[2022-06-19 20:44] LABS: BACTERIA,URINE MODERATE /HPF; RBC,URINE >50 /HPF (0-5)
[2022-06-19 20:48] LABS: ALBUMIN/GLOBULIN RATIO 0.6 (0.8-2.0); ANION GAP 17.3 mmol/L (8-16); CALCIUM 9.5 mg/dL (8.4-10.2); CREATININE, SERUM 0.89 mg/dL (0.57-1.11); POTASSIUM 3.3 mmol/L (3.5-5.1)
[2022-06-19] MEDS ORDERED: HYDROMORPHONE 1MG/1ML INJ IV STA (21:45)
[2022-06-19] MEDS: SODIUM CHLORIDE 0.9% 1000ML 1,000 ML IV SCH (22:33)
[2022-06-19 23:00] VITALS: BP 102/60
[2022-06-20] VITALS (8 sets, daily range): BP systolic 94–109; BP diastolic 60–70
[2022-06-20] MEDS ORDERED: OMEPRAZOLE40 MG PO (02:07)
[2022-06-20] MEDS: SODIUM CHLORIDE 0.9% 1000ML 1,000 ML IV SCH ×2 (02:30→07:16)
[2022-06-20] MEDS: ONDANSETRON HCL INJ 2MG/ML 2ML 2 MG/ML VIAL IV PRN ×5 (03:08→23:28)
[2022-06-20] MEDS: HYDROMORPHONE 1MG/1ML INJ IV PRN ×5 (03:08→23:24)
[2022-06-20 06:17] LABS: BASOPHILS % 0.4 % (0.0-1.0); EOSINOPHILS # (AUTO) 0.1 (0.0-0.4); HEMATOCRIT 30.6 % (34.2-44.1); HEMOGLOBIN 9.3 g/dL (12.0-16.0); LYMPHOCYTES # (AUTO) 2.6 (1.0-3.2); LYMPHOCYTES % 35.2 % (18.0-39.1); MEAN CORPUSCULAR HEMOGLOBIN 26.7 pg (28-32); MEAN CORPUSCULAR HGB CONC 30.4 g/dL (31-35); MEAN CORPUSCULAR VOLUME 87.9 fL (81-99); MONOCYTES # (AUTO) 0.8 (0.2-0.8); MONOCYTES % 11.5 % (4.4-11.3); NEUTROPHILS # (AUTO) 3.8 (2.1-6.9); NEUTROPHILS % 51.6 % (38.7-80.0); PLATELET COUNT 246 x10e3/uL (140-360); RED BLOOD COUNT 3.48 x10e6/uL (3.6-5.1); RED CELL DISTRIBUTION WIDTH 15.1 % (11.7-14.4)
[2022-06-20 06:45] LABS: ALBUMIN 2.2 g/dL (3.5-5.0); ALBUMIN/GLOBULIN RATIO 0.6 (0.8-2.0); ANION GAP 10.5 mmol/L (8-16); CALCIUM 8.1 mg/dL (8.4-10.2); CREATININE, SERUM 0.74 mg/dL (0.57-1.11); POTASSIUM 3.5 mmol/L (3.5-5.1)
[2022-06-20] MEDS: KETOROLAC TROMETHAMINE 30 MG/ML VIAL IV PRN (21:08)
[2022-06-21] VITALS (7 sets, daily range): BP systolic 96–139; BP diastolic 64–86
[2022-06-21] MEDS: SODIUM CHLORIDE 0.9% 1000ML 1,000 ML IV SCH ×4 (02:11→21:23)
[2022-06-21] MEDS: HYDROMORPHONE 1MG/1ML INJ IV PRN ×4 (04:19→18:35)
[2022-06-21] MEDS: ONDANSETRON HCL INJ 2MG/ML 2ML 2 MG/ML VIAL IV PRN ×4 (04:19→18:35)
[2022-06-21] MEDS: ZOLPIDEM TARTRATE 10 MG TAB PO SCH (20:21)
[2022-06-22] VITALS (7 sets, daily range): BP systolic 111–128; BP diastolic 66–79
[2022-06-22] MEDS: ONDANSETRON HCL INJ 2MG/ML 2ML 2 MG/ML VIAL IV PRN ×5 (02:10→20:22)
[2022-06-22] MEDS: HYDROMORPHONE 1MG/1ML INJ IV PRN ×5 (02:10→20:23)
[2022-06-22] MEDS: SODIUM CHLORIDE 0.9% 1000ML 1,000 ML IV SCH ×3 (06:24→20:23)
[2022-06-22] MEDS: ZOLPIDEM TARTRATE 10 MG TAB PO SCH (21:49)
[2022-06-23] MEDS: HYDROMORPHONE 1MG/1ML INJ IV PRN ×6 (01:05→23:20)
[2022-06-23] MEDS: ONDANSETRON HCL INJ 2MG/ML 2ML 2 MG/ML VIAL IV PRN ×6 (01:05→23:19)
[2022-06-23 02:37] VITALS: BP 121/79
[2022-06-23 06:00] VITALS: BP 120/74
[2022-06-23] MEDS: SODIUM CHLORIDE 0.9% 1000ML 1,000 ML IV SCH ×3 (06:21→19:13)
[2022-06-23 08:02] VITALS: BP 124/73
[2022-06-23] MEDS ORDERED: ACETAMINOPHEN/CODEINE 300MG - 30MG TAB PO PRN (09:30)
[2022-06-23] MEDS ORDERED: PHENAZOPYRIDINE HCL 100 MG TAB PO PRN (09:30)
[2022-06-23 11:47] VITALS: BP 128/71
[2022-06-23 15:35] VITALS: BP 125/79
[2022-06-23 20:52] VITALS: BP 123/66
[2022-06-23] MEDS: ZOLPIDEM TARTRATE 10 MG TAB PO SCH (21:12)
[2022-06-24] VITALS (9 sets, daily range): BP systolic 115–132; BP diastolic 66–83
[2022-06-24] MEDS: HYDROMORPHONE 1MG/1ML INJ IV PRN ×4 (03:48→21:12)
[2022-06-24] MEDS: ONDANSETRON HCL INJ 2MG/ML 2ML 2 MG/ML VIAL IV PRN ×4 (03:48→21:13)
[2022-06-24] MEDS: SODIUM CHLORIDE 0.9% 1000ML 1,000 ML IV SCH ×3 (05:19→16:54)
[2022-06-24 06:26] LABS: BASOPHILS % 0.5 % (0.0-1.0); EOSINOPHILS # (AUTO) 0.3 (0.0-0.4); EOSINOPHILS % 3.6 % (0.0-6.0); HEMATOCRIT 31.7 % (34.2-44.1); HEMOGLOBIN 9.8 g/dL (12.0-16.0); LYMPHOCYTES # (AUTO) 2.7 (1.0-3.2); MEAN CORPUSCULAR HEMOGLOBIN 27.4 pg (28-32); MEAN CORPUSCULAR HGB CONC 30.9 g/dL (31-35); MEAN CORPUSCULAR VOLUME 88.5 fL (81-99); MONOCYTES # (AUTO) 0.4 (0.2-0.8); MONOCYTES % 5.6 % (4.4-11.3); NEUTROPHILS # (AUTO) 3.9 (2.1-6.9); NEUTROPHILS % 52.9 % (38.7-80.0); PLATELET COUNT 324 x10e3/uL (140-360); RED BLOOD COUNT 3.58 x10e6/uL (3.6-5.1)
[2022-06-24 06:44] LABS: ANION GAP 13.6 mmol/L (8-16); CALCIUM 8.9 mg/dL (8.4-10.2); CREATININE, SERUM 0.75 mg/dL (0.57-1.11); POTASSIUM 3.6 mmol/L (3.5-5.1)
[2022-06-24] MEDS ORDERED: IOPAMIDOL 610MG/1ML 300 MG/ML VIAL IV ONE (07:16)
[2022-06-24] MEDS ORDERED: HYDROMORPHONE 1MG/1ML INJ ONE (08:32)
[2022-06-24] MEDS ORDERED: ACETAMINOPHEN 1000 MG/100 ML 100 ML IV ONE (09:03)
[2022-06-24] MEDS ORDERED: KETOROLAC TROMETHAMINE 30 MG/ML VIAL ONE (09:03)
[2022-06-24] MEDS ORDERED: ONDANSETRON HCL INJ 2MG/ML 2ML 2 MG/ML VIAL ONE (09:08)
[2022-06-24] MEDS ORDERED: FENTANYL CITRATE/PF 100MCG/2 ML INJ ONE (13:31)
[2022-06-24] MEDS: ZOLPIDEM TARTRATE 10 MG TAB PO SCH (22:39)
[2022-06-25 00:38] VITALS: BP 127/78
[2022-06-25] MEDS: ONDANSETRON HCL INJ 2MG/ML 2ML 2 MG/ML VIAL IV PRN ×5 (01:15→17:45)
[2022-06-25] MEDS: HYDROMORPHONE 1MG/1ML INJ IV PRN ×5 (01:15→17:45)
[2022-06-25] MEDS: SODIUM CHLORIDE 0.9% 1000ML 1,000 ML IV SCH ×2 (03:55→11:02)
[2022-06-25 04:00] VITALS: BP 128/70
[2022-06-25 09:04] VITALS: BP 136/77
[2022-06-25 09:34] VITALS: BP 136/77
[2022-06-25 12:37] VITALS: BP 128/82
[2022-06-25 16:06] VITALS: BP 123/74
== END 2022-06-25 18:22 | disposition home or self-care (01) | DRG 659 ==
LOC: ER 20:05 → ERHOLD 20:15 → MED/SURG3 22:11 → MED/SURG2 06-24 09:24
PROVIDERS: ADMIT Internal Medicine; ATTEND Internal Medicine
PROC: 0TC68ZZ Extirpation of Matter from Right Ureter, Via Natural or Artificial Opening Endoscopic (ICD-10-PCS; 2022-06-24)
PROC: BT141ZZ Fluoroscopy of Kidneys, Ureters and Bladder using Low Osmolar Contrast (ICD-10-PCS; 2022-06-24)
PROC: 0TP98DZ Removal of Intraluminal Device from Ureter, Via Natural or Artificial Opening Endoscopic (ICD-10-PCS; 2022-06-24)
PROC: 0TC78ZZ Extirpation of Matter from Left Ureter, Via Natural or Artificial Opening Endoscopic (ICD-10-PCS; principal; 2022-06-24 07:13)
PROC: 0T788DZ Dilation of Bilateral Ureters with Intraluminal Device, Via Natural or Artificial Opening Endoscopic (ICD-10-PCS; 2022-06-24 07:13)
DX: T83.592A Infection and inflammatory reaction due to indwelling ureteral stent, initial encounter (principal); A41.9 Sepsis, unspecified organism; N30.90 Cystitis, unspecified without hematuria; T83.84XA Pain due to genitourinary prosthetic devices, implants and grafts, initial encounter; Z96.0 Presence of urogenital implants; E66.09 Other obesity due to excess calories; Z68.33 Body mass index [BMI] 33.0-33.9, adult; F98.8 Other specified behavioral and emotional disorders with onset usually occurring in childhood and adolescence; E87.6 Hypokalemia
CPT/HCPCS: 36415; 74018; 74420; 80048; 80053; 81001; 81025; 83518; 83605; 85025; 87040; 87070; 87086; 87186; 88300; 93005; 94799; 96361; 96366; 99284; C1766; C1769; J0330; J1100; J1170; J1885; J2001; J2270; J2405; J2543; J7030